=== PATIENT | female | born 1970 | race Caucasian/White ===

== ENCOUNTER 2017-04-26 10:05 | Observation (INO) | payer BC, SELFPAY ==
[2017-04-26] VITALS (23 sets, daily range): BP systolic 127–173; BP diastolic 63–99; PULSE 70–94; RESP 16–24; TEMP 36.6–37.2; O2SAT 91–98; BMI 15.0; BMI 14.8
--- NOTE | 2017-04-26 | IR_ITS ---
PROCEDURE: 1. Catheter placement in the abdominal aorta 2. Abdominal aortography 3. Repositioning of the catheter in the abdominal aorta 4. Left femoral arterial access 5. Left femoral artery retrograde angiogram 6. Angioplasty stent deployment to the left common iliac artery 7. Angioplasty stent deployment to the left external iliac artery 8. Angioplasty stent deployment to the right common iliac artery 9. Reconstruction of the distal abdominal aorta with bilateral stents 10. Catheter placement in the abdominal aorta post stent deployment 11. Bilateral iliofemoral runoff 12. Angiography via the left femoral sheath with unilateral runoff INDICATION: 1. 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 Peripheral artery disease Acutely ischemic left leg with acute limb threatening ischemia Informed consent was obtained prior to the procedure. COMPLICATIONS: None ESTIMATED BLOOD LOSS: Blood loss less than 10 cc. TECHNIQUE:1% lidocaine used to anesthetize the right groin. The right femoral artery was accessed via the Seldinger technique and a 5 Cymro sheath was placed in the right femoral artery. A pigtail catheter was advanced into the abdominal aorta and abdominal aortography was performed. The catheter was then repositioned and bilateral iliofemoral angiography was performed. Following this one percent lidocaine was used to anesthetize the left groin in the left femoral artery was accessed via the Seldinger technique. A 6 Cymro sheath was placed in the left femoral artery and an advantage wire was used to traverse the occlusion in the left external iliac artery and left common iliac artery in a retrograde manner. Following this a 7 mm x 40 mm balloon was used to dilate the common left iliac artery. 5000 units of heparin was administered prior to any balloon manipulation giving an ACT of 247 seconds therefore an additional 2000 units of heparin was administered. 2 9 mm x 60 mm self-expanding stents were deployed in the distal abdominal aorta extending into the bilateral common iliac arteries. Following this an 8 mm x 59 mm Hansen balloon mounted stent was deployed in the left external iliac artery while still overlapping the stent in the left common iliac artery. This was deployed at 14 lacho. Following this a large thrombus was identified in the distal common femoral artery partially obstructing flow to the left SFA and left profunda femoris. The pigtail catheter was placed back in the abdominal aorta and abdominal aortography was performed. Unilateral runoff was then performed on the left side. A 9 mm x 60 mm balloon was placed back into the right common iliac artery and deployed at 10 lacoh in order to post dilate. Excellent angiographic results were obtained with 100% occlusion of the left common and external iliac artery being reduced to less than 10% with 2 bare-metal stents 1 self-expanding one balloon expanding at the end of the procedure the apparatus was removed the groin is reprepped closure changed both she's removed good hemostasis was achieved bilaterally using Perclose devices. ANGIOGRAPHIC RESULTS: Suprarenal and infrarenal abdominal aorta are normal The mesenteric arteries and bilateral renal arteries are normal The right common iliac artery has a mid vessel 50% stenosis while the internal iliac arteries patent and the right external iliac artery and common femoral artery have mild disease. The right profunda femoris is normal while the right superficial femoral artery and right popliteal artery is normal. There is three-vessel runoff below the knee on the right side The left common iliac artery is proximally occluded as is the left external iliac artery. There is reconstitution at the left common femoral artery. The left profunda femoris artery is normal while
--- NOTE | 2017-04-26 10:11 | HMH.EDGENADL ---
ED Disposition Clinical Impression: Ischemic leg, Hyperlipidemia Disposition: Still a Patient Condition on Discharge: Serious Referrals: Amado Pandya MD [Primary Care Provider] - - Critical Care Critical Care Time: Yes Attestation: On , the high probability of a clinically significant, sudden or life threatening deterioration of the following system(s) required my full and direct attention, intervention and personal management. The time I documented below is in addition to time spent performing reported procedures but includes the following listed in this critical care notation. Vital system(s) involved:: Circulatory Failure My critical care processes included: Assessment & monitoring of V/S, Data Review/Interpretation, Coordinating Care, Documentation Medical Decision Making Vital Signs: 04/26/17 10:09 04/26/17 13:26 Temperature 98.2 F 98.2 F Temperature Source Oral Oral Pulse Rate 94 H Pulse Rate [Right Brachial] 94 H Respiratory Rate 18 16 Blood Pressure 162/84 Blood Pressure [Right Arm] 171/97 Blood Pressure Mean [Right Arm] 121 Blood Pressure Source Automatic Cuff Blood Pressure Source [Right Arm] Automatic Cuff Blood Pressure Position Supine Blood Pressure Position [Right Arm] Supine 02 Sat by Pulse Oximetry 98 Oxygen Delivery Method Room Air Room Air - Lab Data Lab Results 04/26/17 10:15: WBC 10.3, RBC 4.87, Hgb 14.1, Hct 45.1, MCV 92.6, MCH 29.0, MCHC 31.4 L, RDW 14.5, Plt Count 633 H, MPV 6.8 L, Neut % (Auto) 80.7 H, Lymph % (Auto) 14.0, [place] % (Auto) 3.0, Eos % (Auto) 1.9, Baso % (Auto) 0.5, Neut # (Auto) 8.3 H, Lymph # (Auto) 1.3, [place] # (Auto) 0.3, Eos # (Auto) 0.2, Baso # (Auto) 0.1 04/26/17 10:15: PT 10.4, INR 0.96, APTT 27.7 04/26/17 10:15: Sodium 139, Potassium 4.3, Chloride 102, Carbon Dioxide 28, Anion Gap 13.3, BUN 8, Creatinine 0.71, Estimated Creat Clear 74, Estimated GFR 88, Est GFR ( Amer) 107, Glucose 103, Calcium 9.0, Total Bilirubin 0.2, AST 18, ALT 35, Alkaline Phosphatase 62, Total Protein 8.6 H, Albumin 3.2 L, Globulin 5.4 H, Albumin/Globulin Ratio 0.6 L, Triglycerides 135, Cholesterol 156, LDL Cholesterol 93, VLDL Cholesterol 27, HDL Cholesterol 36, Cholesterol/HDL Ratio 4.3 H Result diagrams: 04/26/17 10:15 04/26/17 10:15 Orders (Tests/Meds): ED MEDICATIONS Generic Name Dose Route Start Last Admin Trade Name Freq PRN Reason Stop Dose Admin Diphenhydramine HCl 50 mg 04/26/17 13:33 04/26/17 13:36 Benadryl 50mg/1ml Vial IV 04/26/17 13:34 50 mg ONCE ONE Administration Fentanyl Citrate 50 mcg 04/26/17 13:33 Fentanyl 100mcg/2ml Vial IV 04/27/17 13:33 Q3MINP PRN Moderate to Severe Pain Fentanyl Citrate 25 mcg 04/26/17 13:33 Fentanyl 100mcg/2ml Vial IV 04/27/17 13:33 Q3MINP PRN Moderate to Severe Pain Flumazenil 0.2 mg 04/26/17 13:33 Romazicon 0.1mg/Ml 5ml Vial IV 04/26/17 23:00 NEEDED PRN Sedation Heparin Sodium (Porcine) 10,000 unit 04/26/17 13:33 Heparin 1,000 Units/Ml 10ml Vial ([employer]) IV 04/26/17 17:33 NEEDED PRN Emergency Box Rn Care Transition Heparin Sodium/Sodium Chloride 3,000 unit 04/26/17 13:33 04/26/17 13:39 Heparin 1000 Units/500ml Ns ([employer]) IV 04/26/17 13:34 3,000 unit ONCE ONE Administration Sodium Chloride 1,000 mls @ 25 mls/hr 04/26/17 13:45 04/26/17 13:37 Sod Chlor 0.9% 1000ml Bag IV 04/27/17 13:33 25 mls/hr .Q25H JARON Administration Lidocaine HCl 20 ml 04/26/17 13:33 04/26/17 13:36 Lidocaine 1% 20ml Mdv IJ 04/26/17 13:34 20 ml ONCE ONE Administration Midazolam HCl 1 mg 04/26/17 13:33 Midazolam 2mg/2ml Vial IV 04/27/17 13:33 Q3MINP PRN Sedation Midazolam HCl 1 mg 04/26/17 13:33 Midazolam 1mg/Ml 5ml Vial IV 04/27/17 13:33 Q3MINP PRN Sedation Naloxone HCl 0.4 mg 04/26/17 13:33 Narcan 0.4mg/Ml Vial IV 04/27/17 13:33 Q5MINP PRN Decreased respi
--- NOTE | 2017-04-26 10:24 | PC.NURSE ---
PT BROUGHT IN BY FOR EVAL. CAME TO SEE HIM IN OFFICE AND THERE WAS NO PULSE IN HER LEFT FOOT; REPORTS COLD AND BLUE TO TOES.
[2017-04-26 10:44] LABS: Hematocrit 45.1 % (37.0-47.0); Hemoglobin 14.1 g/dL (12.2-16.2); Mean Corpuscular HGB Conc 31.4 g/dL (31.8-35.4); Mean Corpuscular Volume 92.6 fl (81-99); Red Blood Count 4.87 M/mm3 (4.20-5.40); Red Cell Distribution Width 14.5 % (11.5-17.5); White Blood Count 10.3 K/mm3 (4.8-10.8)
[2017-04-26 10:45] LABS: Basophils # 0.1 K/mm3 (0-0.2); Basophils % 0.5 % (0.1-2.0); Eosinophils # 0.2 K/mm3 (0.0-0.4); Eosinophils % 1.9 % (0.1-12.0); Mean Platelet Volume 6.8 fl (7.4-10.4); Monocytes # 0.3 K/mm3 (0.1-1.0); Neutrophils # 8.3 K/mm3 (1.8-7.8); Neutrophils % 80.7 % (37.0-80.0); Platelet Count 633 K/mm3 (142-424)
[2017-04-26 10:47] LABS: Lymphocytes # 1.3 K/mm3 (0.7-4.5)
[2017-04-26 10:51] LABS: Activated Partial Thrombo Time 27.7 seconds (23.6-34.0); INR 0.96 (0.9-1.1); Prothrombin Time 10.4 seconds (9.4-11.8)
[2017-04-26 10:53] LABS: Alanine Aminotransferase 35 U/L (12-78); Albumin Level 3.2 gm/dL (3.4-5.0); Albumin/Globulin Ratio 0.6 (1.1-1.8); Alkaline Phosphatase 62 U/L (46-116); Anion Gap 13.3 mEq/L (5-15); Aspartate Amino Transferase 18 U/L (15-37); Bilirubin,Total 0.2 mg/dL (0.2-1.0); Blood Urea Nitrogen 8 mg/dL (7-18); Carbon Dioxide 28 mmol/L (21.0-32.0); Chloride 102 mmol/L (98-107); Chol/HDL Ratio 4.3 (1-3.5); Cholesterol 156 mg/dL (140-200); Creatinine Clearance Estimated 74 mL/min (0-300); Creatinine,Serum 0.71 mg/dL (0.55-1.02); Estimated Glomerular Filt Rate 88 ml/min (>60); GFR (African American) 107 ML/MIN (>60); Globulin 5.4 gm/dl (1.3-3.2); Glucose 103 mg/dL (74-106); HDL Cholesterol 36 mg/dL (29-89); LDL Cholesterol 93 mg/dL (0-130); Potassium 4.3 mmoL/L (3.5-5.1); Sodium 139 mmol/L (136-145); Total Protein,Serum 8.6 gm/dL (6.4-8.2); Triglycerides 135 mg/dL (30-200); VLDL Cholesterol 27 mg/dL (0-40)
[2017-04-26 17:12] LABS: INR 1.08 (0.9-1.1); Prothrombin Time 11.7 seconds (9.4-11.8)
[2017-04-26 17:30] LABS: Activated Partial Thrombo Time 119.5 seconds (23.6-34.0)
--- NOTE | 2017-04-26 19:39 | PC.NURSE ---
REPORT GIVEN TO VLADIMIR BLUE
[2017-04-27] VITALS (11 sets, daily range): BP systolic 99–138; BP diastolic 58–84; PULSE 70–110; RESP 16–18; TEMP 36.6–37.2; O2SAT 92–98
--- NOTE | 2017-04-27 00:11 | PC.NURSE ---
UPON ASSESSMENT OF PT. SHE WAS NOTED TO HAVE COOL LLE. AREA MARKED @ POINT OF TEMP DIFFERENCE. THIS WAS ALSO REPORTED BY AM NURSE. IT WAS REPORTED TO TURN HEPARIN GTT ON @ 2000 @ 10 ML/HR PER MD. HEPARIN WAS TURNED OFF DUE TO PRIOR PTT. HEPARIN WAS STARTED. MD CALLED @ 1125 FOR STATUS OF PT. MD WAS TOLD THAT LLE CONTINUES TO NOT HAVE PULSE AND IS COOL TO TOUCH. MD ORDERED HEPARIN @ 800 UNITS/HR. HEPARIN WAS INCREASED TO 16 ML/HR. INTEGRILIN ALSO INFUSING @ 2.9 ML/HR. PT PULSE WAS ASSESSED AGAIN WITH DOPPLER. NO PULSE IN LLE @ THIS TIME. PT STATES THAT SHE HAS DISCOMFORT TO HIP AND NEEDLES IN LLE. MD AWARE. V/S ARE STABLE AT THIS TIME. PT IS ON ROOM AIR. WILL CONTINUE TO MONITOR.
[2017-04-27 02:33] LABS: Activated Partial Thrombo Time 31.2 seconds (23.6-34.0)
--- NOTE | 2017-04-27 03:47 | PC.NURSE ---
Addendum entered by mary Frost RN 04/27/17 04:09: INTEGRILIN Original Note: HEPARIN WAS INCREASED THIS AM TO 900 UNITS/HR [facility]. ADDITIONAL PTT SCHEDULED THIS AM @ 0830. INTEGRELIN CONTINUES TO INFUSE @ 2.9 ML/HR. PT STATES THAT SHE CAN FEEL MORE IN LLE THAN BEFORE. LLE IS WARM TO ANKLE THAN BECOMES COOL. THIS IS BETTER THAN EARLY IN SHIFT. PEDAL PULSE IS STILL NOT DETECTED. NOT WITH DOPPLER EITHER. PT IS ON 2L O2 NC WITH SAT OF 94%. LUNGS CONTINUE TO HAVE RHONCHI TO BILATERAL BASES. PT HAS BEEN UP TO BSC THIS SHIFT. URINE OUTPUT 1000 CC. V/S ARE STABLE. PT REMAINS NSR ON TELEMETRY. WILL CONTINUE TO MONITOR.
--- NOTE | 2017-04-27 05:39 | PC.NURSE ---
UPON ASSESSMENT THIS AM OF PT'S LLE. IT WAS NOTED THAT LLE WAS WARM TO TOUCH. PEDAL PULSE WAS ASSESSED, BUT WAS NOT FELT. INFERIOR DORSALIS PEDIS WAS PALPABLE BY TOUCH. DOPPLER WAS USED AGAIN AND PEDAL PULSE WAS HEARD THROUGH DOPPLER . WILL NOTIFY IN AM. HEPARIN GTT CONTINUES TO INFUSE @ 18 ML/HR. INTEGRILIN INFUSING @ 2.9 ML/HR. V/S STABLE. WILL CONTINUE TO MONITOR.
--- NOTE | 2017-04-27 07:41 | PC.NURSE ---
handoff to Amol Lacey
[2017-04-27 09:06] LABS: Activated Partial Thrombo Time 32.3 seconds (23.6-34.0)
--- NOTE | 2017-04-27 10:17 | HMH.HP ---
*Admission Date: 04/26/17 *Chief complaint: leg pain *History of present illness: this wf was seen in pcp office with lt foot pain and noted to have acute art insuff and brought to ed e patient is brought in by Dr. Pandya from his office with symptoms and findings of acute ischemia of her left leg. 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 She has a burning sensation in the front of her lower leg when she touches it. Her left leg feels heavy. When she hangs her left foot down while in a seated position it turns purple, but her right foot does not. Her left toes feel cold. Dr. Pandya found her to have a cold, purple, pulseless left foot and has contacted Dr. Lynn and brings her to the emergency department for treatment of acute arterial ischemia. She not have known peripheral vascular disease. She is a smoker. [facility] History I have reviewed the patient's past medical history: Yes Medical History: Reports:: Chronic Obstructive Pulmonary Disease (COPD), Coronary Artery Disease, Hypertension, Myocardial Infarction Denies:: Cancer, Diabetes Mellitus Type 1, Diabetes Mellitus Type 2, Internal Pacemaker, MRSA Other Medical History: Reports: Anemia Laterality Cases: Bilateral: Tonsillectomy Other Surgeries: Yes: Appendectomy, Dilation and Curettage. No: Pacemaker Amputation: No Fractures: Yes (rt wrist,pelvis) - *Social History Educational Level: Completed High School Smoking Status: Current every day smoker Tobacco Type: cigarettes # Packs/Day (cigarettes): 1 #Yrs smoked (if former smoker): 35 Alcohol Intake: never Alcohol Intake Frequency:: holidays/special occasions only Substance Use Type: denies use Occupational Status: unemployed Housing: apartment Household Members: children - Psychiatric History Expresses thoughts of harming self/others: None Suicide Plan Description: No Plan *Family Hx:: Diabetes, Hypertension, Kidney Disease, Cancer Review of Systems - Review of Systems Review of systems:: pertinent systems reviewed and negative unless documented below - Constitutional Denies fever(s) - Eyes Denies change in vision - ENT Denies tongue swelling - *Cardiovascular Denies chest pain at rest, Denies shortness of breath - *Respiratory Denies chest congestion - *Gastrointestinal Denies abdominal pain - *Musculoskeletal Denies joint pain - Integumentary/Breasts Reports skin pain, Denies rash - *Neurologic Reports numbness, Reports weakness Meds Home Medications Medication Instructions Recorded Confirmed Type Albuterol Sulfate [Albuterol HFA 2 puff INHALATION Q6H 04/26/17 04/26/17 History Inhaler] Amlodipine Besylate [Norvasc 5mg 5 mg PO QDAY 04/26/17 04/26/17 History tablet] Allergies Allergy/AdvReac Type Severity Reaction Status Date / Time codeine [CODEINE] Allergy Unknown Verified 04/26/17 08:37 guaifenesin [GUAIFENESIN] Allergy Unknown Verified 04/26/17 08:37 hydrocodone [HYDROCODONE] Allergy Unknown Verified 04/26/17 08:37 terbutaline [TERBUTALINE] Allergy Unknown Verified 04/26/17 08:37 Exam Vital signs and Labs for Last 24 Hours: Temp Pulse Resp BP Pulse Ox 98.2 F 80 18 123/81 96 04/27/17 08:00 04/27/17 08:13 04/27/17 08:00 04/27/17 08:00 04/27/17 08:00 Laboratory Results - last 24 hr 04/26/17 16:55: PT 11.7, INR 1.08, APTT 119.5 H* D 04/27/17 02:10: APTT 31.2 04/27/17 08:49: APTT 32.3 I & O for Last 24 hours: Intake & Output 04/24/17 04/25/17 04/26/17 04/27/17 11:59 11:59 11:59 11:59 Intake Total 1592 / 1592 Output Total 1000 / 1000 Balance 592 / 592 Weight 105 lb 15.972 oz - Constitutional no acute distress - *Routine HEENT Exam Head: Present: normocephalic Eye: Present: EOMI, PERRL ENT: Absent: mucous membranes dry - *Routine Neck Exam Present: supp
--- NOTE | 2017-04-27 10:35 | PC.NURSE ---
DR CHAUDHARY AT BEDSIDE TO ASSESS PT FOR ROUNDS. SPOKE WITH DR GAMBLE AND INFORMED THIS RN TO DISCONTINUE TO HEPARIN AND INTEGRILIN INFUSIONS R/T IMPROVEMENT OF LLE. ALSO STATS PATIENT CAN COME OUT OF STEP DOWN AND INTO ACUTE STATUS.
--- NOTE | 2017-04-27 11:17 | HMH.PHAHEP ---
[facility] Pharmacy Heparin Dosing - Demographic Data Admission date:: 04/26/17 Date: 04/27/17 Time: 11:17 Allergies/Adverse Reactions: Allergies Allergy/AdvReac Type Severity Reaction Status Date / Time codeine [CODEINE] Allergy Unknown Verified 04/26/17 08:37 guaifenesin [GUAIFENESIN] Allergy Unknown Verified 04/26/17 08:37 hydrocodone [HYDROCODONE] Allergy Unknown Verified 04/26/17 08:37 terbutaline [TERBUTALINE] Allergy Unknown Verified 04/26/17 08:37 Height: 1.8 m Weight: 48 kg - Indication Medication therapy:: Heparin Current Indications:: DVT CVA?: No Bleeding problem?: No Kidney disease?: No [place]?: No Desired PTT range:: 50-70 seconds - Monitoring Dose Monitor 1 Date: 04/26/17 Time: 10:15 (BASELINE PTT) PTT Result:: 27.7 Infusion Rate:: 20 MLS/HR Comment:: PATIENT RECEIVED HEPARIN 3000 UNITS AT 1339 AND HEPARIN 5000 UNITS AT 1430 IN [facility] Dose Monitor 2 Date: 04/26/17 Time: 16:55 PTT Result:: 119.5 Infusion Rate:: STOP INFUSION FOR 2 HOURS AND AND RESTART AT 10 MLS/HR Comment:: [id number], ALSO ON INTEGRILIN DRIP Dose Monitor 3 Date: 04/27/17 Time: 02:10 PTT Result:: 31.2 Infusion Rate:: 18 MLS/HR Dose Monitor 4 Date: 04/27/17 Time: 08:49 PTT Result:: 32.3 Infusion Rate:: 22 MLS/HR - Core Measures Is INR > or = 2 at discharge?: No Most Recent Labs:: Laboratory Results - last 24 hr 04/26/17 16:55: PT 11.7, INR 1.08, APTT 119.5 H* D 04/27/17 02:10: APTT 31.2 04/27/17 08:49: APTT 32.3 If INR was < than 2.0 why was therapy stopped?: CLOT BROKE UP FROM STENTS IN [facility] [employer] [facility] Were Heparin and Warfarin started on the same day?: No If not, why?: HEPARIN STOPPED AFTER CLOT BROKE UP IN [facility] Comments:: DISCHARGED ON ASPIRIN AND BRILINTA
--- NOTE | 2017-04-27 11:20 | P.CONPHA_ITS ---
[facility] Pharmacy Heparin Dosing - Demographic Data Admission date:: 04/26/17 Date: 04/27/17 Time: 11:17 Allergies/Adverse Reactions: Allergies Allergy/AdvReac Type Severity Reaction Status Date / Time codeine [CODEINE] Allergy Unknown Verified 04/26/17 08:37 guaifenesin [GUAIFENESIN] Allergy Unknown Verified 04/26/17 08:37 hydrocodone [HYDROCODONE] Allergy Unknown Verified 04/26/17 08:37 terbutaline [TERBUTALINE] Allergy Unknown Verified 04/26/17 08:37 Height: 1.8 m Weight: 48 kg - Indication Medication therapy:: Heparin Current Indications:: DVT CVA?: No Bleeding problem?: No Kidney disease?: No [place]?: No Desired PTT range:: 50-70 seconds - Monitoring Dose Monitor 1 Date: 04/26/17 Time: 10:15 (BASELINE PTT) PTT Result:: 27.7 Infusion Rate:: 20 MLS/HR Comment:: PATIENT RECEIVED HEPARIN 3000 UNITS AT 1339 AND HEPARIN 5000 UNITS AT 1430 IN DIRECTOR CHANNEL Dose Monitor 2 Date: 04/26/17 Time: 16:55 PTT Result:: 119.5 Infusion Rate:: STOP INFUSION FOR 2 HOURS AND AND RESTART AT 10 MLS/HR Comment:: [id number], ALSO ON INTEGRILIN DRIP Dose Monitor 3 Date: 04/27/17 Time: 02:10 PTT Result:: 31.2 Infusion Rate:: 18 MLS/HR Dose Monitor 4 Date: 04/27/17 Time: 08:49 PTT Result:: 32.3 Infusion Rate:: 22 MLS/HR - Core Measures Is INR > or = 2 at discharge?: No Most Recent Labs:: Laboratory Results - last 24 hr 04/26/17 16:55: PT 11.7, INR 1.08, APTT 119.5 H* D 04/27/17 02:10: APTT 31.2 04/27/17 08:49: APTT 32.3 If INR was < than 2.0 why was therapy stopped?: CLOT BROKE UP FROM STENTS IN [facility] CHANNEL Were Heparin and Warfarin started on the same day?: No If not, why?: HEPARIN STOPPED AFTER CLOT BROKE UP IN [employer] CHANNEL Comments:: DISCHARGED ON ASPIRIN AND BRILINTA
--- NOTE | 2017-04-27 15:24 | HMH.PHAVTE ---
[facility] Pharmacy VTE Monitoring - Patient Demographics Admission date: 04/26/17 Report Date: 04/27/17 Time: 15:24 Allergies/Adverse Reactions: Patient Allergies codeine [CODEINE] Allergy (Unknown, Verified 04/26/17 08:37) guaifenesin [GUAIFENESIN] Allergy (Unknown, Verified 04/26/17 08:37) hydrocodone [HYDROCODONE] Allergy (Unknown, Verified 04/26/17 08:37) terbutaline [TERBUTALINE] Allergy (Unknown, Verified 04/26/17 08:37) Height: 1.8 m Weight: 48.08 kg Patient Problems: Current Active Problems Hyperlipidemia (Acute) Ischemic leg (Acute) Arterial insufficiency of lower extremity (Acute) - VTE Risk Labs: VTE Related Lab Results Hgb 14.1 g/dL (12.2-16.2) 04/26/17 10:15 Hct 45.1 % (37.0-47.0) 04/26/17 10:15 Plt Count 633 K/mm3 (142-424) H 04/26/17 10:15 PT 11.7 seconds (9.4-11.8) 04/26/17 16:55 INR 1.08 (0.9-1.1) 04/26/17 16:55 APTT 32.3 seconds (23.6-34.0) 04/27/17 08:49 BUN 8 mg/dL (7-18) 04/26/17 10:15 Creatinine 0.71 mg/dL (0.55-1.02) 04/26/17 10:15 Estimated Creat Clear 74 mL/min (0-300) 04/26/17 10:15 Was VTE Risk Assessment Performed: Yes VTE Score: 4 VTE Risk Level: Low Risk - Prophylaxis VTE Prophylaxis Ordered?: Yes Types of VTE Prophylaxis: IPCS Knee High Location of Applied Device: Bilateral Lower Extremeties Pharmacologic Type: Heparin (PT WAS ON HEPARIN WHEN ADMITTED. STOPPED AT 1015 THIS MORNING.)
[2017-04-28] VITALS: PULSE 80
[2017-04-28 03:58] VITALS: BP 133/69; PULSE 82; RESP 16; TEMP 36.9; O2SAT 98
[2017-04-28 04:00] VITALS: PULSE 111
--- NOTE | 2017-04-28 04:39 | PC.NURSE ---
PT HAS SLEPT. NO COMPLAINTS. CONTINUES ON 2L PER NC. NONPRODUCTIVE COUGH NOTED. NSR ON TELEMETRY. BILAT GROINS WITH DRSG INTACT. PEDAL PULSE LEFT POSITIVE WITH DOPPLER. RIGHT PEDAL PULSES PALPABLE.
[2017-04-28 07:16] VITALS: BP 108/62; PULSE 89; RESP 20; TEMP 36.7; O2SAT 93
--- NOTE | 2017-04-28 08:37 | HMH.DCSUM ---
General - General Admission date: 04/26/17 Discharge date: 04/28/17 HPI HPI: this wf was seen in pcp office with lt foot pain and noted to have acute art insuff and brought to ed e patient is brought in by Dr. Pandya from his office with symptoms and findings of acute ischemia of her left leg. 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 She has a burning sensation in the front of her lower leg when she touches it. Her left leg feels heavy. When she hangs her left foot down while in a seated position it turns purple, but her right foot does not. Her left toes feel cold. Dr. Pandya found her to have a cold, purple, pulseless left foot and has contacted Dr. Lynn and brings her to the emergency department for treatment of acute arterial ischemia. She not have known peripheral vascular disease. She is a smoker. Objective Vital signs: Temp Pulse Resp BP Pulse Ox 98.0 F 89 20 108/62 93 L 04/28/17 07:16 04/28/17 07:16 04/28/17 07:16 04/28/17 07:16 04/28/17 07:16 no acute distress - *Routine HEENT Exam Head: Present: normocephalic Eye: Present: EOMI, PERRL ENT: Present: mucous membranes moist - *Routine Neck Exam Present: supple - *Routine Respiratory Exam Absent: respiratory distress - *Routine Cardiovascular Exam Present: RRR, murmur - *Routine Abdominal Exam Present: soft - *Routine Extremities Exam Comments: looks good lt lower leg - *Routine Skin Exam Present: intact - *Routine Neurological Exam Present: alert, oriented X3, CN II-XII intact - Routine Psychiatric Exam Present: normal affect Hospital Course Hospital Course: pt was seen by card with urgent stenting and iv heparin ession: Successful stenting of the left common iliac artery and left external iliac artery. Another percent occlusion reduced to 0% with 2 bare-metal stents Successful stenting of the right common iliac artery moderate stenosis reduced to less than 10% with 1 bare-metal stent Successful reconstruction of the aortic bifurcation with 2 bare-metal stents Thrombus in the left proximal superficial femoral artery and left profunda femoris artery as well as distal left popliteal artery. Plan: Heparin and Integrilin digit should be continued overnight Patient needs to be monitored for acute or worsening ischemia the left leg. If this should occur she will be taken back to the [facility] and an antegrade stick will be performed in order to manually re-cannulate the infrageniculate vasculature. Otherwise we will hope Integrilin and heparin will provide clot dissolution overnight Avoidance of tobacco products Brilinta and aspirin High intensity statin therapy with goal LDL less than 55 Cardiac rehabilitation pt with ambulation and no pain today Results Labs on day of discharge: Labs from last 24 hours 04/27/17 08:49 APTT 32.3 DS: Diagnosis - Discharge Diagnosis (1) Arterial insufficiency of lower extremity Status: Resolved Meds Home Medications Medication Instructions Recorded Confirmed Type Albuterol Sulfate [Albuterol HFA 2 puff INHALATION Q6H 04/26/17 04/26/17 History Inhaler] Amlodipine Besylate [Norvasc 5mg 5 mg PO DAILY 04/26/17 04/27/17 History tablet] Gabapentin [Gabapentin 100mg Cap] 100 mg PO DAILY 04/27/17 04/27/17 History Allergies Allergy/AdvReac Type Severity Reaction Status Date / Time codeine [CODEINE] Allergy Unknown Verified 04/26/17 08:37 guaifenesin [GUAIFENESIN] Allergy Unknown Verified 04/26/17 08:37 hydrocodone [HYDROCODONE] Allergy Unknown Verified 04/26/17 08:37 terbutaline [TERBUTALINE] Allergy Unknown Verified 04/26/17 08:37 Discharge Plan - Patient Discharge Instructions ACTIVITY: Continue current activity DIET: continue same diet - Follow up Plan Follow up with:
--- NOTE | 2017-04-28 08:41 | P.DS_ITS ---
General - General Admission date: 04/26/17 Discharge date: 04/28/17 HPI HPI: this wf was seen in pcp office with lt foot pain and noted to have acute art insuff and brought to ed e patient is brought in by Dr. Pandya from his office with symptoms and findings of acute ischemia of her left leg. 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 She has a burning sensation in the front of her lower leg when she touches it. Her left leg feels heavy. When she hangs her left foot down while in a seated position it turns purple, but her right foot does not. Her left toes feel cold. Dr. Pandya found her to have a cold, purple, pulseless left foot and has contacted Dr. Lynn and brings her to the emergency department for treatment of acute arterial ischemia. She not have known peripheral vascular disease. She is a smoker. Objective Vital signs: Temp Pulse Resp BP Pulse Ox 98.0 F 89 20 108/62 93 L 04/28/17 07:16 04/28/17 07:16 04/28/17 07:16 04/28/17 07:16 04/28/17 07:16 no acute distress - *Routine HEENT Exam Head: Present: normocephalic Eye: Present: EOMI, PERRL ENT: Present: mucous membranes moist - *Routine Neck Exam Present: supple - *Routine Respiratory Exam Absent: respiratory distress - *Routine Cardiovascular Exam Present: RRR, murmur - *Routine Abdominal Exam Present: soft - *Routine Extremities Exam Comments: looks good lt lower leg - *Routine Skin Exam Present: intact - *Routine Neurological Exam Present: alert, oriented X3, CN II-XII intact - Routine Psychiatric Exam Present: normal affect Hospital Course Hospital Course: pt was seen by card with urgent stenting and iv heparin ession: Successful stenting of the left common iliac artery and left external iliac artery. Another percent occlusion reduced to 0% with 2 bare-metal stents Successful stenting of the right common iliac artery moderate stenosis reduced to less than 10% with 1 bare-metal stent Successful reconstruction of the aortic bifurcation with 2 bare-metal stents Thrombus in the left proximal superficial femoral artery and left profunda femoris artery as well as distal left popliteal artery. Plan: Heparin and Integrilin digit should be continued overnight Patient needs to be monitored for acute or worsening ischemia the left leg. If this should occur she will be taken back to the [facility] and an antegrade stick will be performed in order to manually re-cannulate the infrageniculate vasculature. Otherwise we will hope Integrilin and heparin will provide clot dissolution overnight Avoidance of tobacco products Brilinta and aspirin High intensity statin therapy with goal LDL less than 55 Cardiac rehabilitation pt with ambulation and no pain today Results Labs on day of discharge: Labs from last 24 hours 04/27/17 08:49 APTT 32.3 DS: Diagnosis - Discharge Diagnosis (1) Arterial insufficiency of lower extremity Status: Resolved Meds Home Medications Medication Instructions Recorded Confirmed Type Albuterol Sulfate [Albuterol HFA 2 puff INHALATION Q6H 04/26/17 04/26/17 History Inhaler] Amlodipine Besylate [Norvasc 5mg 5 mg PO DAILY 04/26/17 04/27/17 History tablet
[2017-05-30 08:19] LABS: CATHL Activated Clotting Time 241 SEC (74-125)
[2017-05-30 08:20] LABS: CATHL Activated Clotting Time 258 SEC (74-125)
== END 2017-04-28 09:45 | disposition home or self-care (01) | DRG 253 ==
LOC: ER 10:41 → ICU 17:03 → 2ND 04-28 08:50 → ICU 05-17 14:07
PROVIDERS: Internal Medicine; Admitting Provider Emergency Medicine; Emergency Provider Emergency Medicine; Family Provider Emergency Medicine; PCP Emergency Medicine; Visit Provider Emergency Medicine
PROC: 04H033Z Insertion of Infusion Device into Abdominal Aorta, Percutaneous Approach (ICD-10-PCS; principal; 2017-04-26 13:30)
DX: I73.9 Peripheral vascular disease, unspecified (principal); I74.3 Embolism and thrombosis of arteries of the lower extremities; I75.022 Atheroembolism of left lower extremity; I10 Essential (primary) hypertension; Z72.0 Tobacco use; J44.9 Chronic obstructive pulmonary disease, unspecified
CPT/HCPCS: 36200; 36246; 36415; 37221; 37223; 37236; 75710; 75716; 80053; 80061; 85025; 85347; 85610; 85730; 93005; 93041; 94760; 94761; 99152; 99153; 99281; C1725; C1760; C1769; C1876; C1894; G0378; J1327; J1644; Q9966

== ENCOUNTER → 2017-05-22 06:53 | Outpatient (CLI) | payer BC, SELFPAY ==
--- NOTE | 2017-05-22 | CA_ITS ---
PROCEDURE: 2-D M-mode and color Doppler study INDICATIONS FOR THE TEST: Chest pain COPD+ Heart Murmur Tobacco Smoking+ Palpitations+ Fatigue Syncope Edema+ Hypertension+Diabetes Mellitus Rheumatic Fever SOB NEW+Obesity Hyperlipidemia Family History HD Additional History PAD, Hx of RI, dizziness, peripheral stents PATIENT INFORMATION HEIGHT: 66 WEIGHT: 110 GENDER: Female B/P: 123/81 2-D/M-MODE INTERPRETATION: 2-D MEASUREMENTS OBSERVED VALUES IN CMS Right Ventricular Dimension (RVDd) 1.8 Interventricular Septum (Thickness)(IVsd) 0.9 Left Ventricular Internal Dimensions(LVIDd) 3.8 Left Ventricular Posterior Wall (Thickness)(LVPWd) 1.0 Aortic Root 2.0 Aortic Cusp Separation 2.0 Left Atrial Dimensions (LAD) 2.1 2D 1. Left atrium is normal size, left ventricle is normal size, there is no concentric left ventricular hypertrophy, visually estimated ejection fraction 55% with no obvious regional wall motion abnormality. 2. The right atrium and right ventricle are normal size and contractility. 3. The aortic valve is minimally thickened and fibrosed. 4. The mitral and tricuspid valve are grossly normal. 5. The pulmonic valve is poorly visualized. 6. No significant pericardial effusion noted. DOPPLER INTERROGATION: Doppler interrogation of the aortic, mitral and tricuspid valvular presence of mild mitral and tricuspid regurgitation. Diastolic parameters are inconclusive. CONCLUSION: 1. Normal left ventricular size, preserved left ventricular systolic function, visually estimated ejection fraction 55% with no obvious regional wall motion abnormality, diastolic parameters are inconclusive. 2. Mild mitral and tricuspid regurgitation 3. No significant pericardial effusion noted.
--- NOTE | 2017-05-22 | CA_ITS ---
CARDIOLITE SPECT MYOCARDIAL PERFUSION SCAN, REST AND STRESS: EXERCISE STRESS [facility] REVIEW QGS EF AND WALL MOTION EVALUATION: QPS - PERFUSION EVALUATION HISTORY: pad, hld, htn, ex smoker, family h/o heart disease DOSE: 10.72 mCi technetium 99m mibi intravenously at rest followed by 32.3 mCi technetium 99m mibi following the intravenous ministration of 0.4 mg of Lexiscan. Resting blood pressure is 155/82. Stress blood pressure 136/78. FINDINGS: Ejection fraction is calculated to be 67. Uniform myocardial activity with both stress and rest gated images calculated ejection fraction of 67% with normal wall motion IMPRESSION: No scintigraphic evidence of Lexiscan-induced myocardial ischemia with normal ejection fraction and normal wall motion
--- NOTE | 2017-05-22 06:57 | NM_ITS ---
CARDIOLITE SPECT MYOCARDIAL PERFUSION SCAN, REST AND STRESS: EXERCISE STRESS [facility] REVIEW QGS EF AND WALL MOTION EVALUATION: QPS - PERFUSION EVALUATION HISTORY: pad, hld, htn, ex smoker, family h/o heart disease DOSE: 10.72 mCi technetium 99m mibi intravenously at rest followed by 32.3 mCi technetium 99m mibi following the intravenous ministration of 0.4 mg of Lexiscan. Resting blood pressure is 155/82. Stress blood pressure 136/78. FINDINGS: Ejection fraction is calculated to be 67. Uniform myocardial activity with both stress and rest gated images calculated ejection fraction of 67% with normal wall motion IMPRESSION: No scintigraphic evidence of Lexiscan-induced myocardial ischemia with normal ejection fraction and normal wall motion
--- NOTE | 2017-05-22 07:51 | HMH.ITSHM ---
ATORVASTATIN VENTOLIN BRILINTA AMLODIPINE ASA
--- NOTE | 2017-05-22 08:40 | CA_ITS ---
CARDIOLITE SPECT MYOCARDIAL PERFUSION SCAN, REST AND STRESS: EXERCISE STRESS [facility] REVIEW QGS EF AND WALL MOTION EVALUATION: QPS - PERFUSION EVALUATION HISTORY: pad, hld, htn, ex smoker, family h/o heart disease DOSE: 10.72 mCi technetium 99m mibi intravenously at rest followed by 32.3 mCi technetium 99m mibi following the intravenous ministration of 0.4 mg of Lexiscan. Resting blood pressure is 155/82. Stress blood pressure 136/78. FINDINGS: Ejection fraction is calculated to be 67. Uniform myocardial activity with both stress and rest gated images calculated ejection fraction of 67% with normal wall motion IMPRESSION: No scintigraphic evidence of Lexiscan-induced myocardial ischemia with normal ejection fraction and normal wall motion
== END ==
PROVIDERS: Family Provider Emergency Medicine; PCP Emergency Medicine; Visit Provider Internal Medicine
DX: R94.31 Abnormal electrocardiogram [ECG] [EKG] (principal)
CPT/HCPCS: 78452; 93005; 93017; 93306; A9502; J2785

== ENCOUNTER → 2017-06-10 07:41 | Outpatient (CLI) | payer BC, SELFPAY ==
--- NOTE | 2017-06-10 07:44 | MR_ITS ---
MR lumbar spine wo con, MR 3-d myelogram/MRCP, the the the HISTORY: PT states low back pain X years. Lt leg pain, numbness and tingling. ORDERING PHYSICIAN: Amado Pandya MD PATIENT AGE: 47 years COMPARISON: MRI 12/03/14 TECHNIQUE: Standard multiplanar multiecho sequences are performed without contrast. 3-D MIP and myelographic images are also rendered and reviewed FINDINGS: There are only 4 lumbar segments as noted on the previous plain films and previous MRI. If any intervention is contemplated then correlation with plain films and labeling system utilized recommended. There is normal alignment. The spinal cord ends at the T12-L1 level. T12-L1, L1-L2, and L2-L3 have an unremarkable appearance. L3-L4: Mild concentric bulging disc with mild disc desiccation and mild facet hypertrophic change with mild bilateral lateral recess narrowing and mild left foraminal narrowing. There is very slightly eccentric toward the left but no neural impingement evident. L4 S1: Minimal bulging disc with mild facet and ligamentum flavum hypertrophy with mild bilateral foraminal narrowing slightly greater on the left. IMPRESSION: 1. 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 2. Mild bulging disc with facet hypertrophic changes at L3-L4 and L4 S1 with mild bilateral lateral recess and foraminal narrowing slightly greater on the left 3. No disc herniation or canal stenosis 4. Overall no significant change compared to the previous exam
== END ==
PROVIDERS: Family Provider Emergency Medicine; PCP Emergency Medicine; Visit Provider Emergency Medicine
DX: M54.9 Dorsalgia, unspecified (principal)
CPT/HCPCS: 72148; 76376

== ENCOUNTER → 2017-10-29 07:42 | Outpatient (CLI) | payer BC, SELFPAY ==
--- NOTE | 2017-10-29 08:30 | MM_ITS ---
MM Dig mamm BI DX w/CAD, US breast RT complete INDICATION: Palpable abnormality right breast ORDERING PHYSICIAN: Amado Pandya MD PATIENT AGE: 47 years COMPARISON: 08/04/2014 and 08/22/2015 TECHNIQUE: Bilateral diagnostic mammogram performed along with right breast ultrasound FINDINGS: There is dense fibroglandular tissue which decreases the sensitivity of mammography. Right breast: Asymmetric increased density is present in the outer aspect of the right breast at 3.5 cm. This represents a large cyst by ultrasound. There is a benign-appearing 4 mm nodule along posterior aspect of the right breast laterally also probably representing a small cyst 7:00. Left breast: Very dense fibroglandular tissue is present on the left with benign-appearing calcifications. Biopsy with clip in the upper outer quadrant. Asymmetric density is present involving the medial aspect of the left breast. This did have a similar appearance on 66 the. Previously noted microcalcifications in the lateral aspect of the left breast are no longer apparent. There are other faint calcifications in the central aspect of the left breast which have a benign appearance. Right breast ultrasound: There is a 3.3 x 2 cm nonappearing cyst in the 9:00 region of the right breast corresponding to palpable abnormality and the asymmetric density noted on the mammogram. IMPRESSION: Very dense fibroglandular tissue decreasing the sensitivity of mammography. Palpable abnormality in the outer aspect of the right breast corresponds to a benign-appearing cyst. No evidence of malignancy. This cyst could be aspirated with sonographic guidance if clinically warranted for patient comfort measures. BI-RADS Category: 2 Benign Finding(s) RECOMMENDED FOLLOW-UP: 1YR - 1 YEAR FOLLOW-UP (A letter has been sent to the patient regarding results of the study.)
== END ==
PROVIDERS: Family Provider Emergency Medicine; PCP Emergency Medicine; Visit Provider Emergency Medicine
DX: Z12.31 Encounter for screening mammogram for malignant neoplasm of breast (principal)
CPT/HCPCS: 76641; 77066

== ENCOUNTER → 2018-01-22 10:23 | Outpatient (CLI) | payer BC, SELFPAY ==
--- NOTE | 2018-01-22 10:26 | XR_ITS ---
EXAM: XR lumbar spine min 4V HISTORY: ITS.REASON: back pain ORDERING PHYSICIAN: Coty Davis PATIENT AGE: 47 years COMPARISON: None FINDINGS: Normal alignment. There are only 4 nonrib bearing lumbar segments. No fracture or dislocation. No lytic or blastic change. No significant degenerative change. The disc spaces are preserved. Bilateral iliac artery stents are present. IMPRESSION: Negative lumbar spine
== END ==
PROVIDERS: PCP Emergency Medicine; Visit Provider Nurse Practitioner Family
DX: M54.5 Low back pain (principal)
CPT/HCPCS: 72110

== ENCOUNTER 2018-01-29 07:28 | Outpatient (RCR) | payer BC, SELFPAY ==
--- NOTE | 2018-01-29 09:18 | HMH.PTOPEV ---
PT Outpatient Evaluation Rehab PT Outpatient Evaluation Start: 01/29/18 07:59 Freq: Status: Active Protocol: Document 01/29/18 08:55 LORRI (Rec: 01/29/18 09:18 LORRI [id number]) Electronically Signed By Mook Oliveros, PT 01/29/18 08:55 Outpatient Therapy Subjective History Subjective History Patient is a 47 year old female presenting to outpatient PT with reports of chronic low back pain with BLE radiculopathy (L>R) starting approximately 37 years ago. 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 She most recently saw her PCP and received oral steroids dose and 2 steriod injections that approx 1 week ago that has provided no relief. No previous PT Rx to report. Pt reports previous Rx with chiropractor that provided no relief. Comorbidites include hx of HI in 2017, 5 LE blood clots with B iliac vein stent placement, COPD. Chief Complaint Pain Spasms Paresthesia Weakness Symptom Type Ache Sharp Tingling Symptoms Relieved By Rest/Positioning Heat Ice OTC Meds Prescription Meds Activity Prior Functional Limitations Reaching Lifting Housework Standing Sitting Squatting Recreation Activity Walking Stairs Bending/Stooping Current Functional Limitations Reaching Lifting Housework Standing Sitting Squatting
== END 2018-01-29 07:30 | disposition home or self-care (01) ==
LOC: PT 07:28
PROVIDERS: Visit Provider Emergency Medicine
DX: M54.42 Lumbago with sciatica, left side (principal)
CPT/HCPCS: 97163

== ENCOUNTER 2018-08-21 12:10 | Emergency (ER) | payer BC, SELFPAY ==
[2018-08-21 12:19] VITALS: BP 143/93; PULSE 114; RESP 20; TEMP 36.8; O2SAT 97; BMI 18.8
[2018-08-21 12:24] VITALS: BP 143/93; PULSE 114; RESP 20; TEMP 36.8; O2SAT 97; BMI 18.8
--- NOTE | 2018-08-21 12:25 | XR_ITS ---
XR coccyx 2V CLINICAL INDICATION: Posttraumatic pain ITS.REASON: FALL ORDERING PHYSICIAN: Anne Saldana APRN PATIENT AGE: 48 years Comparison: None FINDINGS: There is a nondisplaced fracture involving the S5 sacral segment. There is minimal anterior angulation of the distal fracture fragment. IMPRESSION: Nondisplaced fracture involves the S5 sacral segment
--- NOTE | 2018-08-21 13:01 | HMH.EDUTC ---
[facility] [place] Disposition Clinical Impression: Fractured coccyx Qualifiers: Encounter type: initial encounter Fracture type: open Qualified Code(s): S32.2XXB - Fracture of coccyx, initial encounter for open fracture Disposition: Home, Self-Care Condition on Discharge: Good Instructions: Coccyx Fracture, DI for Coccyx Fracture Additional Instructions: Rest the extremity, Ice 15-20 minutes 3-4 times daily, Sitting on pillow may help with pain Soaking in warm water with epson salt may help with pain Return if needed Over the counter Motrin and Tyelnol as directed on package for pain Straight to ER if any life threatening symptoms Follow up with family doctor Referrals: Amado Pandya MD [Primary Care Provider] - As needed Time of Disposition: 13:40 Medical Decision Making - Sarkis Inquiry Pt receiving controlled substance: No Sarkis was queried for this patient: No Vital Signs: 08/21/18 12:19 08/21/18 12:24 Temperature 98.2 F 98.2 F Temperature Source Oral Oral Pulse Rate [Left Radial] 114 H 114 H Respiratory Rate 20 20 Blood Pressure [Right Arm] 143/93 H 143/93 H Blood Pressure Mean [Right Arm] 109 109 Blood Pressure Source [Right Arm] Automatic Cuff Automatic Cuff Blood Pressure Position [Right Arm] Sitting Sitting 02 Sat by Pulse Oximetry 97 97 Oxygen Delivery Method Room Air Room Air Orders (Tests/Meds): ORDERS Category Date Time Status XR coccyx 2V Stat Exams 08/21/18 12:25 Taken - Radiology Data #1 Image(s): Other (coccyx) Image Reviewed: Yes I reviewed the patient's radiology image w/the ED provider Fracture coccyx [facility] [place] HPI - General Stated complaint: Pain in tailbone ao 1100 Time Seen by Provider: 08/21/18 13:01 Mode of Arrival: Family Vehicle Source of Information: Patient Limitations: No Limitations Description of Symptoms (Recalled from Triage Doc. by RN): S/P FALL DOWN STEPS WITH C/O TAILBONE PAIN HEENT Symptoms (Recalled from RN notes): No Resp Symptoms (Recalled from RN notes): No Skin Symptoms (Recalled from RN notes): No MS Symptoms (Recalled from RN notes): Yes Functional Status (Recalled from RN notes): N/A - History of Present Illness Provider Complaint: Patient states that she was walking down the steps this morning at home and she was carrying the baby and she slipped and fell and landed on her butt on the steps and thinks she may have broke her tailbone State that she has been having pain when she sits or stands - Related Data Home Medications Medication Instructions Recorded Confirmed Aspirin [Aspirin 81mg EC Tab] 81 mg PO DAILY 05/28/18 06/13/18 Clopidogrel Bisulfate [Plavix 75mg 75 mg PO DAILY 05/28/18 06/13/18 Tab] Fluticasone Propionate [Flonase 1 spray INTRANASAL QDAY 05/28/18 06/13/18 Allergy Relief NS] albuterol sulfate 2.5 mg/3 mL 2.5 mg CONTINUOUS NEBULIZATION Q6H 06/02/18 06/13/18 (0.083 %) solution for nebulization PRN 30 Days ml buPROPion HCl [Wellbutrin 75mg 75 mg PO DAILY 06/13/18 06/13/18 Tablet] Previous Rx's Medication Instructions Recorded amlodipine 5 mg tablet 5 mg PO DAILY #30 tab 05/27/18 clonazepam 0.5 mg tablet 0.5 mg PO BID PRN #60 tab 06/02/18 albuterol sulfate HFA 90 2 puff INHALATION Q6H #6.7 g 06/25/18 mcg/actuation aerosol inhaler tiotropium bromide 2.5 2 puff INHALATION Q24H #4 g 06/25/18 mcg/actuation mist for inhalation atorvastatin 20 mg tablet 20 mg PO DAILY #30 tab 08/01/18 bupropion HCl XL 150 mg 24 hr 150 mg PO DAILY #30 tab 08/01/18 tablet, extended release loratadine 10 mg tablet See Rx Instructions .ROUTE 08/05/18 .COMPLEX #90 tab Allergies Allergy/AdvReac Type Severity Reaction Status Date / Time codeine [CODEINE] Allergy Unknown Verified 07/29/18 14:03 guaifenesin [GUAIFENESIN] Allergy Unknown Verified 07/29/18 14:03 hydrocodone [HYDROCODONE] Allergy Unknown Verified 07/29/18 14:03 terbutaline [TERBUTALINE] Allergy Unknown Verified 07/29/18 14:03 - Worker's Co
--- NOTE | 2018-08-21 13:06 | ED_ITS ---
[facility] [place] Disposition Clinical Impression: Fractured coccyx Qualifiers: Encounter type: initial encounter Fracture type: open Qualified Code(s): S32.2XXB - Fracture of coccyx, initial encounter for open fracture Disposition: Home, Self-Care Condition on Discharge: Good Instructions: Coccyx Fracture, DI for Coccyx Fracture Additional Instructions: Rest the extremity, Ice 15-20 minutes 3-4 times daily, Sitting on pillow may help with pain Soaking in warm water with epson salt may help with pain Return if needed Over the counter Motrin and Tyelnol as directed on package for pain Straight to ER if any life threatening symptoms Follow up with family doctor Referrals: Amado Pandya MD [Primary Care Provider] - As needed Time of Disposition: 13:40 Medical Decision Making - Sarkis Inquiry Pt receiving controlled substance: No Sarkis was queried for this patient: No Vital Signs: 08/21/18 12:19 08/21/18 12:24 Temperature 98.2 F 98.2 F Temperature Source Oral Oral Pulse Rate [Left Radial] 114 H 114 H Respiratory Rate 20 20 Blood Pressure [Right Arm] 143/93 H 143/93 H Blood Pressure Mean [Right Arm] 109 109 Blood Pressure Source [Right Arm] Automatic Cuff Automatic Cuff Blood Pressure Position [Right Arm] Sitting Sitting 02 Sat by Pulse Oximetry 97 97 Oxygen Delivery Method Room Air Room Air Orders (Tests/Meds): ORDERS Category Date Time Status XR coccyx 2V Stat Exams 08/21/18 12:25 Taken - Radiology Data #1 Image(s): Other (coccyx) Image Reviewed: Yes I reviewed the patient's radiology image w/the ED provider Fracture coccyx [facility] [place] HPI - General Stated complaint: Pain in tailbone ao 1100 Time Seen by Provider: 08/21/18 13:01 Mode of Arrival: Family Vehicle Source of Information: Patient Limitations: No Limitations Description of Symptoms (Recalled from Triage Doc. by RN): S/P FALL DOWN STEPS WITH C/O TAILBONE PAIN HEENT Symptoms (Recalled from RN notes): No Resp Symptoms (Recalled from RN notes): No Skin Symptoms (Recalled from RN notes): No MS Symptoms (Recalled from RN notes): Yes Functional Status (Recalled from RN notes): N/A - History of Present Illness Provider Complaint: Patient states that she was walking down the steps this morning at home and she was carrying the baby and she slipped and fell and landed on her butt on the steps and thinks she may have broke her tailbone State that she has been having pain when she sits or stands - Related Data Home Medications Medication Instructions Recorded Confirmed Aspirin [Aspirin 81mg EC Tab] 81 mg PO DAILY 05/28/18 06/13/18 Clopidogrel Bisulfate [Plavix 75mg 75 mg PO DAILY 05/28/18 06/13/18 Tab] Fluticasone Propionate [Flonase 1 spray INTRANASAL QDAY 05/28/18 06/13/18 Allergy Relief NS] albuterol sulfate 2.5 mg/3 mL 2.5 mg CONTINUOUS NEBULIZATION Q6H 06/02/18 06/13/18 (0.083 %) solution for nebulization PRN 30 Days ml buPROPion HCl [Wellbutrin 75mg 75 mg PO DAILY 06/13/18 06/13/18 Tablet] Previous Rx's Medication Instructions Recorded amlodipine 5 mg tablet 5 mg PO DAILY #30 tab 05/27/18 clonazepam 0.5 mg tablet 0.5 mg PO BID PRN #60 tab 06/02/18 albute
[2018-08-21 13:45] VITALS: BP 143/93; PULSE 114; RESP 20; TEMP 36.8; O2SAT 97
== END 2018-08-21 13:50 | disposition home or self-care (01) ==
LOC: ER 12:18 → UTC 12:21
PROVIDERS: Emergency Provider Nurse Practitioner; PCP Emergency Medicine
DX: S32.2XXA Fracture of coccyx, initial encounter for closed fracture (principal); W10.9XXA Fall (on) (from) unspecified stairs and steps, initial encounter; Y92.019 Unspecified place in single-family (private) house as the place of occurrence of the external cause; I10 Essential (primary) hypertension; J44.9 Chronic obstructive pulmonary disease, unspecified; I25.10 Atherosclerotic heart disease of native coronary artery without angina pectoris; F17.210 Nicotine dependence, cigarettes, uncomplicated; F41.9 Anxiety disorder, unspecified; Z88.5 Allergy status to narcotic agent
CPT/HCPCS: 72220; 99201

== ENCOUNTER → 2018-10-10 14:55 | Outpatient (CLI) | payer BC, SELFPAY ==
--- NOTE | 2018-10-10 15:04 | US_ITS ---
US transvaginal HISTORY: ITS.REASON: US T/V- Heavy Bleeding ORDERING PHYSICIAN: Jose Briggs MD PATIENT AGE: 48 years Comparison: None FINDINGS: The empty uterus measures 6.4 x 3.9 x 5.3 cm. Endometrial thickness is 8.7 mm. Right ovary is 2.6 x 1.6 x 2.1 cm. There is blood flow to the right ovary. There is a hypoechoic nodule in the periphery of the right ovary and this measures 1.4 cm. Left ovary is 2.3 x 1.3 x 1.9 cm and shows normal blood flow. There is a anechoic smoothly marginated lesion in the left ovary measuring 1.3 cm with distal acoustic enhancement. There is no cul-de-sac fluid. Impression: Right ovarian 1.4 cm lesion possible chronic hemorrhagic cyst. Consider follow-up in 6-8 weeks. Left ovarian benign 1.3 cm cyst.
== END ==
PROVIDERS: PCP Emergency Medicine; Visit Provider Nurse Practitioner Obstetrics & Gynecology
DX: N92.0 Excessive and frequent menstruation with regular cycle (principal)
CPT/HCPCS: 76830

== ENCOUNTER → 2018-11-10 09:01 | Outpatient (CLI) | payer BC, SELFPAY ==
--- NOTE | 2018-11-10 09:04 | MM_ITS ---
PROCEDURE: MM DIG SCREENING MAMM BI W/CAD CLINICAL INDICATION: screening Previous surgery for lump removal left breast for benign disease. COMPARISON: DMDBAV DIG MAMM-DX KONRAD W ADD VIEWS from 08/22/2015 DMDXUL DIG MAMM-DX UNI-LT from 09/14/2015 DXBI MM Dig mamm BI DX w/CAD from 10/29/2017 TECHNIQUE: Standard CC and MLO images were obtained. R2 CAD reviewed. FINDINGS: There is a markedly dense and heterogenic parenchymal pattern and the findings of lateral and symmetrical. The dominant density outer quadrant right breast seen on the previous study is less prominent and this was shown to be a benign-appearing cyst on ultrasound. This has either been possibly aspirated or decompressed spontaneously. There is some very minimal post surgical scarring upper outer quadrant left breast. There are few benign-appearing calcifications left breast along with the biopsy clip. There is a stable small round benign-appearing nodular density outer quadrant right breast. There is no suspicious lesion on the no suspicious microcalcifications. IMPRESSION: Diffusely dense parenchymal pattern with no suspicious lesions seen BI-RAD Category: FOLLOW-UP: 1YR 1 Year Follow-up (A letter has been sent to the patient regarding results of the study.) Dictated by: Dr. Benson Jiang MD 11/11/2018 10:55 Signed by: <Electronically signed by Dr. Benson Jiang MD in [place]> 11/11/2018 10:55
== END ==
PROVIDERS: PCP Emergency Medicine; Visit Provider Emergency Medicine
DX: Z12.31 Encounter for screening mammogram for malignant neoplasm of breast (principal)
CPT/HCPCS: 77067

== ENCOUNTER → 2018-11-20 12:47 | Outpatient (CLI) | payer BC, SELFPAY ==
--- NOTE | 2018-11-20 12:48 | US_ITS ---
PROCEDURE: US TRANSVAGINAL CLINICAL INDICATION: US t/v- f/u ovarian cysts COMPARISON: TRANVAG US transvaginal from 10/10/2018 FINDINGS: UTERUS: The uterus measures 6 x 4.3 x 5.5 cm. Combined endometrial thickness is 6 mm. No uterine mass. The uterus is retroverted. RIGHT OVARY: Measures 2 x 1.4 cm. Blood flow is present. LEFT OVARY: Measures 2.9 x 2 cm. Blood flow is noted. Previously noted left ovarian follicle has decreased in size previously measuring 1.5 cm now measuring 0.9 cm and with a somewhat irregular appearance suggesting rupture of the cyst. CUL-DE-SAC FLUID: No cul-de-sac fluid apparent OTHER FINDINGS: No adnexal mass. IMPRESSION: Unremarkable pelvic ultrasound Dictated by: Jose Hassan MD 11/20/2018 15:03 Electronically signed by Jose Hassan MD in [facility] 11/20/2018 15:03
== END ==
PROVIDERS: PCP Emergency Medicine; Visit Provider Nurse Practitioner Obstetrics & Gynecology
DX: N83.202 Unspecified ovarian cyst, left side (principal)
CPT/HCPCS: 76830

== ENCOUNTER 2019-07-25 14:13 | Emergency (ER) | payer BC, SELFPAY ==
[2019-07-25 14:49] VITALS: BP 148/86; PULSE 113; RESP 20; TEMP 37; O2SAT 95; BMI 25.0
--- NOTE | 2019-07-25 14:57 | HMH.EDUTC ---
[facility] [place] Clinical Impression: Superficial laceration, Need for Tdap vaccination Laceration of left leg Qualifiers: Encounter type: initial encounter Qualified Code(s): S81.812A - Laceration without foreign body, left lower leg, initial encounter Disposition: Home, Self-Care Condition on Discharge: Good Instructions: DI for Laceration Repair Steri-Strips, DI for Laceration Repair -- Simple Additional Instructions: If the site starts back oozing blood, please hold pressure on it. If you cannot get it to stop bleeding then return here. Follow up with your regular doctor. GO TO THE ER FOR ANY WORSENING SYMPTOMS OR CONCERNS Referrals: Amado Pandya MD [Primary Care Provider] - Medical Decision Making - Medical Records Medical records reviewed: No: I reviewed the patient's medical records. - Sarkis Inquiry Pt receiving controlled substance: No Vital Signs: 07/25/19 14:49 07/25/19 15:21 Temperature 98.6 F 98.6 F Temperature Source Oral Pulse Rate 113 H Pulse Rate [Right Brachial] 113 H Respiratory Rate 20 20 Blood Pressure 148/86 H Blood Pressure [Right Arm] 148/86 H Blood Pressure Mean [Right Arm] 106 Blood Pressure Source [Right Arm] Automatic Cuff Blood Pressure Position [Right Arm] Sitting 02 Sat by Pulse Oximetry 95 Oxygen Delivery Method Room Air Orders (Tests/Meds): ED MEDICATIONS Discontinued Medications Generic Name Dose Route Start Last Admin Trade Name Freq PRN Reason Stop Dose Admin Tetanus/Reduced Diphtheria/Acell Pertussis 0.5 ml 07/25/19 15:02 07/25/19 15:09 Adacel Tdap 0.5ml Syringe IM 07/25/19 15:03 0.5 ml .ONCE ONE Administration [facility] [place] - General Stated complaint: left leg need stitches Time Seen by Provider: 07/25/19 14:55 Mode of Arrival: Ambulatory Source of Information: Patient Limitations: No Limitations Description of Symptoms (Recalled from Triage Doc. by RN): PATIENT CUT HER LEFT LEG WITH UTILITY KNIFE APPROX 2 HOURS AGO AND IS HAVING DIFFICULTY STOPPING THE BLEEDING; PATIENT IS ON PLAVIS AND ASPIRIN HEENT Symptoms (Recalled from RN notes): No Resp Symptoms (Recalled from RN notes): No Skin Symptoms (Recalled from RN notes): Yes MS Symptoms (Recalled from RN notes): No Functional Status (Recalled from RN notes): WNL - History of Present Illness Provider Complaint: She was cutting something when she slipped and cut her left leg with a utility knife. She states that it is not a bad cut, but she takes aspirin and plavix so she has been unable to get it to stop bleeding. She has held pressure on it for the past 2 hours at home, but it continues to ooze a little blood. Her tetanus immunization is not up to date. - Related Data Home Medications Medication Instructions Recorded Confirmed Fluticasone Propionate [Flonase 1 spray INTRANASAL QDAY 05/28/18 08/25/18 Allergy Relief NS] albuterol sulfate 2.5 mg CONTINUOUS NEBULIZATION Q6H 06/02/18 08/25/18 PRN 30 Days ml buPROPion HCL [Wellbutrin 75mg 75 mg PO DAILY 06/13/18 08/25/18 Tablet] Previous Rx's Medication Instructions Recorded clonazepam 0.5 mg tablet 0.5 mg PO BID PRN #60 tab 06/02/18 bupropion HCl 150 mg 24 hr tablet, 150 mg PO DAILY #30 tab 08/01/18 extended release acetaminophen 650 mg 650 mg PO Q12H PRN #60 tab 08/25/18 tablet,extended release docusate sodium 100 mg capsule 100 mg PO QHS #30 cap 08/25/18 lidocaine 4 % topical patch 1 patch TOPICAL DAILY PRN #6 each 08/25/18 amlodipine 5 mg tablet 5 mg PO DAILY #30 tab 01/02/19 Sodium Chloride [[place] Nasal [place] 1 spray NS TIDP PRN #1 bottle 04/14/19 44mL] predniSONE [Deltasone 10mg tablet] 10 mg PO BID 4 Days #8 tab 04/14/19 aspirin 81 mg tablet,delayed 81 mg PO DAILY #90 tab 06/08/19 release atorvastatin 20 mg tablet 20 mg PO DAILY #90 tab 06/08/19 clopidogrel 75 mg tablet 75 mg PO DAILY #90 tab 06/08/19 Ketorolac Tromethamine [Toradol 10 mg PO Q6H 5 Days #20 tab 06/14/19 10mg t
[2019-07-25 15:21] VITALS: BP 148/86; PULSE 113; RESP 20; TEMP 37; O2SAT 95
== END 2019-07-25 15:22 | disposition home or self-care (01) ==
PROVIDERS: Emergency Provider Nurse Practitioner Family; PCP Emergency Medicine
DX: S81.812A Laceration without foreign body, left lower leg, initial encounter (principal); W26.0XXA Contact with knife, initial encounter; Y92.019 Unspecified place in single-family (private) house as the place of occurrence of the external cause; Z23 Encounter for immunization; I25.10 Atherosclerotic heart disease of native coronary artery without angina pectoris; I10 Essential (primary) hypertension; I25.2 Old myocardial infarction; F17.210 Nicotine dependence, cigarettes, uncomplicated; J44.9 Chronic obstructive pulmonary disease, unspecified; Z88.5 Allergy status to narcotic agent; Z88.8 Allergy status to other drugs, medicaments and biological substances; Z90.09 Acquired absence of other part of head and neck
CPT/HCPCS: 90471; 90715; 99201

== ENCOUNTER → 2019-09-21 12:54 | Outpatient (CLI) | payer BC, SELFPAY ==
--- NOTE | 2019-09-21 12:55 | MM_ITS ---
PROCEDURE: MM DIG MAMM DX UNILAT RT CAD Digital Breast Tomosynthesis Included CLINICAL INDICATION: breast cyst/ breast lump (right Breast) Palpable abnormality of the right breast COMPARISON: DMDXUL DIG MAMM-DX UNI-LT from 09/14/2015 DXBI MM Dig mamm BI DX w/CAD from 10/29/2017 MM DIG SCREENING MAMM BI W/CAD from 11/10/2018 US BREAST RT COMPLETE from 09/21/2019 TECHNIQUE: Standard images with 3D audelia slight compression views and right breast ultrasound FINDINGS: Dense fibroglandular tissue which decreases sensitivity of mammography. There is a new 1.6 x 1.6 cm nodule within the 9 o'clock region of the right breast. This is well-circumscribed on the tomographic images. An additional small well-circumscribed nodules present just medial to this larger nodule measuring 4 mm not significantly changed.. No malignant appearing mass or malignant-appearing microcalcification. Right breast ultrasound: There is a 7 with a small septation within the cyst.. At 9 o'clock there is a 1.7 cm hypoechoic nodule with enhanced through transmission of sound. This nodule is well-circumscribed. There is some internal debris. This is consistent with a complicated cyst.. Recommend 3 month sonographic follow-up to confirm stability. Aspiration could be performed under ultrasound guidance if clinically warranted IMPRESSION: BI-RAD Category: 3 Probably Benign Finding Short Term Follow-up FOLLOW-UP: 3M 3 Month Follow-up (A letter has been sent to the patient regarding results of the study.) Dictated by: Jose Hassan MD 09/28/2019 14:39 Electronically signed by Jose Hassan MD in [place] 09/28/2019 14:39
== END ==
PROVIDERS: PCP Emergency Medicine; Visit Provider Nurse Practitioner Obstetrics & Gynecology
DX: N60.01 Solitary cyst of right breast (principal); N63.10 Unspecified lump in the right breast, unspecified quadrant
CPT/HCPCS: 76641; 77061; 77065; G0279

== ENCOUNTER → 2019-10-22 13:26 | Outpatient (CLI) | payer BC, SELFPAY ==
--- NOTE | 2019-10-22 13:32 | CT_ITS ---
PROCEDURE: CT SOFT TISSUE NECK W CON CLINICAL HISTORY: lymph node Lymph node enlargement Tender area under right ear with pain and swelling COMPARISON: CT CT CHEST W CON from 06/14/2019 TECHNIQUE: Oral Contrast: None IV Contrast: 75 mL Optiray 350 Axial images obtained with sagittal and coronal reformats. All CT scans at the facility use one or more dose reduction, viz: automated exposure control, ma/kV adjustment per patient size (including targeted exams where dose is matched to indication, i.e. head), or iterative reconstruction technique. FINDINGS: A BB is placed on the right aspect of the neck at the area of palpable concern, pain and swelling. The nasopharynx, epiglottis, oropharynx, and hypopharynx have an unremarkable appearance. Unremarkable appearing thyroid gland. Along the inferior aspect of the right parotid gland there is a heterogeneous nodule which measures 2 cm cephalad caudad, 1.3 cm AP, and 1.7 cm transverse. This is along the inferior aspect of the parotid gland along the anterior aspect of the sternocleidomastoid. This shows some heterogeneous contrast enhancement with scattered areas of decreased attenuation. There is a peripheral zone of slight decreased density between the lesion and the parotid gland anteriorly. The nodule lies posterior to the facial vein. There are few scattered small nodes in the neck. There are mild osteoarthritic changes of the right TMJ. There are 2 noncalcified nodules in the right apex at 6 and 7 mm probably not significantly changed from 06/14/[address] IMPRESSION: There is a 2 x 1.3 x 1.7 cm heterogeneous complex nodule along the lower pole of the right submandibular gland with some internal areas of decreased attenuation. The differential diagnosis would include a parotid tumor either benign or malignant versus a complex lymph node. Ultrasound-guided fine needle aspiration may provide further evaluation if clinically desired Dictated b Jose Hassan MD 10/24/2019 11:20 Jose Hassan MD in [place] 10/24/2019 11:20
== END ==
PROVIDERS: PCP Emergency Medicine; Visit Provider Emergency Medicine
DX: R13.10 Dysphagia, unspecified (principal); I89.0 Lymphedema, not elsewhere classified
CPT/HCPCS: 70491; Q9967

== ENCOUNTER → 2019-11-05 12:37 | Outpatient (CLI) | payer BC, SELFPAY ==
--- NOTE | 2019-11-05 12:56 | US_ITS ---
PROCEDURE: US FNA OTHER CLINICAL INDICATION: RT SUBMANDIBULAR MASS COMPARISON: CT CT SOFT TISSUE NECK W CON from 10/22/2019 TECHNIQUE: Following obtaining informed consent, using aseptic technique and local anesthesia with buffered lidocaine, fine-needle aspiration was performed of the nodule of interest using sonographic guidance. Four passes were made into the nodule with a 21-gauge needle. To the specimens was sent in cytology and 2 sent in RPMI solution. Core biopsies were not performed as the patient had not been without Plavix for an adequate period of time FINDINGS: Pre biopsy ultrasound once again confirms the complex hypoechoic nodule inferior to the parotid gland which appears to represent a prominent lymph node. CYTOLOGY: Negative for malignant cells. Please see cytology report IMPRESSION: Uneventful ultrasound-guided FNA of the right submandibular mass which was negative for malignant cells. Please see cytology report. The patient tolerated the procedure well without evidence of immediate complications and left the ultrasound suite in stable condition. Dictated by: Jose Hassan MD 11/16/2019 09:43 Jose Hassan MD in [place] 11/16/2019 09:43
[2019-11-05 14:19] LABS: MANUAL DIFFERENTIAL MANUAL DIFFERENTIAL (MANUAL DIFF)
[2019-11-05 14:39] LABS: Basophils # 0.1 K/mm3 (0-0.2); Basophils % 0.9 % (0.1-2.0); Eosinophils # 0.3 K/mm3 (0.0-0.4); Eosinophils % 3.6 % (0.1-12.0); Hematocrit 36.7 % (37.0-47.0); Lymphocytes # 2.5 K/mm3 (0.7-4.5); Lymphocytes % 27.7 % (10-50); Mean Corpuscular Hemoglobin 21.7 pg (27.0-31.2); Mean Corpuscular Volume 72.3 fl (81-99); Mean Platelet Volume 6.9 fl (7.4-10.4); Monocytes # 0.5 K/mm3 (0.1-1.0); Neutrophils # 5.5 K/mm3 (1.8-7.8); Neutrophils % 61.8 % (37.0-80.0); Platelet Count 456 K/mm3 (142-424); Red Blood Count 5.08 M/mm3 (4.20-5.40); Red Cell Distribution Width 17.5 % (11.5-17.5); White Blood Count 8.8 K/mm3 (4.8-10.8)
[2019-11-05 15:19] LABS: Anisocytosis 2+; Hypochromasia 2+; Lymphocytes % 34 % (10-50); Microcytosis 1+; Neutrophils % 66 % (42-76); Platelet Estimate Slight Increase; Total Cells Counted 100
[2019-11-05 16:25] LABS: Chloride 104 mmol/L (98-107); Potassium 4.1 mmoL/L (3.5-5.1); Sodium 138 mmol/L (136-145)
[2019-11-05 16:28] LABS: Anion Gap 10.1 mEq/L (5-15); Blood Urea Nitrogen 4 mg/dl (7-17); Calcium 9.5 mg/dl (8.4-10.2); Carbon Dioxide 28 mmol/L (22.0-30.0); Estimated Glomerular Filt Rate 106 ml/min (>60); GFR (African American) 129 ML/MIN (>60); Glucose 91 mg/dl (74-100)
== END ==
PROVIDERS: PCP Emergency Medicine; Visit Provider Otolaryngology
DX: K11.8 Other diseases of salivary glands (principal)
CPT/HCPCS: 10005; 36415; 76942; 80048; 85007; 85014; 85018; 85048; 85049

== ENCOUNTER → 2019-11-05 14:16 | Outpatient (CLI) | payer BC, SELFPAY | PROVIDERS: Visit Provider Otolaryngology | DX: Z01.818 Encounter for other preprocedural examination (principal) | CPT/HCPCS: 36415; 80048; 85007; 85014; 85018; 85048; 85049 ==

== ENCOUNTER 2020-02-18 10:55 | Emergency (ER) | payer BC, SELFPAY ==
[2020-02-18 10:56] VITALS: BP 146/95; PULSE 109; RESP 19; O2SAT 97; BMI 19.3
--- NOTE | 2020-02-18 11:05 | XR_ITS ---
PROCEDURE: XR RIBS LT 2V CLINICAL INDICATION: PAIN FROM COUGHING COMPARISON: CR XR RIBS LT 2V from 06/13/[address] CHEST W CON from 06/14/2019 FINDINGS: There is minimal contour deformity involving the left 4th rib posteriorly and to lesser extent the left 3rd rib consistent with nondisplaced fractures. Please correlate as the patient's area of pain tenderness as these could be chronic. There are old fractures of the right 7th rib. Frontal view of the chest shows no evidence of pneumothorax lobar consolidation or collapse with unremarkable cardiovascular structures. IMPRESSION: Nondisplaced left 3rd 4th rib fractures posteriorly age indeterminate with an old right 7th rib fracture. Dictated by: Jose Hassan MD 02/18/2020 11:37 Jose Hassan MD in [place] 02/18/2020 11:37
[2020-02-18 11:08] VITALS: BP 146/90; PULSE 109; RESP 19; TEMP 36.8; O2SAT 97; BMI 19.1
--- NOTE | 2020-02-18 11:30 | HMH.EDUTC ---
[facility] [place] Disposition Clinical Impression: Rib pain on left side Disposition: Home, Self-Care Condition on Discharge: Good Instructions: Rib Fracture Additional Instructions: *Ibuprofen erinn 6 hours with meal as needed for pain/inflammation *Remember you had a Toradol shot in the clinic today, which is similar to Motrin *Not additional anti-inflammatory like motrin, aleve, advil with the above amount of ibuprofen. You can still take Tylenol every 4 hours as needed if you need something else for pain *Ice 20 minutes every 2 hours for the first 48 hours after the initial injury followed by moist heat every 20 minutes 3-4 times a day to affected area Over the counter salon pa patches to area may help with pain and discomfort *Keep this area active, no movement leads to more stiffness, However take it easy and avoid heavy lifting pushing or pulling *Follow up with you family doctor if no improvement for further treatment Referrals: Amado Pandya MD [Primary Care Provider] - As needed Time of Disposition: 11:53 Medical Decision Making - Sarkis Inquiry Pt receiving controlled substance: No Sarksi was queried for this patient: No Vital Signs: 02/18/20 10:56 02/18/20 11:08 Temperature 98.2 F Temperature Source Oral Pulse Rate [Left Radial] 109 H 109 H Respiratory Rate 19 19 Blood Pressure [Right Arm] 146/95 H 146/90 H Blood Pressure Mean [Right Arm] 112 108 Blood Pressure Source [Right Arm] Automatic Cuff Automatic Cuff Blood Pressure Position [Right Arm] Sitting Sitting 02 Sat by Pulse Oximetry 97 97 Oxygen Delivery Method Room Air Room Air - Radiology Data #1 Image(s): Chest (left ribs) IMPRESSION: Nondisplaced left 3rd 4th rib fractures posteriorly age indeterminate with an old right 7th rib fracture. [facility] [place] HPI - General Stated complaint: Left side pain Time Seen by Provider: 02/18/20 11:30 Mode of Arrival: Ambulatory Source of Information: Patient Limitations: No Limitations Description of Symptoms (Recalled from Triage Doc. by RN): pt stated i think i cracked a rib coughing pt complains of left sided rib pain afte having a coughing fit yesterday. HEENT Symptoms (Recalled from RN notes): No Resp Symptoms (Recalled from RN notes): No Skin Symptoms (Recalled from RN notes): No MS Symptoms (Recalled from RN notes): Yes (thinks she may have cracked a rib) Functional Status (Recalled from RN notes): na - History of Present Illness Provider Complaint: Patient state that she was coughing earlier and felt like she broke a rib States that she felt a pop and has been having pain in her left side ever since Denies SOA - Related Data Home Medications Medication Instructions Recorded Confirmed Fluticasone Propionate [Flonase 1 spray INTRANASAL QDAY 05/28/18 11/12/19 Allergy Relief NS] albuterol sulfate 2.5 mg CONTINUOUS NEBULIZATION Q6H 06/02/18 11/12/19 PRN 30 Days ml Previous Rx's Medication Instructions Recorded amlodipine 5 mg tablet 5 mg PO DAILY #30 tab 01/02/19 clopidogrel 75 mg tablet 75 mg PO DAILY #90 tab 06/08/19 budesonide-formoterol HFA 160 2 puff INHALATION Q12H #10.2 g 09/28/19 mcg-4.5 mcg/actuation aerosol inhaler atorvastatin 20 mg tablet 20 mg PO DAILY #30 tab 10/27/19 cephalexin 500 mg capsule 500 mg PO TID 10 Days #30 cap 11/12/19 methylprednisolone 4 mg tablets in 4 mg PO PER PKG DIR 10 Days #10 tab 11/12/19 a dose pack loratadine 10 mg tablet 10 mg PO DAILY #90 tab 11/16/19 aspirin 81 mg tablet,delayed 81 mg PO DAILY #90 tab 12/10/19 release tiotropium bromide 2.5 See Rx Instructions .ROUTE 02/09/20 mcg/actuation mist for inhalation .COMPLEX #4 unspecified Allergies Allergy/AdvReac Type Severity Reaction Status Date / Time codeine [CODEINE] Allergy Unknown Verified 02/18/20 11:10 guaifenesin [GUAIFENESIN] Allergy Unknown Verified 02/18/20 11:10 hydrocodone [HYDROCODONE] Allergy Unknown Verified 02/18/20 11:10 terbutaline [TERBUTALINE] All
[2020-02-18 12:03] VITALS: BP 142/78; PULSE 68; RESP 16; TEMP 36.9; O2SAT 98
== END 2020-02-18 12:03 | disposition home or self-care (01) ==
PROVIDERS: Emergency Provider Emergency Medicine; PCP Emergency Medicine
DX: S22.42XA Multiple fractures of ribs, left side, initial encounter for closed fracture (principal); R05 Cough; J44.9 Chronic obstructive pulmonary disease, unspecified; I25.10 Atherosclerotic heart disease of native coronary artery without angina pectoris; F17.210 Nicotine dependence, cigarettes, uncomplicated; Z79.899 Other long term (current) drug therapy; I10 Essential (primary) hypertension; I25.2 Old myocardial infarction; Z88.5 Allergy status to narcotic agent; Z88.8 Allergy status to other drugs, medicaments and biological substances
CPT/HCPCS: 71100; 99201

== ENCOUNTER 2020-04-25 11:05 | Observation (INO) | payer BC, SELFPAY ==
[2020-04-25] VITALS (19 sets, daily range): BP systolic 124–165; BP diastolic 53–90; PULSE 67–107; RESP 13–24; TEMP 36.5–36.6; O2SAT 91–98; BMI 22.6; BMI 19.9
--- NOTE | 2020-04-25 11:05 | ECG_ITS ---
APPROVED REPORT Exam: Resting ECG HR:88 bpm ECG Measurements Heart Rate 88 AXES MS 158 P 61 QRSd 70 QRS 34 QT 362 T 58 QTc 438 Conclusion Normal sinus rhythm Normal ECG Electronically signed by : Mark Anthony Hollins, 04/26/2020 07:11:05
--- NOTE | 2020-04-25 11:08 | XR_ITS ---
PROCEDURE: XR CHEST PORTABLE CLINICAL HISTORY: chest pain Right-sided chest pain COMPARISON: CR CXR2V XR chest 2V from 07/09/2018 CR XR RIBS LT MIN 3V W CXR1V from 04/14/2019 CR XR CHEST 2V from 06/13/[address] CHEST W CON from 06/14/2019 FINDINGS: The cardiomediastinal silhouette and pulmonary vascularity are within normal limits. The lungs are clear without infiltrates, suspicious nodules, or pleural effusions. There are old bilateral rib fractures. IMPRESSION: No acute findings. Dictated by: Jose Hassan MD 04/25/2020 12:15 Jose Hassan MD in [place] 04/25/2020 12:15
--- NOTE | 2020-04-25 11:08 | HMH.EDGENADL ---
ED Disposition Clinical Impression: Chest pain Qualifiers: Chest pain type: other chest pain Qualified Code(s): R07.89 - Other chest pain Disposition: Admitted as Observation Condition on Discharge: Fair Referrals: Amado Pandya MD [Primary Care Provider] - - Critical Care Critical Care Time: No Attestation: On , the high probability of a clinically significant, sudden or life threatening deterioration of the following system(s) required my full and direct attention, intervention and personal management. The time I documented below is in addition to time spent performing reported procedures but includes the following listed in this critical care notation. Medical Decision Making - Medical Records Medical records reviewed: Yes: I reviewed the patient's medical records. - Sarkis Inquiry Pt receiving controlled substance: No Vital Signs: 04/25/20 11:06 04/25/20 11:36 04/25/20 12:31 Temperature 98 F Temperature Source Oral Pulse Rate [Radial] 84 86 93 H Respiratory Rate 13 17 16 Blood Pressure [Right Arm] 133/78 137/73 140/80 Blood Pressure Mean [Right Arm] 96 94 100 Blood Pressure Source [Right Arm] Automatic Cuff Automatic Cuff Automatic Cuff Blood Pressure Position [Right Arm] Sitting Sitting 02 Sat by Pulse Oximetry 98 97 95 Oxygen Delivery Method Room Air Room Air Room Air - Lab Data Lab Results 04/25/20 11:06: WBC 7.8, RBC 4.95, Hgb 9.3 L, Hct 33.4 L, MCV 67.6 L, MCH 18.8 L, MCHC 27.8 L, RDW 18.5 H, Plt Count 536 H, MPV 7.2 L, Neut % (Auto) 63.6, Lymph % (Auto) 25.6, [place] % (Auto) 7.0, Eos % (Auto) 3.2, Baso % (Auto) 0.6, Neut # (Auto) 5.0, Lymph # (Auto) 2.0, [place] # (Auto) 0.6, Eos # (Auto) 0.3, Baso # (Auto) 0.1 04/25/20 11:06: Sodium 137, Potassium 4.3, Chloride 104, Carbon Dioxide 30, Anion Gap 7.3, BUN 9, Creatinine 0.60, Estimated Creat Clear 112, Estimated GFR 106, Est GFR ( Amer) 128, Glucose 111 H, Calcium 9.7, Total Bilirubin 0.4, AST 29, ALT 20, Alkaline Phosphatase 69, Troponin I < 0.01, Total Protein 8.1, Albumin 4.5, Globulin 3.6 H, Albumin/Globulin Ratio 1.3 04/25/20 14:18: Troponin I < 0.01 Result diagrams: 04/25/20 11:06 04/25/20 11:06 Orders (Tests/Meds): ED MEDICATIONS Discontinued Medications Generic Name Dose Route Start Last Admin Trade Name Colby PRN Reason Stop Dose Admin Aspirin 324 mg 04/25/20 11:15 04/25/20 11:16 Aspirin 81mg Chewable Tablet PO 04/25/20 11:16 324 mg ONCE ONE Administration ORDERS Category Date Time Status Troponin I Q3H Lab 04/25/20 17:15 Ordered Medical Decision Narrative: Patient is a 50-year-old female presenting with chest pain. EKG interpreted immediately upon arrival: EKG demonstrates sinus rhythm at a rate of 88 bpm; no acute ST elevation/depression; [place] normal; no biphasic T waves in the anterior leads EKG nonischemic. Patient mildly hypertensive and tachycardic, otherwise VSS. Patient still given chewable aspirin as ACS is on the differential. No signs of Wellen's syndrome on EKG. Other differential diagnoses do include hypertensive emergency versus diffuse esophageal spasm versus costochondritis versus GI related chest pain versus infectious process. Chest x-ray will be obtained to ensure no acute cardiopulmonary abnormality. Basic lab work will also be obtained to ensure no hematologic or metabolic derangement. Patient will be kept on cardiac monitors and closely monitored throughout emergency department stay. On review of her chart, she does have a stent to her left common iliac artery, left external iliac artery, right common iliac artery. He does have significant peripheral artery disease and continues to smoke 2+ packs per day. Second set of cardiac enzymes still within normal limits. At this time though based on patient's risk factors I did reach out to patient's provider, Dr. Pandya. After careful discussion we agree patient should be admitted for chest pain rule out with possible pr
[2020-04-25 11:16] LABS: Basophils # 0.1 K/mm3 (0-0.2); Basophils % 0.6 % (0.1-2.0); Eosinophils # 0.3 K/mm3 (0.0-0.4); Eosinophils % 3.2 % (0.1-12.0); Hematocrit 33.4 % (37.0-47.0); Hemoglobin 9.3 g/dL (12.2-16.2); Lymphocytes % 25.6 % (10-50); Mean Corpuscular HGB Conc 27.8 g/dL (31.8-35.4); Mean Corpuscular Hemoglobin 18.8 pg (27.0-31.2); Mean Corpuscular Volume 67.6 fl (81-99); Mean Platelet Volume 7.2 fl (7.4-10.4); Monocytes # 0.6 K/mm3 (0.1-1.0); Neutrophils % 63.6 % (37.0-80.0); Platelet Count 536 K/mm3 (142-424); Red Blood Count 4.95 M/mm3 (4.20-5.40); Red Cell Distribution Width 18.5 % (11.5-17.5); White Blood Count 7.8 K/mm3 (4.8-10.8)
[2020-04-25 11:18] LABS: Chloride 104 mmol/L (98-107); Potassium 4.3 mmoL/L (3.5-5.1); Sodium 137 mmol/L (136-145)
[2020-04-25 11:21] LABS: Alanine Aminotransferase 20 U/L (12-78); Albumin Level 4.5 g/dl (3.5-5.0); Albumin/Globulin Ratio 1.3 (1.1-1.8); Alkaline Phosphatase 69 U/L (38-126); Anion Gap 7.3 mEq/L (5-15); Aspartate Amino Transferase 29 U/L (14-36); Bilirubin,Total 0.4 mg/dl (0.2-1.3); Blood Urea Nitrogen 9 mg/dl (7-17); Carbon Dioxide 30 mmol/L (22.0-30.0); Creatinine Clearance Estimated 112 mL/min (50-200); Estimated Glomerular Filt Rate 106 ml/min (>60); GFR (African American) 128 ML/MIN (>60); Globulin 3.6 g/dL (1.3-3.2); Total Protein,Serum 8.1 g/dl (6.3-8.2)
[2020-04-25 11:22] LABS: Calcium 9.7 mg/dl (8.4-10.2); Glucose 111 mg/dl (74-100)
[2020-04-25 11:39] LABS: Troponin I < 0.01 ng/ml (0.00-0.034)
--- NOTE | 2020-04-25 11:49 | PC.NURSE ---
Rad at bedside
--- NOTE | 2020-04-25 14:00 | PC.NURSE ---
PT UPDATED ON PLAN OF CARE
[2020-04-25 14:47] LABS: Troponin I < 0.01 ng/ml (0.00-0.034)
--- NOTE | 2020-04-25 15:00 | PC.NURSE ---
PT UPDATED ON PLAN OF CARE
--- NOTE | 2020-04-25 15:29 | PC.NURSE ---
speaking with Dr. Pandya
--- NOTE | 2020-04-25 16:13 | PC.NURSE ---
Echo at bedside
--- NOTE | 2020-04-25 16:31 | PC.NURSE ---
CALLED FLOOR INFORMED PT IS READY FOR ADMISSION
--- NOTE | 2020-04-25 17:10 | PC.NURSE ---
patient came to floor
--- NOTE | 2020-04-25 17:22 | PC.NURSE ---
REPORT TO BALJEET BLUE
[2020-04-25 18:23] LABS: Troponin I < 0.01 ng/ml (0.00-0.034)
--- NOTE | 2020-04-25 20:23 | PC.NURSE ---
No acute changes since admission to floor. Pt did have some wheezing, and request inhaler, called Dr. Wodoard and requested duonebs, he ordered qid duonebs.
[2020-04-26] VITALS: BP 148/90; PULSE 70; PULSE 91; RESP 17; TEMP 36.6; O2SAT 95
--- NOTE | 2020-04-26 | CA_ITS ---
APPROVED REPORT Exam: Exercise Treadmill Technologist: Anne Duncan Ht: 5 ft 6 in Wt: 123 lbs BSA: 1.63 m2 HR: 84 bpm BP: 108/45 mmHg Indications: Chest pain Medical History Medications: Amlodipine,,,,, Spiriva,,,,, Irbesartan,,,,, Metoprolol,,,,, Asa,,,,, Atorvastatin,,,,, CloPIdogrel,,,,, LoraTADINE,,,,, Ventolin,,,,, NeBULIZER,,,,, Budesonide-Formoterol,,,,, Stress Test Details Test: Karlo HR Resting HR: 100 bpm Max Heart Rate (APMHR): 170 bpm Max HR Achieved: 146 bpm Target HR (85% APMHR): 144 bpm % of APMHR: 85 Recovery HR: 104 bpm BP Resting BP: 108.0/45.0 mmHg Max BP: 192.0/70.0 mmHg Recovery BP: 120.0/74.0 mmHg ECG Resting ECG: Normal sinus rhythm, cannot rule out old septal AR, NS ST abnormalities Clinical Exercise duration: 06:30 min Highest Stage Achieved: Exercise capacity: 4.6 METs Stress ECG Conclusion Patient exercised 6:30 on Stage I of Karlo Protocol. Test stopped due to shortness of air, leg pain. Symptoms: No chest pain. Arrhythmias/Ectopy: None ST-T Changes: Normal ST response to exercise. Conclusion: Normal GXT. Myoview images reported separately.Poor exercise capacity. Test Summary REST . . . . . . . Standing REST 02:42 0.0 0.0 100 . 108/ 45 . . Stage 1 01:00 10.0 1.7 120 . . . . Stage 1 02:00 10.0 1.7 139 . . . . Stage 1 . . . . . . . Stage held Stage 1 03:00 10.0 1.7 140 . 192/ 70 . . Stage 1 04:00 10.0 1.7 140 . 192/ 70 . . Stage 1 05:00 10.0 1.7 144 . 190/ 80 . . Stage 1 . . . . . . . Myoview Injected Stage 1 06:00 10.0 1.7 145 . 190/ 80 . . Stage 1 . . . . . . . Stage resumed Stage 1 06:30 10.0 1.7 145 . 190/ 80 . Stop exercise at 06:30 RECOVERY 01:00 0.0 0.0 135 . . . . RECOVERY 02:00 0.0 0.0 112 . 129/ 71 . . RECOVERY 03:00 0.0 0.0 103 . 124/ 72 . . RECOVERY 04:00 0.0 0.0 91 . 124/ 72 . . RECOVERY 05:00 0.0 0.0 104 . 120/ 74 . . RECOVERY 05:45 0.0 0.0 113 . 120/ 74 . . Electronically signed by : Mynor Dumont, 04/26/2020 21:20:05
[2020-04-26 04:00] VITALS: BP 136/62; PULSE 80; PULSE 84; RESP 17; TEMP 36.8; O2SAT 96
--- NOTE | 2020-04-26 05:01 | PC.NURSE ---
Patient resting in bed denies n/v and pain. HR regular normal sinus rhythm throughout shift. Call light in reach, bed at lowest level for safety.
[2020-04-26 05:22] VITALS: BMI 19.8
[2020-04-26 05:47] VITALS: PULSE 88; PULSE 90
[2020-04-26 05:51] VITALS: O2SAT 91
--- NOTE | 2020-04-26 07:43 | P.CONPHA_ITS ---
[facility] Pharmacy VTE Monitoring - Patient Demographics Admission date: 04/26/20 Report Date: 04/26/20 Time: 07:43 Allergies/Adverse Reactions: Patient Allergies codeine [CODEINE] Allergy (Unknown, Verified 02/18/20 11:10) guaifenesin [GUAIFENESIN] Allergy (Unknown, Verified 02/18/20 11:10) hydrocodone [HYDROCODONE] Allergy (Unknown, Verified 02/18/20 11:10) terbutaline [TERBUTALINE] Allergy (Unknown, Verified 02/18/20 11:10) Height: 1.68 m Weight: 56.019 kg Patient Problems: Current Active Problems Chest pain (Acute) - VTE Risk Labs: VTE Related Lab Results Hgb 9.3 g/dL (12.2-16.2) L 04/25/20 11:06 Hct 33.4 % (37.0-47.0) L 04/25/20 11:06 Plt Count 536 K/mm3 (142-424) H 04/25/20 11:06 BUN 9 mg/dl (7-17) 04/25/20 11:06 Creatinine 0.60 mg/dl (0.52-1.04) 04/25/20 11:06 Estimated Creat Clear 112 mL/min (50-200) 04/25/20 11:06 Clinical Trial Participant: No - Prophylaxis VTE Prophylaxis Ordered?: Yes Types of VTE Prophylaxis: TEDS Knee High
[2020-04-26 08:00] VITALS: BP 142/81; PULSE 90; PULSE 94; RESP 19; TEMP 36.6; O2SAT 94
--- NOTE | 2020-04-26 08:00 | CA_ITS ---
APPROVED REPORT EXAM: Comprehensive 2D, Doppler, and color-flow Echocardiogram Hose Maker: Raegan Morgan RCS, RVS Ht: 5 ft 6 in Wt: 123lbs BSA: 1.63 BP: 140/80 mmHg Indications: CP, COPD, 3pk xday smoker, Hemoglobin 9.3g, PAD-bilat iliac stents Echo Enhancing Agent Comments: Low parasternal windows 2D Dimensions LVOT 1.87 cm (M/F) 1.5-2.5 M-Mode Dimensions RVDd 2.41 cm (0.9-2.6) LA Diam 2.52 cm (1.9-4.0) LVDd 3.78 cm (3.5-5.7) Ao Diam 3.18 cm (2.0-3.7) LVDs 2.53 cm (3.5-5.7) IVSd 0.84 cm (0.6-1.1) PWd 0.94 cm (0.6-1.1) EF (Teich) 67.50% EPSs 0.47 cm FS 37.10% EDV (Teich) 70.80 mL ESV (Teich) 23.00 mL LV Diastology E Decel Time 263.00 (160-240 msec) E/A Ratio 1.12 MED E' 9.10 (< 7 cm/sec) MED A' 12.10 cm/s E'/MED E' Ratio 10.00 (>14) LAT E' 10.80 (<10 cm/sec) LAT A' 12.10 cm/s E/LAT E' Ratio 8.43 (>14) Aortic Valve AO Peak GR. 6.20 mmHg Mitral Valve MV A Velocity 81.00 (40-130 cm/s) E/A Ratio 1.12 MV Decel. Time 263.00 (160-240 ms) Pulmonary Valve PV Peak Velocity 72.00 (50-150 cm/s) Tricuspid Valve TR P. Velocity 165.00 cm/s RAP Estimate 10.00 mmHg RVSP 20.80 mmHg Left Ventricle Left atrium is mildly enlarged, left ventricle is normal size, mild concentric left ventricular hypertrophy, visually estimated ejection fraction 55% with no regional wall motion abnormality, diastolic parameters are inconclusive. Right Ventricle Right atrium and right ventricle are normal size and contractility. Aortic Valve Aortic valve is minimally thickened and fibrosed, there is no aortic stenosis or aortic insufficiency. Mitral Valve Mitral valve is grossly normal, there is mild mitral regurgitation. Tricuspid Valve Tricuspid valve is grossly normal, there is mild tricuspid regurgitation, tricuspid regurgitation jet velocity is inadequate for calculation of the right ventricular systolic pressure. Pulmonic Valve Pulmonic valve is poorly visualized. Great Vessels Aortic root is normal size. Pericardium No significant pericardial effusion noted. Conclusion 1. Mildly enlarged left atrium, normal left ventricular size, mild concentric left ventricular hypertrophy, visually estimated ejection fraction 55% with no regional wall motion abnormality, diastolic parameters are inconclusive. 2. Mild mitral and tricuspid regurgitation. 3. No significant pericardial effusion noted. Electronically signed by : Mynor Dumont, 04/26/2020 20:28:26
--- NOTE | 2020-04-26 08:33 | NM_ITS ---
APPROVED REPORT Exam: Nuclear Stress Test Indication: HTN, TOB USE, FM HX, C.P., SOB, PALPITATIONS, FATIGUE Patient Location: Inpatient Stress Tech: Charity Heller MS Tech:Maira D Seals, ARRT, RT (R)(N) Ht: 5 ft 6 in Wt: 123 lbs Bra Size: B HR: 84 bpm BP: 108/45 mmHg BSA: 1.63 m2 BMI: 19.8 History: HTN, TOB USE, FM HX, C.P., SOB, PALPITATIONS, FATIGUE Procedure: Patient exercised on Karlo protocol 6:30 minutes and sec, resting heart rate 84 bpm, resting blood pressure 108/45 mmHg, with exercise maximum heart rate achived was 146 bpm which is 86 % of the maximum predicted heart rate and blood pressure was 197/70 mmHg. Test was stopped due to SOA & LEG PAIN. Patient denied any complaint of chest pain. Patient has exercise capacity, achieved 4.6 METs of workload on treadmill, the blood pressure response to exercise was . Cardiac Stress and Resting SPECT Images: Cardiac Stress and Resting SPECT images were obtained using technetium 99m Myoview 29.7 mCi stress and 10.14 mCi at rest. EF is normal at 59%. No wall motion abnormalities. No fixed or reversible defects Conclusion: Normal EF No evidence of ischemia or infarction Electronically signed by : Jose Hassan MD 04/26/2020 15:37:10
--- NOTE | 2020-04-26 08:40 | HMH.CNCARD ---
History of Present Illness Consult date: 04/26/20 Requesting physician: Amado Pandya Consult reason: chest pain, shortness of breath Chief complaint: chest pain Additional Medical History:: 1. Atypical chest pain (04/26/20) a. Negative troponins 2. History of HI (2017) 3. Essential hypertension 4. Raynaud's disease 5. Chronic obstructive pulmonary disease 6. Peripheral artery disease a. Stents to right and left common iliac (2019) 7. Hyperlipidemia 8. Anxiety History of present illness: 50-year-old female admitted to [facility] with atypical chest pain. Patient states while at home, she started becoming anxious and started developing right chest wall pain. Patient stated the chest pain radiated up into the right side of the neck. Patient stated once arrival to the ED and was given 4 baby aspirins, chest pain resolved. Patient denies chest pain, pressure or tightness. Patient complains of shortness of breath. Patient stated this is not new. Patient has history of chronic obstructive pulmonary disease. Patient does smoke 2 to 3 packs/day. Patient denies palpitations or dizziness. No lower extremity swelling noted. Patient does have history of Raynaud's disease. Patient denies fever, nausea or vomiting. Patient states she does have chronic back pain. States she smokes cannabis every day. Patient does have history of peripheral artery disease. Patient did undergo stenting to the right common iliac artery and the right common iliac artery and the left external iliac in 2019. Patient denies any claudication signs and symptoms. Patient stated history of HI few years ago. Patient did not undergo left heart catheterization at that time. Initial work-up was performed in the ED. EKG revealed normal sinus rhythm with a heart rate of 88 bpm. Serial cardiac enzymes were negative. Chest x-ray revealed no acute finding. Labs revealed hemoglobin 9.3. Baseline hemoglobin is around 10.5. Discussed plan of care with Dr. Lynn. Obtained echocardiogram to assess LV function and valve status. Stress Myoview ordered by PCP. Will start aspirin 81 mg daily, Irbesartan 75mg daily, Metoprolol tartate 50mg daily and Lipitor 20 mg at night. Patient has not been on any of her medications for a few months. These medications will be appropriate for her diastolic dysfunction and peripheral artery disease. Thank you for letting cardiology participate in the care of this patient. [facility] History I have reviewed the patient's past medical history: Yes Medical History: Reports:: Chronic Obstructive Pulmonary Disease (COPD), Coronary Artery Disease, Hypertension, Myocardial Infarction Denies:: Cancer, Diabetes Mellitus Type 1, Diabetes Mellitus Type 2, Internal Pacemaker, MRSA *Have you ever received a pneumonia vaccine?: No *Have you received a flu vaccine this season?: No Other Medical History: Reports: Anemia Laterality Cases: Bilateral: Tonsillectomy Other Surgeries: Yes: Appendectomy, Dilation and Curettage, Tubal Ligation. No: Pacemaker Amputation: No Fractures: Yes (rt wrist,pelvis, tailbone) - *Social History Smoking Status: Current every day smoker Tobacco Type: cigarettes # Packs/Day (cigarettes): 2 #Yrs smoked (if former smoker): 35 Alcohol Intake: former Alcohol Intake Frequency:: holidays/special occasions only Substance Use Type: marijuana *Occupational Status:: other Housing: apartment Household Members: children *Travel in the last 8 weeks: None Family Hx:: Diabetes, Hypertension, Kidney Disease, Cancer Meds Home Medications Medication Instructions Recorded Confirmed Type albuterol sulfate 2.5 mg IH Q6H PRN 30 Days ml 06/02/18 04/26/20 History amlodipine 5 mg tablet 5 mg PO DAILY #30 tab 01/02/19 04/25/20 Rx Aspirin [Low Dose Aspirin EC] 81 mg PO DAILY 04/25/20 04/25/20 History Budesonide/Formoterol Fumarate 2 puffs IH BID 04/25/20 04/26/20 History [Budesonide-Formoterol 160-4.5] Jesusita
[2020-04-26 13:45] LABS: Iron 15 ug/dL (37-170)
[2020-04-26 13:54] LABS: Total Iron Binding Capacity 388 ug/dL (265-497)
[2020-04-26 14:23] LABS: Ferritin 5.45 ng/ml (6.24-137)
--- NOTE | 2020-04-26 15:55 | HMH.HPDC ---
General - General Admission date:: 04/25/20 Discharge date: 04/26/20 *Admission Date: 04/26/20 *Chief complaint: Chest Pain *History of present illness: 50-year-old female patient presented to the emergency department with complaints of right-sided chest pain. She reports she was sitting at home sewing and she had right-sided chest pain that would radiate up into her neck and through to her right back. She does report sweating and shortness of breath during the episode. Upon arrival in the emergency department she was given 4 baby aspirin and chest pain resolved. She does denies chest pain or shortness of breath at the present. She reports she does have a history of COPD, smokes 2 to 3 packs of cigarettes per day and she does have a history of peripheral artery disease. She has had stenting to her right common iliac artery and left external iliac in 2019. She denies any leg pain at present and she did have an NC in the past with no cardiac catheterization at that time. In the emergency department CBC revealed white blood cell count 7.8, decreased H/H of 9.3/33.4, MCV low at 67.6 and MCH low at 18.8 Chemistries revealed electrolytes within normal, iron at 15, iron saturation at 3.9, ferritin 5.5 Troponins were negative x3 04/25/20 CXR: FINDINGS: The cardiomediastinal silhouette and pulmonary vascularity are within normal limits. The lungs are clear without infiltrates, suspicious nodules, or pleural effusions. There are old bilateral rib fractures. IMPRESSION: No acute findings. Dictated by: JUAN C Hassan History I have reviewed the patient's past medical history: Yes Medical History: Reports:: Chronic Obstructive Pulmonary Disease (COPD), Coronary Artery Disease, Hypertension, Myocardial Infarction Denies:: Cancer, Diabetes Mellitus Type 1, Diabetes Mellitus Type 2, Internal Pacemaker, MRSA *Have you ever received a pneumonia vaccine?: No *Have you received a flu vaccine this season?: No Other Medical History: Reports: Anemia Laterality Cases: Bilateral: Tonsillectomy Other Surgeries: Yes: Appendectomy, Dilation and Curettage, Tubal Ligation. No: Pacemaker Amputation: No Fractures: Yes (rt wrist,pelvis, tailbone) - *Social History Smoking Status: Current every day smoker Tobacco Type: cigarettes # Packs/Day (cigarettes): 2 #Yrs smoked (if former smoker): 35 Alcohol Intake: former Alcohol Intake Frequency:: holidays/special occasions only Substance Use Type: marijuana *Occupational Status:: other Housing: apartment Household Members: children *Travel in the last 8 weeks: None Family Hx:: Diabetes, Hypertension, Kidney Disease, Cancer Review of Systems - Review of Systems Review of systems:: pertinent systems reviewed and negative unless documented below - Constitutional Denies anorexia, Denies chills - Eyes Denies blind spots, Denies change in vision - ENT Denies abnormal hearing, Denies facial pain - *Cardiovascular Reports chest pain, Reports chest pain at rest, Reports shortness of breath - *Respiratory Reports shortness of breath, Denies chest congestion, Denies pain on inspiration - *Gastrointestinal Denies abdominal pain, Denies change in stools - *Musculoskeletal Denies abnormal walking, Denies body aches - Integumentary/Breasts Denies acne, Denies change in hair - *Neurologic Denies abnormal walking, Denies abnormal speech - Psychiatric Denies abnormal sleep pattern, Denies behavioral changes - Endocrine Denies cold intolerance, Denies heat intolerance - Hematologic/Lymphatic Denies easy bleeding, Denies easy bruising - Allergic/Immunologic Denies GI upset with certain foods, Denies tongue swelling Exam Vital signs and Labs for Last 24 Hours: Temp Pulse Resp BP Pulse Ox 97.9 F 94 H 19 142/81 H 94 L 04/26/20 08:00 04/26/20 08:00 04/26/20 08:00 04/26/20 08:00 04/26/20 08:00 Laboratory Results - last 24 hr 04/25/20 11:06: Iron 15 L,
[2020-04-26 16:00] VITALS: BP 139/80; PULSE 80; PULSE 93; RESP 18; TEMP 36.9; O2SAT 98
--- NOTE | 2020-04-26 20:04 | PC.NURSE ---
THIS RN PROVIDED D/C INSTRUCTIONS, PATIENT VERBALIZED AN UNDERSTANDING. NO CONCERNS AT D/C
== END 2020-04-26 17:05 | disposition home or self-care (01) ==
LOC: ER 15:40 → 2ND 16:04
PROVIDERS: Nurse Practitioner Family; Admitting Provider Emergency Medicine; Emergency Provider Emergency Medicine; PCP Emergency Medicine; Visit Provider Emergency Medicine
DX: R07.89 Other chest pain (principal); I25.2 Old myocardial infarction; I25.10 Atherosclerotic heart disease of native coronary artery without angina pectoris; I10 Essential (primary) hypertension; J44.9 Chronic obstructive pulmonary disease, unspecified; Z95.820 Peripheral vascular angioplasty status with implants and grafts; I70.209 Unspecified atherosclerosis of native arteries of extremities, unspecified extremity; D50.9 Iron deficiency anemia, unspecified; Z72.0 Tobacco use; Z79.899 Other long term (current) drug therapy; Z79.02 Long term (current) use of antithrombotics/antiplatelets
CPT/HCPCS: 71045; 78452; 80053; 82728; 83540; 83550; 84484; 85025; 93005; 93017; 93306; 94640; 99284; A9502; G0378; U0003

== ENCOUNTER → 2021-09-21 13:13 | Outpatient (CLI) | payer BC, SELFPAY ==
--- NOTE | 2021-09-21 13:14 | CA_ITS ---
FINAL REPORT CLINICAL HISTORY: pain/bruising, Pad WITH LEG STENTS, SMOKER FINDINGS: Color Doppler, duplex Doppler and compression sonography of the bilateral lower extremities was performed. There is no evidence of deep venous thrombosis from the level of the groin to the calf. The deep veins are patent and compressible. IMPRESSION: No evidence of deep venous thrombosis bilateral lower extremities. Reviewed, Interpreted and Dictated by Surendra Tate III, MD Transcribed by Per Benson Authenticated and [facility]
[2021-09-21 14:32] LABS: INR 0.96 (0.9-1.1); Prothrombin Time 10.9 seconds (10.1-12.5)
[2021-09-23 08:30] LABS: Homocyst(e)ine 12.5 umol/L (0.0-14.5)
[2021-09-26 14:15] LABS: Anti-Thrombin III Antigen 103 % (72-124); Antithrombin Activity 103 % (75-135); Factor VIII Activity 130 % (56-140); Protein C Functional 89 % (73-180); Protein S, Free 76 % (61-136); Protein S, Total 73 % (60-150); Protein S-Functional 61 % (63-140)
[2021-09-27 02:17] LABS: Protein C Antigen 84 % (60-150)
== END ==
PROVIDERS: PCP Emergency Medicine; Visit Provider Emergency Medicine
DX: M79.605 Pain in left leg (principal); M79.604 Pain in right leg; T14.8XXA Other injury of unspecified body region, initial encounter; D68.9 Coagulation defect, unspecified
CPT/HCPCS: 36415; 81241; 83090; 85240; 85300; 85301; 85302; 85305; 85306; 85610; 86148; 93970

== ENCOUNTER → 2022-01-22 13:57 | Outpatient (CLI) | payer BC, SELFPAY ==
--- NOTE | 2022-01-22 13:59 | XR_ITS ---
FINAL REPORT CLINICAL HISTORY: cough, dyspnea, hx copd COMPARISON: 04/25/2020 FINDINGS: 2 views of the chest were obtained . The heart is normal in size. The mediastinum is within normal limits. The lungs are clear. There is no pneumothorax. Osseous structures are unremarkable. IMPRESSION: No acute cardiopulmonary process. Reviewed, Interpreted and Dictated by Choco Echols MD Transcribed by Jovita Munson Authenticated and [facility]
--- NOTE | 2022-01-22 13:59 | XR_ITS ---
FINAL REPORT CLINICAL HISTORY: anterior rib pain under right breast FINDINGS: RIGHT RIB SERIES Three views of the right ribs were obtained. There is no acute rib fracture or dislocation. There is no pneumothorax. No acute bony abnormality is identified. Soft tissues are unremarkable. IMPRESSION: No acute bony abnormality. Reviewed, Interpreted and Dictated by Choco Echols MD Transcribed by Jovita Munson Authenticated and [facility]
== END ==
PROVIDERS: PCP Emergency Medicine; Visit Provider Student in an Organized Health Care Education/Training Program
DX: R06.00 Dyspnea, unspecified (principal); R07.81 Pleurodynia; J44.9 Chronic obstructive pulmonary disease, unspecified
CPT/HCPCS: 71046; 71100

== ENCOUNTER → 2022-02-14 14:52 | Outpatient (CLI) | payer BC, SELFPAY ==
--- NOTE | 2022-02-14 14:52 | MM_ITS ---
PROCEDURE INFORMATION: Exam: MG Bilateral Screening 3D Mammography Exam date and time: 02/14/2022 3:04 PM Age: 51 years old Clinical indication: Screening. No family history of breast cancer. History of benign left biopsy. TECHNIQUE: Imaging protocol: Bilateral Screening tomosynthesis and 2D mammography including computer-aided detection (CAD) when performed. COMPARISON: 1. MG MM DIG MAMM DX UNILAT RT CAD 09/21/2019 1:13 PM 2. MG MM DIG SCREENING MAMM BI W/CAD 11/10/2018 9:15 AM 3. MG DXBI MM Dig mamm BI DX w/CAD 10/29/2017 8:46 AM 4. MG DMDXUL DIG MAMM-DX UNI-LT 09/14/2015 3:28 PM FINDINGS: MAMMOGRAPHY: Breast composition: The breasts are heterogeneously dense, which may obscure small masses. Mass: No suspicious mass. Architectural distortion: None. Calcifications: No suspicious calcifications. Asymmetric density: None. Skin thickening: None. Axillary adenopathy: None. Other: Left biopsy clip. IMPRESSION: No mammographic evidence of malignancy. Annual screening is recommended unless otherwise clinically indicated. ASSESSMENT: BI-RADS Category 2: Benign
== END ==
PROVIDERS: PCP Emergency Medicine; Visit Provider Student in an Organized Health Care Education/Training Program
DX: Z12.31 Encounter for screening mammogram for malignant neoplasm of breast (principal)
CPT/HCPCS: 77063; 77067

== ENCOUNTER → 2022-03-06 11:14 | Outpatient (CLI) | payer BC, SELFPAY ==
[2022-03-06 11:42] LABS: Basophils # 0.1 K/mm3 (0-0.2); Basophils % 1.3 % (0.1-2.0); Eosinophils # 0.3 K/mm3 (0.0-0.4); Eosinophils % 2.9 % (0.1-12.0); Hematocrit 44.2 % (37.0-47.0); Hemoglobin 14.8 g/dL (12.2-16.2); Lymphocytes # 2.3 K/mm3 (0.7-4.5); Lymphocytes % 22.9 % (10-50); Mean Corpuscular HGB Conc 33.4 g/dL (31.8-35.4); Mean Corpuscular Hemoglobin 31.3 pg (27.0-31.2); Mean Corpuscular Volume 93.7 fl (81-99); Mean Platelet Volume 7.9 fl (7.4-10.4); Monocytes # 0.5 K/mm3 (0.1-1.0); Neutrophils # 6.9 K/mm3 (1.8-7.8); Neutrophils % 67.9 % (37.0-80.0); Platelet Count 408 K/mm3 (142-424); Red Blood Count 4.72 M/mm3 (4.20-5.40); Red Cell Distribution Width 13.3 % (11.5-17.5); White Blood Count 10.1 K/mm3 (4.8-10.8)
[2022-03-06 12:21] LABS: Alanine Aminotransferase 12 U/L (12-78); Albumin Level 4.3 g/dl (3.5-5.0); Alkaline Phosphatase 58 U/L (38-126); Anion Gap 10.2 mEq/L (5-15); Aspartate Amino Transferase 19 U/L (14-36); Bilirubin,Direct 0.1 mg/dl (0.0-0.4); Bilirubin,Indirect 0.3 mg/dL (0.0-0.9); Bilirubin,Total 0.4 mg/dl (0.2-1.3); Bilirubin,Unconjugated 0.3 mg/dL (0.0-1.1); Blood Urea Nitrogen 6 mg/dl (7-17); Carbon Dioxide 26 mmol/L (22.0-30.0); Chloride 101 mmol/L (98-107); Chol/HDL Ratio 3.1 (1-3.5); Cholesterol 116 mg/dl (140-200); Estimated Glomerular Filt Rate 88 ml/min (>60); GFR (African American) 107 ML/MIN (>60); Glucose 92 mg/dl (74-100); HDL Cholesterol 37 mg/dl (40-60); Magnesium 1.8 mg/dl (1.6-2.3); Potassium 4.2 mmoL/L (3.5-5.1); Sodium 133 mmol/L (136-145); Triglycerides 119 mg/dl (30-150); VLDL Cholesterol 24 mg/dL (0-40)
[2022-03-06 12:36] LABS: Free T4 (Free Thyroxine) 1.04 ng/dl (0.78-2.19)
[2022-03-06 12:37] LABS: Direct LDL Cholesterol 57.39 mg/dL (100-129)
[2022-03-06 12:51] LABS: Thyroid Stimulating Hormone 3.16 uIU/mL (0.465-4.68)
== END ==
PROVIDERS: PCP Emergency Medicine; Visit Provider Nurse Practitioner
DX: R06.00 Dyspnea, unspecified (principal); R06.09 Other forms of dyspnea; R07.89 Other chest pain; I25.10 Atherosclerotic heart disease of native coronary artery without angina pectoris; I10 Essential (primary) hypertension; I73.9 Peripheral vascular disease, unspecified; E78.2 Mixed hyperlipidemia; Z72.0 Tobacco use
CPT/HCPCS: 36415; 80048; 80061; 80076; 83735; 84439; 84443; 85025

== ENCOUNTER → 2022-03-20 11:25 | Outpatient (CLI) | payer BC, SELFPAY ==
--- NOTE | 2022-03-20 | CA_ITS ---
APPROVED REPORT Exam: Pharmacologic Technologist: Hannah Lima, Ht: 5 ft 6 in Wt: 121 lbs BSA: 1.62 m2 HR: 62 bpm BP: 134/54 mmHg Rhythm: NSR, PAC, cannot R/O old anteroseptal FL, NS ST abns Indications: CP, Claudication Medical History Medical History: HTN, Hyperlipidemia Medications: Irbesartan,,,,, Aspirin,,,,, Metoprolol,,,,, Atorvastatin,,,,, SyMBICORT,,,,, CloPIdogrel,,,,, ProAir,,,,, BenaDRYL,,,,, DuonebS,,,,, ONdansetron,,,,, Hydrocortisone,,,,, Cardiac Risk Factors: HTN, Hyperlipidemia, Smoking Stress Test Details Test: LEXISCAN HR Resting HR: 69 bpm Max Heart Rate (APMHR): 169 bpm Max HR Achieved: 114 bpm Target HR (85% APMHR): 144 bpm % of APMHR: 67 Recovery HR: 90 bpm BP Resting BP: 134/54 mmHg Max BP: 155/86 mmHg Recovery BP: 138.0/74.0 mmHg ECG Resting ECG: NSR, PAC, cannot R/O old anteroseptal FL, NS ST abns Clinical Exercise duration: 04:01 min Highest Stage Achieved: Exercise capacity: 1.0 METs Stress ECG Conclusion During lexiscan pt experinced mild chest discomfort. SOA and nausea. Moderately frequent PACs. Exaggeration of baseline ST abns. Non diagnostic lexiscan stress. Myoview images reported separately. Test Summary REST . . . . . . . Sitting REST 11:24 . . 69 . 134/ 54 . . Stage 1 01:00 . . 108 . . . . Stage 2 01:00 . . 103 . 155/ 86 . . Stage 3 01:00 . . 102 . 136/ 75 . . Stage 4 01:00 . . 88 . . . . Stage 4 01:01 . . 91 . . . Stop exercise at 04:01 RECOVERY 01:00 . . 96 . 145/ 75 . . RECOVERY 02:00 . . 85 . 145/ 75 . . RECOVERY 03:00 . . 86 . 138/ 74 . . RECOVERY 04:00 . . 80 . 138/ 74 . . RECOVERY 05:00 . . 75 . 127/ 68 . . RECOVERY 06:00 . . 0 . 127/ 68 . . RECOVERY 06:06 . . 0 . 127/ 68 . . Electronically signed by : Mynor Dumont MD 03/20/2022 20:38:14
--- NOTE | 2022-03-20 11:25 | NM_ITS ---
APPROVED REPORT Exam: Nuclear Stress Test Indication: Chest pain, SOB, Palpitations, Syncope, HTN, High cholesterol, Tobacco use, Family history Patient Location: Outpatient Stress Tech: Hannah Lima NM Tech:Maria D Seals, ARRT, RT (R)(N) Ht: 5 ft 6 in Wt: 117 lbs Bra Size: B HR: 69 bpm BP: 134/54 mmHg BSA: 1.59 m2 TID: 1.02 BMI: 18.8 History: Chest pain, SOB, Palpitations, Syncope, HTN, High cholesterol, Tobacco use, Family history Procedure: Patient received a 0.4 mg of intravenous Lexiscan, resting heart rate 69 bpm, resting blood pressure 134/54 mmHg, with Lexiscan maximum heart rate achived was 114 bpm which is Less than 85 % of the maximum predicted heart rate and blood pressure was 155/86 mmHg. With Lexiscan, patient denied any complaint of chest pain. Electrocardiogram Resting electrocardiogram shows sinus rhythm, with Lexiscan there is less than 1.[address] segment depression noted from the baseline EKG. The EKG portion of the Lexiscan is nondiagnostic. Cardiac Stress and Resting SPECT Images: Cardiac Stress and Resting SPECT images were obtained using technetium 99m Myoview 32.9 mCi stress and 10.27 mCi at rest. Gated SPECT for analysis of segmental wall motion and calculation of the ejection fraction also done. Prone images were also obtained. Cardiac stress and muscle SPECT images show reversible ischemia involving the apex and anteroseptal wall, computer derived ejection fraction is 63% with no regional wall motion abnormality, right ventricle is normal size and contractility. Conclusion: 1. The EKG portion of the Lexiscan is nondiagnostic. 2. Scintigraphic evidence of reversible ischemia involving the apex and anteroseptal wall, computer derived ejection fraction 63% with no regional wall motion abnormality, right ventricle is normal size and contractility. 3. Abnormal Lexiscan Myoview study. Electronically signed by : Mynor Dumont MD 03/20/2022 20:43:57
--- NOTE | 2022-03-20 12:44 | US_ITS ---
FINAL REPORT CLINICAL HISTORY: Persistent smoker ,Pad with persistent claudication and Left foot pain at rest. Hx of bilateral LE arterial stents FINDINGS: LOWER EXTREMITY SEGMENTAL PRESSURE MEASUREMENTS FINDINGS: Pressure indices are as follows: RIGHT LOWER EXTREMITY: Lower thigh: 0.89 Calf: 0.86 Ankle, posterior tibial artery: 0.93 Ankle, dorsalis pedis: 0.81 Toe: 0.63 LEFT LOWER EXTREMITY: Lower thigh: 0.81 Calf: 0.86 Ankle, posterior tibial artery: 0.85 Ankle, dorsalis pedis: 0.77 Toe: 0.39 IMPRESSION: Mild bilateral peripheral vascular disease, likely related to inflow disease of the aortoiliac distribution or common femoral arteries. Reviewed, Interpreted and Dictated by Power Cerna MD Transcribed by Asuncion Quevedo Authenticated and [facility]
--- NOTE | 2022-03-20 13:11 | HMH.ITSHM ---
Current Home Medications as stated by this patient Peri Castellanos or sales representative consultant. []VORTIOXETINE ONDANSETRON METOPROLOL IRBESARTAN DIPHENHYDRAMINE CLOPIDOGREL BUDESONIDE ATORVASTATIN ASA ALBUTEROL
== END ==
PROVIDERS: PCP Emergency Medicine; Visit Provider Nurse Practitioner
DX: R06.09 Other forms of dyspnea (principal); R07.89 Other chest pain; I25.10 Atherosclerotic heart disease of native coronary artery without angina pectoris; I10 Essential (primary) hypertension; E78.2 Mixed hyperlipidemia; I73.9 Peripheral vascular disease, unspecified; Z72.0 Tobacco use
CPT/HCPCS: 78452; 93017; 93923; A9502; J2785

== ENCOUNTER 2022-03-28 08:21 | Day surgery (SDC) | payer BC, SELFPAY ==
[2022-03-28] VITALS (16 sets, daily range): BP systolic 102–147; BP diastolic 60–90; PULSE 64–82; RESP 14–20; O2SAT 90–98; BMI 19.3
[2022-03-28 08:46] LABS: Basophils # 0.1 K/mm3 (0-0.2); Eosinophils # 0.4 K/mm3 (0.0-0.4); Eosinophils % 3.7 % (0.1-12.0); Hemoglobin 14.8 g/dL (12.2-16.2); Lymphocytes # 2.2 K/mm3 (0.7-4.5); Lymphocytes % 19.6 % (10-50); Mean Corpuscular HGB Conc 31.4 g/dL (31.8-35.4); Mean Corpuscular Volume 98.5 fl (81-99); Mean Platelet Volume 7.7 fl (7.4-10.4); Monocytes # 0.5 K/mm3 (0.1-1.0); Monocytes % 4.6 % (1.7-9.3); Neutrophils # 8.1 K/mm3 (1.8-7.8); Neutrophils % 71.1 % (37.0-80.0); Platelet Count 397 K/mm3 (142-424); Red Blood Count 4.77 M/mm3 (4.20-5.40); Red Cell Distribution Width 13.3 % (11.5-17.5); White Blood Count 11.4 K/mm3 (4.8-10.8)
[2022-03-28 09:01] LABS: Anion Gap 8.4 mEq/L (5-15); Blood Urea Nitrogen 8 mg/dl (7-17); Calcium 9.2 mg/dl (8.4-10.2); Carbon Dioxide 30 mmol/L (22.0-30.0); Chloride 105 mmol/L (98-107); Creatinine Clearance Estimated 82 mL/min (50-200); Estimated Glomerular Filt Rate 88 ml/min (>60); GFR (African American) 107 ML/MIN (>60); Glucose 102 mg/dl (74-100); Potassium 4.4 mmoL/L (3.5-5.1); Sodium 139 mmol/L (136-145)
--- NOTE | 2022-03-28 10:08 | IR_ITS ---
APPROVED REPORT Patient Location: Outpatient Communications Officer: FELICITY Benitez RT (R) PROCEDURES Left heart catheterization Left ventriculogram Selective coronary angiogram Drug-eluting stent deployment to the proximal severe proximal and mid LAD disease as described above with successful stenting reducing the severe stenosis to 0% with 2 contiguous stents LAD Catheter placement in the right common iliac artery Right common iliac artery antegrade angiogram with unilateral runoff to the right foot Catheter placement in the left common iliac artery Left common iliac artery antegrade angiogram with unilateral runoff to the left foot Catheter placed in the distal abdominal aorta Distal abdominal aortography INDICATION Angina pectoris class III-IV, Coronary artery disease, High risk abnormal Myoview anteroapical ischemia, Known peripheral artery disease with bilateral iliac artery reconstruction, Abnormal OLENA, Marjan claudication class III Informed consent was obtained prior to the procedure. COMPLICATIONS None Estimated Blood Loss: Less than 10 mls TECHNIQUE One percent lidocaine used to anesthetize the right anterior aspect of the wrist. The right radial artery was accessed via the Seldinger technique. A 6 Honduran sheath was placed in the right radial artery. 2.5 mg of verapamil, 800 mcg of nitroglycerin, 1mg Lidocaine and 5000 U Heparin were given through the arterial sheath. The papa catheter was also used to perform left heart catheterization, left ventriculogram and selective coronary angiogram. At the end the diagnostic angiogram therapeutic heparin was administered giving a therapeutic ACT and the guide catheter was placed in the left main artery followed by a Choice PT extra-support wire being placed down the LAD. A 3.5 x 15 mm resolute Valdez stent was deployed at 16 lacho in the mid LAD reducing the stenosis to 0%. There is an additional 50% stenosis proximal to the stent therefore an additional 3.5 x 15 mm resolute Valdez stent was then deployed proximal to the for stent yet still overlapping it at 18 lacho reducing the stenosis to 0%. CINDY-3 flow was present before and after the procedure. Following this a RAMOS catheter was used to traverse the wire along the transverse aorta and then distally into the distal abdominal aorta. A PV multi curve was placed in the right common iliac artery where right common iliac artery antegrade angiography was performed with unilateral runoff to the right foot. This procedure was repeated into the left common iliac artery. Following this the catheter was pulled back into the distal abdominal aorta were distal abdominal aortography was performed. At the end the procedure the apparatus was removed the sheath was removed and hemostasis was achieved using TR banding patient was transferred to the postop putting in stable condition ANGIOGRAPHIC RESULTS The left main artery Normal The left anterior descending artery Has proximal 50% stenoses with an additional mid vessel 70% stenosis. The distal LAD has mild diffuse 10% luminal regularities. The LAD is large and wraps the apex The circumflex artery Gives rise to a large ramus intermedius which is widely patent with mid vessel 10 to 20% stenoses. The circumflex artery itself is small nondominant with diffuse 20% stenoses The right coronary artery Is dominant and has an anterior takeoff. Proximal segment has 10% stenosis with a mid segment has 20% with distal 20% stenosis The BARRIENTOS ventriculogram reveals Normal 65% The left ventricular end-diastolic pressure 10 mmHg Distal abdominal aorta is mildly atheromatous with stents in the distal abdominal aorta which extend into the bilateral common iliac arteries. Both l
[2022-03-28 11:55] LABS: CATHL Activated Clotting Time > 400 SEC (74-125)
--- NOTE | 2022-03-28 14:43 | HMH.PHACL ---
PHA Histotechnologist Discharge Med Jewelry Facer: Peri Castellanos has received discharge medication counseling on the following medications: ASPIRIN 81 MG DAILY ATORVASTATIN 20 MG HS CLOPIDOGREL 75 MG DAILY IRBESARTAN 75 MG DAILY METOPROLOL TARTRATE 50 MG BID
== END 2022-03-28 15:33 | disposition home or self-care (01) ==
PROVIDERS: PCP Internal Medicine; Visit Provider Internal Medicine
DX: I70.213 Atherosclerosis of native arteries of extremities with intermittent claudication, bilateral legs (principal); F17.210 Nicotine dependence, cigarettes, uncomplicated; I25.110 Atherosclerotic heart disease of native coronary artery with unstable angina pectoris; Z79.01 Long term (current) use of anticoagulants; Z79.899 Other long term (current) drug therapy
CPT/HCPCS: 80048; 85025; 85347; 92928; 93458; 99152; 99153; C1725; C1769; C1874; C9600; G0278; J1644; Q9966; Q9967

== ENCOUNTER → 2022-04-02 13:04 | Outpatient (CLI) | payer BC, SELFPAY ==
--- NOTE | 2022-04-02 13:07 | CA_ITS ---
FINAL REPORT TECHNIQUE: Limited imaging of the right radial artery was obtained. CLINICAL HISTORY: Z98.890 - Other specified postprocedural states, Smoler, S/P heart cath 4-5 days ago, persistant rt wrist pain. FINDINGS: Limited evaluation of the right radial artery demonstrates partial thrombosis. Some residual flow seen on spectral imaging. IMPRESSION: Partial thrombosis of the visualized right radial artery with some residual flow seen. Reviewed, Interpreted and Dictated by Carole Salazar MD Transcribed by Jovita Munson Authenticated and [facility]
== END ==
PROVIDERS: PCP Emergency Medicine; Visit Provider Internal Medicine
DX: I77.0 Arteriovenous fistula, acquired (principal); Z98.890 Other specified postprocedural states
CPT/HCPCS: 93931

== ENCOUNTER 2022-04-24 09:10 | Outpatient (RCR) | payer BC, SELFPAY | END 2022-06-05 11:00 | disposition home or self-care (01) | LOC: PT 09:10 | PROVIDERS: Visit Provider Internal Medicine | DX: I25.10 Atherosclerotic heart disease of native coronary artery without angina pectoris (principal); Z95.5 Presence of coronary angioplasty implant and graft | CPT/HCPCS: 93798 ==

== ENCOUNTER → 2022-05-03 10:01 | Outpatient (CLI) | payer BC, SELFPAY ==
--- NOTE | 2022-05-03 10:04 | CA_ITS ---
FINAL REPORT CLINICAL HISTORY: F/U RT RADIAL ARTERY THROMBUS,PT ON XARELTO ,PT HAD CATH ON 03/28/22 COMPARISON: 04/02/2022 FINDINGS: Spectral and Doppler waveform evaluations of the right wrist was performed. Spectral analysis was performed. There is a small amount of residual thrombus within the right radial artery but improved since prior. IMPRESSION: Small amount of residual thrombus in the right radial artery but improved since prior. Reviewed, Interpreted and Dictated by Carole Salazar MD Transcribed by Asuncion Quevedo Authenticated and [facility]
== END ==
PROVIDERS: PCP Emergency Medicine; Visit Provider Physician Assistant
DX: M25.531 Pain in right wrist (principal); G89.18 Other acute postprocedural pain; I74.2 Embolism and thrombosis of arteries of the upper extremities
CPT/HCPCS: 93931

== ENCOUNTER → 2022-05-09 12:31 | Outpatient (CLI) | payer BC, SELFPAY ==
[2022-05-09 13:30] VITALS: PULSE 89; PULSE 94
--- NOTE | 2022-05-09 14:06 | CT_ITS ---
FINAL REPORT TECHNIQUE: Axial images were obtained from the lung apex to the mid abdomen by computed tomography. This study was performed with techniques to keep radiation doses as low as reasonably achievable (ALARA). Individualized dose reduction techniques using automated exposure control or adjustment of mA and/or kV according to the patient's size were employed. CLINICAL HISTORY: C/o cough, hx COPD, smoker x 37 yrs, 1-2 ppd. COMPARISON: 06/14/2019 FINDINGS: CHEST CT LOW DOSE CTDI vol (mGy): 2.90 DLP (mGy-cm): 103.68 There is no axillary adenopathy. There is no hilar or mediastinal adenopathy. The heart is normal in size. There is no pericardial or pleural effusion. Lung window images demonstrate no suspicious infiltrate or nodule. There is mild scarring. There are several calcified granulomas. Limited images of the upper abdomen are unremarkable. IMPRESSION: Lung RADS category 1. Recommend 12 month follow-up low-dose chest CT. Reviewed, Interpreted and Dictated by Surendra Tate III, MD Transcribed by Asuncion Quevedo Authenticated and . [facility]
== END ==
PROVIDERS: PCP Emergency Medicine; Visit Provider Internal Medicine Pulmonary Disease
DX: Z87.891 Personal history of nicotine dependence (principal); Z12.2 Encounter for screening for malignant neoplasm of respiratory organs; R06.02 Shortness of breath
CPT/HCPCS: 71271; 94060; 94618; 94640; 94727; 94729

== ENCOUNTER → 2022-05-31 12:35 | Outpatient (CLI) | payer BC, SELFPAY ==
--- NOTE | 2022-05-31 12:45 | CA_ITS ---
FINAL REPORT CLINICAL HISTORY: right radial thrombus. patient had a heart cath 03/28/22 with right radial access. 04/02/22 patient had an ultrasound with a right radial thrombus seen. Recheck today. Patient is currently taking ASA, Xarelto, and Plavix daily. COMPARISON: 05/03/2022 FINDINGS: Spectral and Doppler waveform evaluations of the right wrist was performed. Spectral analysis was performed. No flow identified within the right radial artery. This appears worse since the prior. IMPRESSION: Worsening thrombus right radial artery. Reviewed, Interpreted and Dictated by Surendra Tate III, MD Transcribed by Katelin William Authenticated and . [facility]
[2022-05-31 12:55] LABS: Basophils # 0.1 K/mm3 (0-0.2); Basophils % 0.9 % (0.1-2.0); Eosinophils # 0.4 K/mm3 (0.0-0.4); Eosinophils % 4.1 % (0.1-12.0); Hematocrit 26.9 % (37.0-47.0); Hemoglobin 7.6 g/dL (12.2-16.2); Lymphocytes # 2.1 K/mm3 (0.7-4.5); Lymphocytes % 23.1 % (10-50); Mean Corpuscular HGB Conc 28.3 g/dL (31.8-35.4); Mean Corpuscular Hemoglobin 23.5 pg (27.0-31.2); Mean Platelet Volume 8.7 fl (7.4-10.4); Monocytes # 0.5 K/mm3 (0.1-1.0); Monocytes % 5.6 % (1.7-9.3); Neutrophils # 5.9 K/mm3 (1.8-7.8); Neutrophils % 66.2 % (37.0-80.0); Platelet Count 501 K/mm3 (142-424); Red Blood Count 3.24 M/mm3 (4.20-5.40); Red Cell Distribution Width 20.3 % (11.5-17.5); White Blood Count 8.9 K/mm3 (4.8-10.8)
[2022-06-05 13:09] LABS: D001-IgE D pteronyssinus <0.10 kU/L (Class 0); D002-IgE D farinae <0.10 kU/L (Class 0); E001-IgE Cat Dander <0.10 kU/L (Class 0); E005-IgE Dog Dander <0.10 kU/L (Class 0); E072-IgE Mouse Urine <0.10 kU/L (Class 0); G002-IgE Bermuda Grass <0.10 kU/L (Class 0); G006-IgE Timothy Grass <0.10 kU/L (Class 0); I006-IgE Cockroach, German <0.10 kU/L (Class 0); Immunoglobulin E, Total 39 IU/mL (6-495); M001-IgE Penicillium chrysogen <0.10 kU/L (Class 0); M002-IgE Cladosporium herbarum <0.10 kU/L (Class 0); M003-IgE Aspergillus fumigatus <0.10 kU/L (Class 0); M006-IgE Alternaria alternata <0.10 kU/L (Class 0); T001-IgE Maple/Box Elder <0.10 kU/L (Class 0); T003-IgE Common Silver Birch <0.10 kU/L (Class 0); T006-IgE Cedar, Mountain <0.10 kU/L (Class 0); T007-IgE Oak, White <0.10 kU/L (Class 0); T008-IgE Elm, American <0.10 kU/L (Class 0); T010-IgE Walnut <0.10 kU/L (Class 0); T011-IgE Maple Leaf Sycamore <0.10 kU/L (Class 0); T014-IgE Cottonwood <0.10 kU/L (Class 0); T015-IgE Ash, White <0.10 kU/L (Class 0); T022-IgE Pecan, Hickory <0.10 kU/L (Class 0); T070-IgE White Mulberry <0.10 kU/L (Class 0); W001-IgE Ragweed, Short <0.10 kU/L (Class 0); W011-IgE Thistle, Russian <0.10 kU/L (Class 0); W014-IgE Pigweed, Common <0.10 kU/L (Class 0); W018-IgE Sheep Sorrel <0.10 kU/L (Class 0)
== END ==
PROVIDERS: Internal Medicine Pulmonary Disease; PCP Emergency Medicine; Visit Provider Physician Assistant
DX: M79.601 Pain in right arm (principal); I74.2 Embolism and thrombosis of arteries of the upper extremities; J45.909 Unspecified asthma, uncomplicated
CPT/HCPCS: 36415; 82785; 85025; 86003; 93931

== ENCOUNTER → 2022-06-08 10:12 | Outpatient (CLI) | payer BC, SELFPAY ==
--- NOTE | 2022-06-08 10:18 | XR_ITS ---
FINAL REPORT CLINICAL HISTORY: hip pain FINDINGS: LEFT HIP 2 views of the left hip an AP view of the pelvis was obtained. There is no acute fracture or dislocation. Visualized joint spaces are normally aligned. Bilateral iliac stents are seen. There is no acute soft tissue abnormality. IMPRESSION: No acute bony abnormality. Reviewed, Interpreted and Dictated by Choco Echols MD Transcribed by Jovita Munson Authenticated and [facility]
== END ==
PROVIDERS: PCP Emergency Medicine; Visit Provider Orthopaedic Surgery
DX: M25.552 Pain in left hip (principal)
CPT/HCPCS: 73502

== ENCOUNTER 2022-06-21 16:30 | Outpatient (RCR) | payer BC, SELFPAY ==
--- NOTE | 2022-06-14 10:50 | HMH.PTOPEV ---
PT Outpatient Evaluation Rehab PT Outpatient Evaluation Start: 06/14/22 10:23 Freq: Status: Active Protocol: Document 06/14/22 10:24 GARYMARIALUISA (Rec: 06/14/22 10:50 LORRI [id number]) E-signed By Mook Oliveros, PT Outpatient Therapy Subjective History Subjective History Patient is a 52 year old female presenting to outpatient PT with reports of chronic L hip pain starting at the age of 2 that has progessively gotten worse over the past 2 years. She was previously seen by a chiropractor diagnosing her with a LLD corrected with a heel lift, which has since been lost. Specialt tests indicate LLD L longer than right approx 1 inch. She has prevously complained of LBP. Most recent LS CT indicates mult-level bulging discs. No relief with lumbar extension. Comorbidities include hx of cardiac stent x 1 and leg stent placement x 2, COPD, HTN and HL. Chief Complaint Pain,Spasms,Stiff,Clicks Symptom Type Sharp,Burning Symptoms Relieved By Nothing Symptoms Aggravated By Standing,Physical Activity, Walking Prior Functional Limitations None Current Functional Limitations Lifting,Housework,Sleeping, Standing,Squatting,Walking, Stairs Symptom Description Constant but Variable Level of pain today (0-10) 6 Pain scale - at its best (0-10) 2 Pain scale - at its worst (0-10) 9 Hip/Knee Eval Gait Observation General Gait Pattern Observation Antalgic Gait,Decrease Weight Bear (L) Assistive Device Assistive Devices None / NA Palpation Tenderness left Knee Palpation Finding Tenderness Knee Palpation Overall Comment L TLF 2/4 MMT Hip Strength Reason Not Measured WFL Knee Strength Reason Not Measured WFL ROM Hip ROM Reason Not Measured Within Functional Limits Knee ROM Reason Not Measured Within Functional Limits Special Tests Hip Faisal Test Positive Left Hip Piriformis Test Positive Left Peña Test Positive Outpatient Therapy Assessment Impairments Problems/Impairmments Palpation Tenderness,Impaire
== END 2022-06-21 16:35 | disposition home or self-care (01) ==
LOC: PT 16:30
PROVIDERS: PCP Emergency Medicine; Visit Provider Orthopaedic Surgery
DX: M25.552 Pain in left hip (principal)
CPT/HCPCS: 97010; 97014; 97110; 97163; G0283

== ENCOUNTER → 2022-08-02 09:26 | Outpatient (CLI) | payer BC, SELFPAY ==
[2022-08-02 10:35] LABS: Basophils # 0.1 K/mm3 (0-0.2); Basophils % 0.7 % (0.1-2.0); Eosinophils # 0.4 K/mm3 (0.0-0.4); Eosinophils % 4.5 % (0.1-12.0); Hematocrit 30.8 % (37.0-47.0); Hemoglobin 9.1 g/dL (12.2-16.2); Lymphocytes # 1.8 K/mm3 (0.7-4.5); Lymphocytes % 21.1 % (10-50); Mean Corpuscular HGB Conc 29.7 g/dL (31.8-35.4); Mean Corpuscular Hemoglobin 19.9 pg (27.0-31.2); Mean Corpuscular Volume 67.2 fl (81-99); Mean Platelet Volume 7.5 fl (7.4-10.4); Monocytes # 0.5 K/mm3 (0.1-1.0); Monocytes % 5.7 % (1.7-9.3); Neutrophils # 5.7 K/mm3 (1.8-7.8); Platelet Count 563 K/mm3 (142-424); Red Blood Count 4.58 M/mm3 (4.20-5.40); Red Cell Distribution Width 21.3 % (11.5-17.5); White Blood Count 8.4 K/mm3 (4.8-10.8)
[2022-08-02 11:19] LABS: Alanine Aminotransferase 18 U/L (12-78); Alkaline Phosphatase 51 U/L (38-126); Anion Gap 15.7 mEq/L (5-15); Aspartate Amino Transferase 26 U/L (14-36); Bilirubin,Indirect 0.2 mg/dL (0.0-0.9); Bilirubin,Total 0.2 mg/dl (0.2-1.3); Bilirubin,Unconjugated 0.2 mg/dL (0.0-1.1); Blood Urea Nitrogen 7 mg/dl (7-17); Calcium 9.1 mg/dl (8.4-10.2); Carbon Dioxide 27 mmol/L (22.0-30.0); Chloride 99 mmol/L (98-107); Cholesterol 112 mg/dl (140-200); Estimated Glomerular Filt Rate 105 ml/min (>60); GFR (African American) 127 ML/MIN (>60); Glucose 88 mg/dl (74-100); HDL Cholesterol 56 mg/dl (40-60); Magnesium 1.9 mg/dl (1.6-2.3); Potassium 4.7 mmoL/L (3.5-5.1); Sodium 137 mmol/L (136-145); Total Protein,Serum 6.8 g/dl (6.3-8.2); Triglycerides 86 mg/dl (30-150); VLDL Cholesterol 17 mg/dL (0-40)
[2022-08-02 11:30] LABS: Direct LDL Cholesterol 52.64 mg/dL (100-129)
[2022-08-02 11:35] LABS: Free T4 (Free Thyroxine) 0.85 ng/dl (0.78-2.19)
[2022-08-02 11:43] LABS: Iron 18 ug/dL (37-170)
[2022-08-02 11:50] LABS: Thyroid Stimulating Hormone 2.81 uIU/mL (0.465-4.68)
[2022-08-02 12:50] LABS: Total Iron Binding Capacity 422 ug/dL (265-497)
[2022-08-02 14:02] LABS: Ferritin 5.35 ng/ml (11.1-264)
== END ==
PROVIDERS: PCP Emergency Medicine; Visit Provider Physician Assistant
DX: R42 Dizziness and giddiness (principal); R06.00 Dyspnea, unspecified; I25.10 Atherosclerotic heart disease of native coronary artery without angina pectoris; I11.9 Hypertensive heart disease without heart failure; E78.5 Hyperlipidemia, unspecified; I74.2 Embolism and thrombosis of arteries of the upper extremities; J44.9 Chronic obstructive pulmonary disease, unspecified; D64.9 Anemia, unspecified; I63.9 Cerebral infarction, unspecified; E11.9 Type 2 diabetes mellitus without complications; Z72.0 Tobacco use
CPT/HCPCS: 36415; 80048; 80061; 80076; 82728; 83540; 83550; 83735; 84439; 84443; 85025; 93225

== ENCOUNTER → 2023-02-25 15:50 | Outpatient (CLI) | payer BC, SELFPAY ==
--- NOTE | 2023-02-25 16:21 | MM_ITS ---
PROCEDURE INFORMATION: Exam: MG Bilateral Screening 3D Mammography Exam date and time: 02/25/2023 4:08 PM Age: 52 years old Clinical indication: Screening examination TECHNIQUE: Imaging protocol: Bilateral Screening tomosynthesis and 2D mammography including computer-aided detection (CAD) when performed. COMPARISON: 1. MG MM DIG SCREENING MAMM BI W/CAD 02/14/2022 3:04 PM 2. MG MM DIG MAMM DX UNILAT RT CAD 09/21/2019 1:13 PM FINDINGS: MAMMOGRAPHY: Breast composition: The breasts are extremely dense, which lowers the sensitivity of mammography. Mass: None. Architectural distortion: None. Calcifications: No suspicious calcifications. Asymmetric density: None. Skin thickening: None. Axillary adenopathy: None. IMPRESSION: No mammographic evidence of malignancy. Annual screening is recommended unless otherwise clinically indicated. ASSESSMENT: BI-RADS Category 1: Negative
== END ==
PROVIDERS: PCP Emergency Medicine; Visit Provider Emergency Medicine
DX: Z12.31 Encounter for screening mammogram for malignant neoplasm of breast (principal)
CPT/HCPCS: 77063; 77067

== ENCOUNTER 2023-05-01 11:41 | Outpatient (CLI) | payer BC, MEDICAID, SELFPAY ==
[2023-05-01 12:02] LABS: Basophils % 0.2 % (0.1-2.0); Eosinophils # 0.3 K/mm3 (0.0-0.4); Eosinophils % 2.6 % (0.1-12.0); Hemoglobin 15.2 g/dL (12.2-16.2); Lymphocytes # 1.9 K/mm3 (0.7-4.5); Lymphocytes % 17.5 % (10-50); Mean Corpuscular HGB Conc 33.1 g/dL (31.8-35.4); Mean Corpuscular Hemoglobin 32.3 pg (27.0-31.2); Mean Corpuscular Volume 97.7 fl (81-99); Mean Platelet Volume 7.7 fl (7.4-10.4); Monocytes # 0.6 K/mm3 (0.1-1.0); Monocytes % 5.5 % (1.7-9.3); Neutrophils # 8.1 K/mm3 (1.8-7.8); Neutrophils % 74.2 % (37.0-80.0); Platelet Count 383 K/mm3 (142-424); Red Blood Count 4.71 M/mm3 (4.20-5.40); Red Cell Distribution Width 13.1 % (11.5-17.5); White Blood Count 10.9 K/mm3 (4.8-10.8)
[2023-05-01 12:25] LABS: Iron 80 ug/dL (37-170)
[2023-05-01 12:34] LABS: Total Iron Binding Capacity 329 ug/dL (265-497)
[2023-05-01 13:00] LABS: Ferritin 18.1 ng/ml (11.1-264)
== END 2023-05-01 23:59 ==
LOC: LAB.DROPOF 11:42
PROVIDERS: PCP Family Medicine; Visit Provider Family Medicine
DX: D64.9 Anemia, unspecified (principal)
CPT/HCPCS: 82728; 83540; 83550; 85025

== ENCOUNTER 2023-05-02 09:52 | Emergency (ER) | payer BC, SELFPAY ==
[2023-05-02 10:03] VITALS: BP 164/83; PULSE 60; RESP 18; TEMP 36.5; O2SAT 99; BMI 19.1
--- NOTE | 2023-05-02 10:26 | CT_ITS ---
FINAL REPORT CLINICAL HISTORY: lower abd pain, hematochezia, rectal pressure COMPARISON: 06/14/2019 FINDINGS: CT OF THE ABDOMEN AND PELVIS WITH CONTRAST Axial CT images of the abdomen and pelvis were obtained after the administration of IV contrast. Coronal reformatted images were also obtained and reviewed.This study was performed with techniques to keep radiation doses as low as reasonably achievable (ALARA). Individualized dose reduction techniques using automated exposure control or adjustment of mA and/or kV according to the patient''s size were employed. Abdomen: The lung bases are clear. The heart is normal in size. The liver has an unremarkable appearance, without evidence of mass or biliary ductal dilatation. The spleen is unremarkable. No adrenal mass is present. The pancreas has an unremarkable appearance. The kidneys are normal, without evidence of mass or hydronephrosis. The aorta is normal in caliber. Bilateral iliac stents are present. There is no free fluid or adenopathy. No mass or abnormal fluid collection is seen. Pelvis: The appendix is not visualized. There is a moderate to large stool burden. There is mild nonspecific bladder wall thickening. The uterus is lobular in contour which may represent uterine fibroids. There is no evidence of bowel obstruction. IMPRESSION: Moderate to large stool burden. Probable uterine fibroids. Reviewed, Interpreted and Dictated by Surendra Tate III, MD Transcribed by Katelin William Authenticated and [facility]
[2023-05-02 10:30] VITALS: BP 140/65; PULSE 55; O2SAT 97
--- NOTE | 2023-05-02 10:33 | ED_ITS ---
Discharge Plan Disposition Patient Disposition: Home, Self-Care Prescriptions Prescriptions: No Action clopidogrel 75 mg tablet 75 mg PO DAILY fluticasone propionate [Flonase Allergy Relief] 50 mcg/actuation spray,suspension 2 spray intranasal DAILY 90 Days Qty: 16 3RF Rx Instructions: administer into each nostril ipratropium-albuterol 0.5 mg-3 mg(2.5 mg base)/3 mL solution for nebulization 3 ml inhalation QID PRN (Reason: shortness of breath or wheezing) 90 Days Qty: 270 3RF montelukast 10 mg tablet 10 mg PO DAILY 90 Days Qty: 90 3RF atorvastatin 20 mg tablet See Rx Instructions .ROUTE .COMPLEX Qty: 90 3RF Rx Instructions: TAKE 1 TABLET BY MOUTH ONCE DAILY aspirin 81 mg tablet,delayed release (DR/EC) See Rx Instructions .ROUTE .COMPLEX Qty: 90 3RF Rx Instructions: TAKE ONE TABLET BY MOUTH EVERY DAY FOR HEART DISEASE patient needs to make an appt before anymore refills metoprolol tartrate 50 mg tablet 50 mg PO BID Qty: 180 1RF spironolactone 100 mg tablet See Rx Instructions .ROUTE .COMPLEX Qty: 30 3RF Dose Instruction: TAKE 1 TABLET BY MOUTH ONCE DAILY Rx Instructions: TAKE 1 TABLET BY MOUTH ONCE DAILY budesonide-formoterol [Symbicort] 160-4.5 mcg/actuation HFA aerosol inhaler See Rx Instructions .ROUTE .COMPLEX Qty: 10.2 2RF Dose Instruction: INHALE 2 PUFFS BY MOUTH TWICE A DAY (RINSE MOUTH AFTER USE) Rx Instructions: INHALE 2 PUFFS BY MOUTH TWICE A DAY (RINSE MOUTH AFTER USE) azelastine 137 mcg (0.1 %) aerosol,spray See Rx Instructions .ROUTE .COMPLEX Qty: 30 2RF Dose Instruction: USE 2 SPRAYS IN EACH NOSTRIL AT BEDTIME NIGHTLY Rx Instructions: USE 2 SPRAYS IN EACH NOSTRIL AT BEDTIME NIGHTLY albuterol sulfate [Ventolin HFA] 90 mcg/actuation HFA aerosol inhaler See Rx Instructions .ROUTE .COMPLEX Qty: 18 1RF Dose Instruction: INHALE 2 PUFFS BY MOUTH FOUR TIMES A DAY NEEDED FOR SHORTNESS OF BREATH OR WHEEZING Rx Instructions: INHALE 2 PUFFS BY MOUTH FOUR TIMES A DAY NEEDED FOR SHORTNESS OF BREATH OR WHEEZING Referrals Follow up/Referrals: Peppin,Daniel F, DO [Primary Care Provider] - See instructions Activity Restrictions/Add. Instructions Additional Instructions/Restrictions: Please follow back up with Dr. Madrigal to discuss the findings of your mass which are most likely a uterine fibroid. You may keep your follow-up appoint with Dr. Chris for outpatient colonoscopy. Clinical Impressions Clinical Impression: Hematochezia, Rectal pressure, Lower abdominal pain, Fibroid, uterine Instructions Patient Instructions: DI for Urinary Tract Infection (UTI), DI for Urinary Tract Infection in Children Discharge ED Provider: Luís Jacob General Adult HPI General Chief complaint: Urogenital-Female Stated complaint: ABD and Rectum pain, mass in rectum Time Seen by Provider: 05/02/23 10:19 Mode of Arrival: Ambulatory Source of Information: Patient Limitations: No Limitations Description of Symptoms (Recalled from ER Triage Doc. by RN): Patient was sent over from Dr. Leigh's office. Patient has been having rectal pain, pressure in her vagina and trouble peeing for about [address] Leigh did a pelvic exam and was concerned about a possibe mass. History of Present Illness HPI narrative: Is a 53-year-old female sent from Dr. Madrigal's office for concern for rectal mass. Patient states over the last several weeks she has been having severe pre ssure in her rectum which has been unrelenting. Preceding that she had some hematochezia which she attributed to a hemorrhoid. At time she has had significant constipation and has been on iron supplementation but has had normal bowel movements in the last several days she states. Went to Dr. Madrigal today and had a vaginal exam which Dr. Madrigal felt a mass in concerning for rectal malignancy. Patient also complains of some lower abdominal discomfort. Denies any urinary symptoms aside from some urinary retention. Has a history of COPD peripheral arterial disease lung nodules with no definitive primary malignancy in the past. Related Data Home Medications Medication Instructions Recorded Confirmed clopidogrel 75 mg tablet 75 mg PO DAILY DAPT 12/05/22 05/02/23 Previous Rx's Medication Instructions Recorded fluticasone propionate 50 2 spray intranasal DAILY 90 days 05/15/22 mcg/actuation nasal #16 grams spray,suspension (Flonase Allergy Relief) ipratropium 0.5 mg-albuterol 3 mg 3 ml inhalation QID PRN shortness 05/15/22 (2.5 mg base)/3 mL nebulization of breath or wheezing 90 days #270 soln mL montelukast 10 mg tablet 10 mg PO DAILY 90 days #90 tabs 05/15/22 aspirin 81 mg tablet,delayed See Rx Instructions .Route 10/15/22 release .COMPLEX DAPT #90 tabs atorvastatin 20 mg tablet See Rx Instructions .Route 10/15/22 .COMPLEX Cholesterol #90 tabs metoprolol tartrate 50 mg tablet 50 mg PO BID heart . #180 tabs 12/14/22 spironolactone 100 mg tablet See Rx Instructions .Route 03/17/23 .COMPLEX #30 tabs azelastine 137 mcg (0.1 %) nasal See Rx Instructions .Route 04/15/23 spray aerosol .COMPLEX #30 mL budesonide-formoterol HFA 160 See Rx Instructions .Route 04/15/23 mcg-4.5 mcg/actuation aerosol .COMPLEX #10.2 grams inhaler (Symbicort) albuterol sulfate 90 mcg/actuation See Rx Instructions .Route 04/17/23 aerosol inhaler (Ventolin HFA) .COMPLEX #18 grams Allergies Allergy/AdvReac Type Severity Reaction Status Date / Time codeine [CODEINE] Allergy Unknown Unknown Verified 05/02/23 10:31 allergy reaction guaifenesin [GUAIFENESIN] Allergy Unknown Unknown Verified 05/02/23 10:31 allergy reaction hydrocodone [HYDROCODONE] Allergy Unknown Unknown Verified 05/02/23 10:31 allergy reaction terbutaline [TERBUTALINE] Allergy Unknown Unknown Verified 05/02/23 10:31 allergy reaction PFSH PFS Disclaimer: The information contained in this section may have been updated after the patient was seen, as this information can be updated by other users. Medical History (Updated 05/02/23 @ 14:07 by Luís Jacob MD) Abnormal ankle brachial index (OLENA) Abnormal result of cardiovascular function study Allergic rhinitis Asthma Asthma-chronic obstructive pulmonary disease overlap syndrome Claudication COPD (chronic obstructive pulmonary disease) Daytime somnolence Dizziness Dyspnea Dyspnea on exertion Family history of asthma Hilar lymphadenopathy History of asthma Mass of colon Nodule of left lung PAC (premature atrial contraction) Post-op pain Pulmonary emphysema Radial artery thrombosis Restless sleeper Smoking greater than 30 pack years Solitary pulmonary nodule Tobacco abuse Tobacco abuse counseling Typical angina Wrist pain, right Surgical History History of appendectomy History of heart artery stent History of tubal ligation Family History Other COPD (chronic obstructive pulmonary disease) Lung cancer Lung disease PAD (peripheral artery disease) Social History Smoking Status: Current every day smoker tobacco type: cigarettes packs per day: 2 second hand exposure: No alcohol intake: former substance use type: marijuana current occupational status: other Travel in the last 8 weeks: None household members: children housing: apartment number of children: 3 caffeine: Yes ROS Obtained: Yes All systems reviewed & no additional complaints except as documented Physical Exam General General appearance: alert Respiratory Respiratory exam: Present normal lung sounds bilaterally Cardiovascular Cardiovascular exam: Present regular rate Abdominal Exam Abdominal exam: Present soft and tenderness (Lower abdominal tenderness no rebound or guarding or masses felt) Neurological Exam Neurological exam: Present alert Medical Decision Making Sarkis Inquiry Pt receiving controlled substance: No Vital Signs: 05/02/23 10:03 05/02/23 10:30 05/02/23 11:00 Temperature 97.7 F Temperature Source Oral Pulse Rate 55 L 63 Pulse Rate [Right Brachial] 60 Respiratory Rate 18 Blood Pressure 140/65 163/90 H Blood Pressure [Right Arm] 164/83 H Blood Pressure Mean 94 100 Blood Pressure Mean [Right Arm] 110 Blood Pressure Source [Right Arm] Automatic Cuff Blood Pressure Position [Right Arm] Sitting 02 Sat by Pulse Oximetry 99 97 98 Oxygen Delivery Method Room Air 05/02/23 11:31 05/02/23 12:30 Temperature Temperature Source Pulse Rate 55 L 65 Pulse Rate [Right Brachial] Respiratory Rate 20 Blood Pressure 127/66 91/64 L Blood Pressure [Right Arm] Blood Pressure Mean 90 Blood Pressure Mean [Right Arm] Blood Pressure Source [Right Arm] Blood Pressure Position [Right Arm] 02 Sat by Pulse Oximetry 96 98 Oxygen Delivery Method Room Air Lab Data Lab results reviewed: Yes I reviewed the patient's lab results. Lab Results 05/02/23 11:11: WBC 10.0, RBC 4.70, Hgb 15.2, Hct 44.8, MCV 95.3, MCH 32.3 H, MCHC 33.9, RDW 13.1, Plt Count 333, MPV 7.5, Neut % (Auto) 76.3, Lymph % (Auto) 15.3, [place] % (Auto) 5.0, Eos % (Auto) 3.2, Baso % (Auto) 0.2, Neut # (Auto) 7.6, Lymph # (Auto) 1.5, [place] # (Auto) 0.5, Eos # (Auto) 0.3, Baso # (Auto) 0.0, Sodium 132 L, Potassium 4.5, Chloride 101, Carbon Dioxide 26, Anion Gap 9.5, BUN 5 L, Creatinine 0.60, Estimated Creat Clear 89, Estimated GFR 105, Est GFR (Af ricmac Amer) 127, Glucose 90, Calcium 9.1, Total Bilirubin 0.8, AST 34, ALT 15, Alkaline Phosphatase 43, Total Protein 7.2, Albumin 4.2, Globulin 3.0, Albumin/Globulin Ratio 1.4 05/02/23 11:11 05/02/23 11:11 Orders (Tests/Meds): ED MEDICATIONS Discontinued Medications Generic Name Dose Route Start Last Admin Trade Name Freq PRN Reason Stop Dose Admin Lactated Ringer's 1,000 mls @ 999 mls/hr 05/02/23 10:30 05/02/23 11:14 Lactated Ringer's 1000 Ml Bag IV 05/02/23 11:30 999 mls/hr .Q1H1M JARON Administration Iopamidol 75 ml 05/02/23 12:07 05/02/23 12:08 Iopamidol-370 (76%);100ml Bottle IV 05/02/23 12:08 75 ml ONCE ONE Administration Sodium Chloride 10 ml 05/02/23 12:07 05/02/23 12:08 Sodium Chloride 0.9% 10ml Syr (Rad Only) IV 05/02/23 12:08 10 ml ONCE ONE Administration ORDERS Category Date Time Status CT abdomen pelvis w con Stat Cat Scan 05/02/23 10:26 Completed CBC w/Auto Diff [Complete Blood Count Auto Diff] Stat Lab 05/02/23 11:11 Completed CMP [Comprehensive Metabolic Panel] Stat Lab 05/02/23 11:11 Completed Medical Decision Narrative: Patient is a 53-year-old sent by [employer] doctor's office for concern for a mass in the pelvis. Differential includes constipation and stool impaction, malignancy which could be GI or related such as ovarian malignancy or colon cancer. Patient will get a CT scan with IV contrast of her abdomen pelvis and will reassess. Reassessment 2:[address] scan performed I personally interpreted which shows no acute abdominal pelvic emergency. There is what appears to be uterine fibroid but no other evidence of colon malignancy or other malignancy. She has been reassured about this we will follow back up with [employer] [facility] doctor to discuss further management of this. Lastly from a colon standpoint she will follow-up with Dr. Chris for an outpatient colonoscopy which was previously scheduled. Critical Care Critical Care Time Critical Care Time: No
[2023-05-02 11:00] VITALS: BP 163/90; PULSE 63; O2SAT 98
[2023-05-02] MEDS: LACTATED RINGERS 1000ML 1,000 ML 999 ML IV (11:14)
[2023-05-02 11:23] LABS: Basophils % 0.2 % (0.1-2.0); Eosinophils # 0.3 K/mm3 (0.0-0.4); Eosinophils % 3.2 % (0.1-12.0); Hematocrit 44.8 % (37.0-47.0); Hemoglobin 15.2 g/dL (12.2-16.2); Lymphocytes # 1.5 K/mm3 (0.7-4.5); Lymphocytes % 15.3 % (10-50); Mean Corpuscular HGB Conc 33.9 g/dL (31.8-35.4); Mean Corpuscular Hemoglobin 32.3 pg (27.0-31.2); Mean Corpuscular Volume 95.3 fl (81-99); Mean Platelet Volume 7.5 fl (7.4-10.4); Monocytes # 0.5 K/mm3 (0.1-1.0); Neutrophils # 7.6 K/mm3 (1.8-7.8); Neutrophils % 76.3 % (37.0-80.0); Platelet Count 333 K/mm3 (142-424); Red Cell Distribution Width 13.1 % (11.5-17.5)
[2023-05-02 11:31] VITALS: BP 127/66; PULSE 55; RESP 20; O2SAT 96
--- NOTE | 2023-05-02 11:41 | PC.NURSE ---
Rounded on pt. No needs voiced. Visitor at BS and call light within reach.
[2023-05-02 11:46] LABS: Alanine Aminotransferase 15 U/L (12-78); Albumin Level 4.2 g/dl (3.5-5.0); Albumin/Globulin Ratio 1.4 (1.1-1.8); Alkaline Phosphatase 43 U/L (38-126); Anion Gap 9.5 mEq/L (5-15); Aspartate Amino Transferase 34 U/L (14-36); Bilirubin,Total 0.8 mg/dl (0.2-1.3); Blood Urea Nitrogen 5 mg/dl (7-17); Calcium 9.1 mg/dl (8.4-10.2); Carbon Dioxide 26 mmol/L (22.0-30.0); Chloride 101 mmol/L (98-107); Creatinine Clearance Estimated 89 mL/min (50-200); Estimated Glomerular Filt Rate 105 ml/min (>60); GFR (African American) 127 ML/MIN (>60); Glucose 90 mg/dl (74-100); Potassium 4.5 mmoL/L (3.5-5.1); Sodium 132 mmol/L (136-145); Total Protein,Serum 7.2 g/dl (6.3-8.2)
[2023-05-02] MEDS: SODIUM CHLORIDE 0.9% 10ML SYR (RAD ONLY) 10 ML IV (12:08)
[2023-05-02] MEDS: IOPAMIDOL-370 (76%);100ML BOTTLE 75 ML IV (12:08)
[2023-05-02 12:30] VITALS: BP 91/64; PULSE 65; O2SAT 98
--- NOTE | 2023-05-02 13:36 | PC.NURSE ---
Pt asked for IV to be removed. Removed IV w/o complications
[2023-05-02 14:21] VITALS: BP 137/82; PULSE 64; RESP 18; TEMP 36.5; O2SAT 94
== END 2023-05-02 14:22 | disposition home or self-care (01) ==
PROVIDERS: Emergency Provider Student in an Organized Health Care Education/Training Program; PCP Internal Medicine
DX: R10.30 Lower abdominal pain, unspecified (principal); K92.1 Melena; E87.1 Hypo-osmolality and hyponatremia; R19.8 Other specified symptoms and signs involving the digestive system and abdomen; D25.9 Leiomyoma of uterus, unspecified; F17.210 Nicotine dependence, cigarettes, uncomplicated; J44.9 Chronic obstructive pulmonary disease, unspecified; I73.9 Peripheral vascular disease, unspecified
CPT/HCPCS: 74177; 80053; 85025; 96360; 99284; Q9967

== ENCOUNTER 2023-05-09 12:05 | Outpatient (CLI) | payer BC, SELFPAY ==
[2023-05-09 12:29] LABS: Hematocrit 42.7 % (37.0-47.0)
== END 2023-05-09 23:59 ==
LOC: LAB 12:06
PROVIDERS: PCP Internal Medicine; Visit Provider Surgery
DX: D64.9 Anemia, unspecified (principal)
CPT/HCPCS: 36415; 85014; 85018

== ENCOUNTER 2023-05-22 07:06 | Outpatient (CLI) | payer BC, SELFPAY ==
--- NOTE | 2023-05-22 07:07 | CT_ITS ---
FINAL REPORT TECHNIQUE: Axial CT images of the chest were obtained without contrast. Low-dose protocol was utilized. This study was performed with techniques to keep radiation doses as low as reasonably achievable (ALARA). Individualized dose reduction techniques using automated exposure control or adjustment of mA and/or kV according to the patient's size were employed. CLINICAL HISTORY: lung cancer screening CURRENT SMOKER 1.5PPD X43 YEARS COMPARISON: 05/09/2022 FINDINGS: CT CHEST WITHOUT, LOW DOSE SCREENING CT Di Vol: 2.90 mGy DLP: 101.60 mGy*cm There is no axillary, mediastinal, or hilar adenopathy. The heart size is normal. There is no pleural or pericardial effusion. The lung windows show mild emphysema and mild scarring. There is a 5 mm nodule in the right lung apex seen on image 9 and stable. There is a calcified granuloma in the left lower lobe. Limited images of the upper abdomen demonstrate no acute findings.. IMPRESSION: LR Category 2: 12 month follow-up low-dose chest CT is recommended. Reviewed, Interpreted and Dictated by Surendra Tate III, MD Transcribed by Katelin William Authenticated and [facility]
== END 2023-05-22 23:59 ==
LOC: RAD 07:07
PROVIDERS: PCP Internal Medicine; Visit Provider Internal Medicine Pulmonary Disease
DX: F17.210 Nicotine dependence, cigarettes, uncomplicated (principal)
CPT/HCPCS: 71271

== ENCOUNTER 2023-05-28 12:31 | Day surgery (SDC) | payer BC, SELFPAY ==
[2023-05-24 12:49] VITALS: BMI 18.3
[2023-05-28 12:53] VITALS: BP 163/64; PULSE 78; RESP 20; TEMP 36.6; O2SAT 97
--- NOTE | 2023-05-28 12:54 | EXP.ANES.CKL ---
[facility] Disclaimer: The information contained in this section may have been updated after the patient was seen, as this information can be updated by other users. Medical History Mass of colon Asthma-chronic obstructive pulmonary disease overlap syndrome Solitary pulmonary nodule PAC (premature atrial contraction) Dizziness Allergic rhinitis Asthma Wrist pain, right Radial artery thrombosis Post-op pain Typical angina Claudication Abnormal ankle brachial index (OLENA) Abnormal result of cardiovascular function study Hilar lymphadenopathy Tobacco abuse counseling Tobacco abuse Dyspnea on exertion Nodule of left lung History of asthma Family history of asthma Pulmonary emphysema Smoking greater than 30 pack years Restless sleeper Daytime somnolence Dyspnea COPD (chronic obstructive pulmonary disease) Surgical History History of heart artery stent History of tubal ligation History of appendectomy Family History Other COPD (chronic obstructive pulmonary disease) Lung cancer Lung disease PAD (peripheral artery disease) Social History Smoking Status: Current every day smoker tobacco type: cigarettes packs per day: 2 second hand exposure: No alcohol intake: former substance use type: marijuana current occupational status: other Travel in the last 8 weeks: None household members: children housing: apartment number of children: 3 caffeine: Yes [facility] Anesthesia Checklist Patient Identification Patient Identification: Arm Band and Verbal (Name & ) Structural Data Admitted From: Home Planned Operative Procedure/s: EGD/Colonoscopy Consent for Planned Operative Procedure(s) Verified: Yes NPO Status Verified Time NPO: 00:00 Additional verifications Anesthesia Reactions: No Airway Assessment Mallampati Score:: Class I C-Spine Mobility Assessed: Yes TMJ Mobility Assessed: Yes Dentition: Edentulous Neurological Assessment Level of Consciousness: Awake Hx Seizures: No Numbness or tingling in extremities: No Anesthesia Plan Anesthesia Risk discussed: Yes Anesthesia Plan: Verified ASA Class: III Anesthesia Type: MAC
[2023-05-28] MEDS: LACTATED RINGERS 1000ML 1,000 ML 25 ML IV (12:59)
--- NOTE | 2023-05-28 13:04 | HMH.SCOPE ---
Procedure: Date: 05/28/23 Patient Date of :: 1970 Procedure Performed:: Esophagogastroduodenoscopy with biopsy Colonoscopy with polypectomy and biopsy Indications:: Rectal pressure (concern regarding possible rectal mass although not appreciable per CT scan) Melena Weight loss Performing Provider:: John Jimenez MD Referring Provider:: . Sedation:: Monitored anesthesia care Procedure:: After informed consent was obtained the patient was taken to the endoscopy suite. Sedation ensued after the patient was transferred to the left lateral decubitus position. Pulse, blood pressure, and oxygen saturation were monitored throughout the procedure. The endoscope was advanced beyond the duodenal bulb. Retroflexion within the gastric lumen was accomplished. The gastroscope was carefully removed. Digital rectal exam revealed no significant abnormality. The colonoscope was placed in position. The entire colon was evaluated. The colonoscope was carefully removed and the patient was transferred to recovery in stable condition. Please see findings and specimens below for detail. Findings:: Gastroesophageal junction at 40 cm Mild patchy gastritis Fungating anal canal mass Bowel preparation moderate to poor Profound tortuosity Adjacent polyps at 10 cm Specimens:: Antral biopsy Adjacent sessile rectal polyps at 10 cm Multiple biopsies of anal canal mass Recommendations:: Oncologic evaluation pending pathology results Fairly short-term repeat colonoscopy once treatment completed Complications:: No immediate Estimated blood obtained (mL): 1 Colonoscopy Component Colonoscopy Component Was a colonoscopy performed during today's procedure?: Yes Recommended follow up colonoscopy of at least 10 years?: No If no, follow up colonoscopy recommended in ___ years?: (See above) Reason for not recommending >/= 10 yr follow-up interval?: (See above)
[2023-05-28 13:16] LABS: HCG Qualitative, Serum Negative (Negative)
[2023-05-28 13:21] VITALS: O2SAT 97
[2023-05-28 14:24] VITALS: BP 110/63; PULSE 71; RESP 14; TEMP 36.3; O2SAT 98
[2023-05-28 14:34] VITALS: BP 145/62; PULSE 78; RESP 16; O2SAT 97
[2023-05-28 14:47] VITALS: BP 131/71; PULSE 59; RESP 17; O2SAT 98
== END 2023-05-28 14:51 | disposition home or self-care (01) ==
PROVIDERS: PCP Internal Medicine; Visit Provider Surgery
PROC: 0DJ08ZZ Inspection of Upper Intestinal Tract, Via Natural or Artificial Opening Endoscopic (ICD-10-PCS; CPT 43235; principal; 2023-05-28 13:30)
DX: K92.1 Melena (principal); R19.8 Other specified symptoms and signs involving the digestive system and abdomen; R63.4 Abnormal weight loss; K29.50 Unspecified chronic gastritis without bleeding; K56.2 Volvulus; D12.8 Benign neoplasm of rectum; C21.1 Malignant neoplasm of anal canal
CPT/HCPCS: 43239; 45385; 84703; J2704

== ENCOUNTER 2023-06-05 11:42 | Outpatient (CLI) | payer BC, SELFPAY ==
[2023-06-05 12:08] LABS: Basophils # 0.1 K/mm3 (0-0.2); Basophils % 1.2 % (0.1-2.0); Eosinophils # 0.3 K/mm3 (0.0-0.4); Eosinophils % 3.6 % (0.1-12.0); Hematocrit 50.1 % (37.0-47.0); Hemoglobin 15.9 g/dL (12.2-16.2); Lymphocytes % 21.2 % (10-50); Mean Corpuscular HGB Conc 31.7 g/dL (31.8-35.4); Mean Corpuscular Hemoglobin 32.4 pg (27.0-31.2); Mean Corpuscular Volume 102.1 fl (81-99); Mean Platelet Volume 7.6 fl (7.4-10.4); Monocytes # 0.5 K/mm3 (0.1-1.0); Monocytes % 5.8 % (1.7-9.3); Neutrophils # 6.4 K/mm3 (1.8-7.8); Neutrophils % 68.2 % (37.0-80.0); Platelet Count 378 K/mm3 (142-424); Red Blood Count 4.91 M/mm3 (4.20-5.40); Red Cell Distribution Width 13.4 % (11.5-17.5); White Blood Count 9.4 K/mm3 (4.8-10.8)
[2023-06-05 12:46] LABS: Chloride 100 mmol/L (98-107); Potassium 4.6 mmoL/L (3.5-5.1); Sodium 135 mmol/L (136-145)
[2023-06-05 12:48] LABS: Alanine Aminotransferase 15 U/L (12-78); Aspartate Amino Transferase 24 U/L (14-36); Blood Urea Nitrogen 7 mg/dl (7-17); Estimated Glomerular Filt Rate 88 ml/min (>60); GFR (African American) 106 ML/MIN (>60)
[2023-06-05 12:49] LABS: Albumin Level 4.6 g/dl (3.5-5.0); Albumin/Globulin Ratio 1.8 (1.1-1.8); Alkaline Phosphatase 53 U/L (38-126); Anion Gap 8.6 mEq/L (5-15); Bilirubin,Total 0.4 mg/dl (0.2-1.3); Calcium 10.1 mg/dl (8.4-10.2); Carbon Dioxide 31 mmol/L (22.0-30.0); Globulin 2.5 g/dL (1.3-3.2); Glucose 96 mg/dl (74-100); Total Protein,Serum 7.1 g/dl (6.3-8.2)
[2023-06-06 07:33] LABS: HIV Screen 4th Generation wRfx Non Reactive (Non Reactive)
== END 2023-06-05 23:59 ==
LOC: LAB 11:42
PROVIDERS: PCP Internal Medicine; Visit Provider Internal Medicine Medical Oncology
DX: C18.9 Malignant neoplasm of colon, unspecified (principal); C21.0 Malignant neoplasm of anus, unspecified; R63.4 Abnormal weight loss; Z68.1 Body mass index [BMI] 19.9 or less, adult; Z11.4 Encounter for screening for human immunodeficiency virus [HIV]
CPT/HCPCS: 36415; 80053; 85025; 86703; G0432

== ENCOUNTER 2023-07-01 13:17 | Observation (INO) | payer BC, SELFPAY ==
[2023-07-01] VITALS (16 sets, daily range): BP systolic 102–168; BP diastolic 38–115; PULSE 47–84; RESP 16–96; TEMP 36.5–36.7; O2SAT 91–100; BMI 17.1; BMI 17.0
[2023-07-01 14:01] LABS: Alanine Aminotransferase 18 U/L (12-78); Albumin Level 4.4 g/dl (3.5-5.0); Albumin/Globulin Ratio 1.4 (1.1-1.8); Alkaline Phosphatase 55 U/L (38-126); Anion Gap 10.8 mEq/L (5-15); Aspartate Amino Transferase 28 U/L (14-36); Bilirubin,Total 0.3 mg/dl (0.2-1.3); Blood Urea Nitrogen 9 mg/dl (7-17); Calcium 9.8 mg/dl (8.4-10.2); Carbon Dioxide 31 mmol/L (22.0-30.0); Chloride 98 mmol/L (98-107); Creatinine Clearance Estimated 53 mL/min (50-200); Estimated Glomerular Filt Rate 65 ml/min (>60); GFR (African American) 79 ML/MIN (>60); Globulin 3.1 g/dL (1.3-3.2); Glucose 105 mg/dl (74-100); Potassium 4.8 mmoL/L (3.5-5.1); Sodium 135 mmol/L (136-145); Total Protein,Serum 7.5 g/dl (6.3-8.2)
[2023-07-01 14:02] LABS: Basophils # 0.1 K/mm3 (0-0.2); Eosinophils # 0.4 K/mm3 (0.0-0.4); Eosinophils % 3.6 % (0.1-12.0); Hematocrit 49.3 % (37.0-47.0); Hemoglobin 15.6 g/dL (12.2-16.2); Lymphocytes # 2.8 K/mm3 (0.7-4.5); Lymphocytes % 26.3 % (10-50); Mean Corpuscular HGB Conc 31.7 g/dL (31.8-35.4); Mean Corpuscular Hemoglobin 31.7 pg (27.0-31.2); Mean Corpuscular Volume 100.2 fl (81-99); Mean Platelet Volume 7.8 fl (7.4-10.4); Monocytes # 0.6 K/mm3 (0.1-1.0); Neutrophils # 6.6 K/mm3 (1.8-7.8); Neutrophils % 63.2 % (37.0-80.0); Platelet Count 338 K/mm3 (142-424); Red Blood Count 4.92 M/mm3 (4.20-5.40); White Blood Count 10.5 K/mm3 (4.8-10.8)
--- NOTE | 2023-07-01 14:05 | ED_ITS ---
Discharge Plan Disposition Patient Disposition: Xfer Other Condition: Serious Prescriptions Prescriptions: No Action clopidogrel 75 mg tablet 75 mg PO DAILY tramadol 50 mg tablet 50 mg PO TID PRN (Reason: pain) Qty: 90 0RF ipratropium-albuterol 0.5 mg-3 mg(2.5 mg base)/3 mL solution for nebulization 3 ml inhalation QID PRN (Reason: shortness of breath or wheezing) 90 Days Qty: 270 3RF atorvastatin 20 mg tablet See Rx Instructions .ROUTE .COMPLEX Qty: 90 3RF Rx Instructions: TAKE 1 TABLET BY MOUTH ONCE DAILY aspirin 81 mg tablet,delayed release (DR/EC) See Rx Instructions .ROUTE .COMPLEX Qty: 90 3RF Rx Instructions: TAKE ONE TABLET BY MOUTH EVERY DAY FOR HEART DISEASE patient needs to make an appt before anymore refills spironolactone 100 mg tablet See Rx Instructions .ROUTE .COMPLEX Qty: 30 3RF Dose Instruction: TAKE 1 TABLET BY MOUTH ONCE DAILY Rx Instructions: TAKE 1 TABLET BY MOUTH ONCE DAILY budesonide-formoterol [Symbicort] 160-4.5 mcg/actuation HFA aerosol inhaler See Rx Instructions .ROUTE .COMPLEX Qty: 10.2 2RF Dose Instruction: INHALE 2 PUFFS BY MOUTH TWICE A DAY (RINSE MOUTH AFTER USE) Rx Instructions: INHALE 2 PUFFS BY MOUTH TWICE A DAY (RINSE MOUTH AFTER USE) azelastine 137 mcg (0.1 %) aerosol,spray See Rx Instructions .ROUTE .COMPLEX Qty: 30 2RF Dose Instruction: USE 2 SPRAYS IN EACH NOSTRIL AT BEDTIME NIGHTLY Rx Instructions: USE 2 SPRAYS IN EACH NOSTRIL AT BEDTIME NIGHTLY fluticasone propionate 50 mcg/actuation spray,suspension See Rx Instructions .ROUTE .COMPLEX Qty: 16 2RF Dose Instruction: USE 2 SPRAYS IN EACH NOSTRIL DAILY Rx Instructions: USE 2 SPRAYS IN EACH NOSTRIL DAILY montelukast 10 mg tablet See Rx Instructions .ROUTE .COMPLEX Qty: 90 2RF Dose Instruction: TAKE 1 TABLET BY MOUTH ONCE DAILY Rx Instructions: TAKE 1 TABLET BY MOUTH ONCE DAILY metoprolol tartrate 50 mg tablet 50 mg PO BID Qty: 180 1RF albuterol sulfate [Ventolin HFA] 90 mcg/actuation HFA aerosol inhaler See Rx Instructions .ROUTE .COMPLEX Qty: 18 1RF Dose Instruction: INHALE 2 PUFFS BY MOUTH FOUR TIMES A DAY NEEDED FOR SHORTNESS OF BREATH OR WHEEZING Rx Instructions: INHALE 2 PUFFS BY MOUTH FOUR TIMES A DAY NEEDED FOR SHORTNESS OF BREATH OR WHEEZING Referrals Follow up/Referrals: Daniel Corona DO [Primary Care Provider] - See instructions Clinical Impressions Clinical Impression: Acute GI bleeding, Squamous cell carcinoma of rectum Stand Alone Forms Stand Alone Forms: Transfer Record - ED Instructions Patient Instructions: DI for Gastrointestinal Bleeding Discharge ED Provider: Greg Espinoza General Adult HPI <MELONIE Shell - Last Filed: 07/01/23 15:40> General Chief complaint: GI Bleed Stated complaint: rectal bleeding Time Seen by Provider: 07/01/23 14:05 Mode of Arrival: Ambulatory Source of Information: Patient Limitations: No Limitations Description of Symptoms (Recalled from ER Triage Doc. by RN): pt is here today for rectal bleeding that is bright red in nature, pt is currently being seen by dr pemberton for cancer of GI tract and had a recent EGD/Colonoscopy last month with .pt has no complaints other than bleeding and rectal pain History of Present Illness HPI narrative: Patient presents for bright red blood per rectum. Patient has a several month history of GI bleeding weight loss and recently underwent a bidirectional scope by Dr. Chris which diagnosed a fungating anal canal mass that is stage T3 squamous cell carcinoma. Patient has been evaluated by Dr. Pemberton and also referred to radiation oncology at [facility] as well as [facility] in [place]. I believe the plan is for chemoradiation prior to surgery. Patient reports with significant increase in bright red blood per rectum and reports that she has had more than 5 episodes of just clotted red blood today. Patient reports significant amount of rectal pain as well as abdominal bloating. She denies chest pain shortness of breath fever chills hemoptysis hematemesis. Related Data Home Medications Medication Instructions Recorded Confirmed clopidogrel 75 mg tablet 75 mg PO DAILY DAPT 12/05/22 06/13/23 Previous Rx's Medication Instructions Recorded ipratropium 0.5 mg-albuterol 3 mg 3 ml inhalation QID PRN shortness 05/15/22 (2.5 mg base)/3 mL nebulization of breath or wheezing 90 days #270 soln mL aspirin 81 mg tablet,delayed See Rx Instructions .Route 10/15/22 release .COMPLEX DAPT #90 tabs atorvastatin 20 mg tablet See Rx Instructions .Route 10/15/22 .COMPLEX Cholesterol #90 tabs spironolactone 100 mg tablet See Rx Instructions .Route 03/17/23 .COMPLEX #30 tabs azelastine 137 mcg (0.1 %) nasal See Rx Instructions .Route 04/15/23 spray aerosol .COMPLEX #30 mL budesonide-formoterol HFA 160 See Rx Instructions .Route 04/15/23 mcg-4.5 mcg/actuation aerosol .COMPLEX #10.2 grams inhaler (Symbicort) fluticasone propionate 50 See Rx Instructions .Route 05/14/23 mcg/actuation nasal .COMPLEX #16 grams spray,suspension montelukast 10 mg tablet See Rx Instructions .Route 05/14/23 .COMPLEX #90 tabs tramadol 50 mg tablet 50 mg PO TID PRN pain #90 tabs 06/05/23 albuterol sulfate 90 mcg/actuation See Rx Instructions .Route 06/14/23 aerosol inhaler (Ventolin HFA) .COMPLEX #18 grams metoprolol tartrate 50 mg tablet 50 mg PO BID heart . #180 tabs 06/14/23 Allergies Allergy/AdvReac Type Severity Reaction Status Date / Time codeine [CODEINE] Allergy Unknown Unknown Verified 06/13/23 13:03 allergy reaction guaifenesin [GUAIFENESIN] Allergy Unknown Unknown Verified 06/13/23 13:03 allergy reaction hydrocodone [HYDROCODONE] Allergy Unknown Unknown Verified 06/13/23 13:03 allergy reaction terbutaline [TERBUTALINE] Allergy Unknown Unknown Verified 06/13/23 13:03 allergy reaction [facility] <MLEONIE Shell - Last Filed: 07/01/23 15:40> [facility] Disclaimer: The information contained in this section may have been updated after the patient was seen, as this information can be updated by other users. Medical History Asthma-chronic obstructive pulmonary disease overlap syndrome Solitary pulmonary nodule PAC (premature atrial contraction) Dizziness Allergic rhinitis Asthma Wrist pain, right Radial artery thrombosis Post-op pain Typical angina Claudication Abnormal ankle brachial index (OLENA) Abnormal result of cardiovascular function study Hilar lymphadenopathy Tobacco abuse counseling Tobacco abuse Dyspnea on exertion Nodule of left lung History of asthma Family history of asthma Pulmonary emphysema Smoking greater than 30 pack years Restless sleeper Daytime somnolence Dyspnea COPD (chronic obstructive pulmonary disease) Surgical History History of colonoscopy History of heart artery stent History of tubal ligation History of appendectomy Family History Other COPD (chronic obstructive pulmonary disease) Lung cancer Lung disease PAD (peripheral artery disease) Social History Smoking Status: Current every day smoker tobacco type: cigarettes packs per day: 2 second hand exposure: No alcohol intake: former substance use type: marijuana current occupational status: other Travel in the last 8 weeks: None household members: children housing: apartment number of children: 3 caffeine: Yes <MELONIE Shell - Last Filed: 07/01/23 15:40> ROS Obtained: Yes Systems reviewed as appropriate & no additional complaints except as documented Physical Exam <MELONIE Shell - Last Filed: 07/01/23 15:40> General General appearance: alert and in no apparent distress Respiratory Respiratory exam: Present normal lung sounds bilaterally; Absent respiratory distress Cardiovascular Cardiovascular exam: Present regular rate, normal rhythm, normal heart sounds, +S1 and +S2 Abdominal Exam Abdominal exam: Present soft, tenderness (Patient is mildly diffusely tender to palpation) and normal bowel sounds; Absent guarding or rebound Rectal Exam Rectal exam: Present normal rectal tone, heme (+) stool (There appears to be fresh minimal amount of blood in the rectal vault), hemorrhoids (1 medium sized nonthrombosed external hemorrhoid.), mass (A irregular shaped mass felt approximately 2 cm anteriorly from the anal opening.) and tenderness (Patient is exquisitely tender when attempting to do a digital rectal exam) Neurological Exam Neurological exam: Present alert and oriented X3 Psychiatric Psychiatric exam: Present normal affect and normal mood Skin Skin exam: Present warm, dry and normal color Lymphatic Lymphatic Findings: no adenopathy Medical Decision Making <MELONIE Shell - Last Filed: 07/01/23 15:40> Medical Records Medical records reviewed: Yes I reviewed the patient's medical records. Sarkis Inquiry Pt receiving controlled substance: No Vital Signs: 07/01/23 13:17 07/01/23 13:31 07/01/23 14:00 Temperature 97.9 F Temperature Source Oral Pulse Rate 84 62 Pulse Rate [Right Radial] 80 Respiratory Rate 20 Blood Pressure 168/115 H 130/87 Blood Pressure [Right Arm] 147/105 H Blood Pressure Mean 132 101 Blood Pressure Mean [Right Arm] 119 02 Sat by Pulse Oximetry 98 98 97 Oxygen Delivery Method Room Air 07/01/23 15:01 07/01/23 15:31 Temperature Temperature Source Pulse Rate 58 L 64 Pulse Rate [Right Radial] Respiratory Rate Blood Pressure 159/56 H 130/38 L Blood Pressure [Right Arm] Blood Pressure Mean 84 Blood Pressure Mean [Right Arm] 02 Sat by Pulse Oximetry 98 100 Oxygen Delivery Method Room Air Lab Data Lab results reviewed: Yes I reviewed the patient's lab results. Lab Results 07/01/23 13:35: WBC 10.5, RBC 4.92, Hgb 15.6, Hct 49.3 H, MCV 100.2 H, MCH 31.7 H, MCHC 31.7 L, RDW 13.0, Plt Count 338, MPV 7.8, Neut % (Auto) 63.2, Lymph % (Auto) 26.3, Calloway % (Auto) 6.0, Eos % (Auto) 3.6, Baso % (Auto) 1.0, Neut # (Auto) 6.6, Lymph # (Auto) 2.8, Calloway # (Auto) 0.6, Eos # (Auto) 0.4, Baso # (Auto) 0.1, PT 10.6, INR 0.98, Sodium 135 L, Potassium 4.8, Chloride 98, Carbon Dioxide 31 H, Anion Gap 10.8, BUN 9, Creatinine 0.90, Estimated Creat Clear 53, Estimated GFR 65, Est GFR ( Amer) 79, Glucose 105 H, Calcium 9.8, Magnesium 1.6, Total Bilirubin 0.3, AST 28, ALT 18, Alkaline Phosphatase 55, Total Protein 7.5, Albumin 4.4, Globulin 3.1, Albumin/Globulin Ratio 1.4 07/01/23 14:05: Urine Color Yellow, Urine Appearance Clear, Urine pH 6.0, Ur Specific [place] 1.015, Urine Protein Negative, Urine Glucose (UA) Negative, Urine Ketones Trace, Urine Blood 1+, Urine Nitrate Negative, Urine Bilirubin Negative, Urine Urobilinogen 1.0, Ur Leukocyte Esterase Negative, Urine RBC None, Urine WBC Occasional, Ur Squamous Epith Cells 3-5, Urine Bacteria None 07/01/23 14:30: Stool Occult Blood Positive A 07/01/23 14:35: Blood Type A Positive, Antibody Screen Negative 07/01/23 13:35 07/01/23 13:35 Orders (Tests/Meds): ED MEDICATIONS Generic Name Dose Route Start Last Admin Trade Name Freq PRN Reason Stop Dose Admin Sodium Chloride 10 ml 07/01/23 13:46 Sodium Chloride 0.9% 10ml Flush Syringe IV 07/31/23 13:45 NEEDED PRN Maintain IV Site Discontinued Medications Generic Name Dose Route Start Last Admin Trade Name Freq PRN Reason Stop Dose Admin Acetaminophen 1,000 mg 07/01/23 14:45 07/01/23 14:53 Acetaminophen 1,000mg/100ml Vial IV 07/01/23 14:46 1,000 mg ONCE ONE Administration Lactated Ringer's 1,000 mls @ 999 mls/hr 07/01/23 14:25 07/01/23 14:44 Lactated Ringer's 1000 Ml Bag IV 07/01/23 15:25 999 mls/hr .Q1H1M ONE Administration Iopamidol 100 ml 07/01/23 15:27 07/01/23 15:29 Iopamidol-370 (76%);100ml Bottle IV 07/01/23 15:28 100 ml ONCE ONE Administration Ketorolac Tromethamine 15 mg 07/01/23 14:45 07/01/23 14:53 Ketorolac 30mg/Ml Vial IV 07/01/23 14:46 15 mg ONCE ONE Administration Sodium Chloride 10 ml 07/01/23 15:27 07/01/23 15:29 Sodium Chloride 0.9% 10ml Syr (Rad Only) IV 07/01/23 15:28 10 ml ONCE ONE Administration Sodium Chloride 50 ml 07/01/23 15:27 07/01/23 15:28 0.9 % Sodium Chloride 50 Ml Vial IV 07/01/23 15:28 50 ml ONCE ONE Administration ORDERS Category Date Time Status Type and Screen Stat BBK 07/01/23 14:[address] angio abdomen pelvis Stat Cat Scan 07/01/23 14:39 Taken CMP [Comprehensive Metabolic Panel] Stat Lab 07/01/23 13:35 Completed Complete Blood Count Auto Diff Stat Lab 07/01/23 13:35 Completed INR [Prothrombin Time INR] Stat Lab 07/01/23 13:35 Completed Lactic Acid Stat Lab 07/01/23 15:50 Received Magnesium Stat Lab 07/01/23 13:35 Completed Occult Blood,Stool Stat Lab 07/01/23 14:30 Completed UA [Urinalysis and Microscopic] Stat Lab 07/01/23 14:05 Completed Medical Decision Narrative: In summary patient is a 83-year-old female who presents to the emergency department for evaluation of GI bleeding. Patient patient recently diagnosed with squamous cell carcinoma of the rectum and is followed by Dr. Pemberton and has been referred to [facility] in [place] as well as [facility] for radiation oncology. Patient is hemodynamically stable upon arrival, afebrile. Physical exam is remarkable for a very painful rectum upon digital examination with a anterior rectal mass felt on digital exam. There is fresh blood in the rectal vault but only a trace amount currently.. Differential diagnosis includes bleeding mass versus other GI bleed. Initial workup will be conducted with hematologic labs CT scan of the abdomen pelvis. Initial interventions include crystalloid bolus Toradol and Tylenol as patient has multiple allergies/intolerances to opiates. Initial workup reviewed by me shows a stable H&H and remainder of her laboratory investigations are nonactionable.. Given her significant comorbidities including being on Plavix along with known rectal mass that is received no treatment I went ahead and discussed patient management with the transfer center at [facility]. has accepted the patient in transfer pending bed assignment at 1538. <Greg Espinoza, DO - Last Filed: 07/01/23 16:10> Vital Signs: 07/01/23 13:17 07/01/23 13:31 07/01/23 14:00 Temperature 97.9 F Temperature Source Oral Pulse Rate 84 62 Pulse Rate [Right Radial] 80 Respiratory Rate 20 Blood Pressure 168/115 H 130/87 Blood Pressure [Right Arm] 147/105 H Blood Pressure Mean 132 101 Blood Pressure Mean [Right Arm] 119 02 Sat by Pulse Oximetry 98 98 97 Oxygen Delivery Method Room Air 07/01/23 15:01 07/01/23 15:31 Temperature Temperature Source Pulse Rate 58 L 64 Pulse Rate [Right Radial] Respiratory Rate Blood Pressure 159/56 H 130/38 L Blood Pressure [Right Arm] Blood Pressure Mean 84 Blood Pressure Mean [Right Arm] 02 Sat by Pulse Oximetry 98 100 Oxygen Delivery Method Room Air Lab Data Lab Results 07/01/23 13:35: WBC 10.5, RBC 4.92, Hgb 15.6, Hct 49.3 H, MCV 100.2 H, MCH 31.7 H, MCHC 31.7 L, RDW 13.0, Plt Count 338, MPV 7.8, Neut % (Auto) 63.2, Lymph % (Auto) 26.3, Calloway % (Auto) 6.0, Eos % (Auto) 3.6, Baso % (Auto) 1.0, Neut # (Auto) 6.6, Lymph # (Auto) 2.8, Calloway # (Auto) 0.6, Eos # (Auto) 0.4, Baso # (Auto) 0.1, PT 10.6, INR 0.98, Sodium 135 L, Potassium 4.8, Chloride 98, Carbon Dioxide 31 H, Anion Gap 10.8, BUN 9, Creatinine 0.90, Estimated Creat Clear 53, Estimated GFR 65, Est GFR ( Amer) 79, Glucose 105 H, Calcium 9.8, Magnesium 1.6, Total Bilirubin 0.3, AST 28, ALT 18, Alkaline Phosphatase 55, Total Protein 7.5, Albumin 4.4, Globulin 3.1, Albumin/Globulin Ratio 1.4 07/01/23 14:05: Urine Color Yellow, Urine Appearance Clear, Urine pH 6.0, Ur Specific [place] 1.015, Urine Protein Negative, Urine Glucose (UA) Negative, Urine Ketones Trace, Urine Blood 1+, Urine Nitrate Negative, Urine Bilirubin Negative, Urine Urobilinogen 1.0, Ur Leukocyte Esterase Negative, Urine RBC None, Urine WBC Occasional, Ur Squamous Epith Cells 3-5, Urine Bacteria None 07/01/23 14:30: Stool Occult Blood Positive A 07/01/23 14:35: Blood Type A Positive, Antibody Screen Negative Orders (Tests/Meds): ED MEDICATIONS Generic Name Dose Route Start Last Admin Trade Name Freq PRN Reason Stop Dose Admin Sodium Chloride 10 ml 07/01/23 13:46 Sodium Chloride 0.9% 10ml Flush Syringe IV 07/31/23 13:45 NEEDED PRN Maintain IV Site Discontinued Medications Generic Name Dose Route Start Last Admin Trade Name Freq PRN Reason Stop Dose Admin Acetaminophen 1,000 mg 07/01/23 14:45 07/01/23 14:53 Acetaminophen 1,000mg/100ml Vial IV 07/01/23 14:46 1,000 mg ONCE ONE Administration Lactated Ringer's 1,000 mls @ 999 mls/hr 07/01/23 14:25 07/01/23 14:44 Lactated Ringer's 1000 Ml Bag IV 07/01/23 15:25 999 mls/hr .Q1H1M ONE Administration Iopamidol 100 ml 07/01/23 15:27 07/01/23 15:29 Iopamidol-370 (76%);100ml Bottle IV 07/01/23 15:28 100 ml ONCE ONE Administration Ketorolac Tromethamine 15 mg 07/01/23 14:45 07/01/23 14:53 Ketorolac 30mg/Ml Vial IV 07/01/23 14:46 15 mg ONCE ONE Administration Sodium Chloride 10 ml 07/01/23 15:27 07/01/23 15:29 Sodium Chloride 0.9% 10ml Syr (Rad Only) IV 07/01/23 15:28 10 ml ONCE ONE Administration Sodium Chloride 50 ml 07/01/23 15:27 07/01/23 15:28 0.9 % Sodium Chloride 50 Ml Vial IV 07/01/23 15:28 50 ml ONCE ONE Administration ORDERS Category Date Time Status Type and Screen Stat BBK 07/01/23 14:[address] angio abdomen pelvis Stat Cat Scan 07/01/23 14:39 Taken CMP [Comprehensive Metabolic Panel] Stat Lab 07/01/23 13:35 Completed Complete Blood Count Auto Diff Stat Lab 07/01/23 13:35 Completed INR [Prothrombin Time INR] Stat Lab 07/01/23 13:35 Completed Lactic Acid Stat Lab 07/01/23 15:50 Received Magnesium Stat Lab 07/01/23 13:35 Completed Occult Blood,Stool Stat Lab 07/01/23 14:30 Completed UA [Urinalysis and Microscopic] Stat Lab 07/01/23 14:05 Completed Medical Decision Narrative: In summary patient is a 83-year-old female who presents to the emergency department for evaluation of GI bleeding. Patient patient recently diagnosed with squamous cell carcinoma of the rectum and is followed by Dr. Pemberton and has been referred to [facility] in [place] as well as [facility] for radiation oncology. Patient is hemodynamically stable upon arrival, afebrile. Physical exam is remarkable for a very painful rectum upon digital examination with a anterior rectal mass felt on digital exam. There is fresh blood in the rectal vault but only a trace amount currently.. Differential diagnosis includes bleeding mass versus other GI bleed. Initial workup will be conducted with hematologic labs CT scan of the abdomen pelvis. Initial interventions include crystalloid bolus Toradol and Tylenol as patient has multiple allergies/intolerances to opiates. Initial workup reviewed by me shows a stable H&H and remainder of her laboratory investigations are nonactionable.. Given her significant comorbidities including being on Plavix along with known rectal mass that is received no treatment I went ahead and discussed patient management with the transfer center at [facility]. has accepted the patient in transfer pending bed assignment at 1538. I was consulted by the SANTIAGO, and we discussed the complexity of the problems being addressed. I approved the treatment and management plan for this patient's care in the Emergency Department, thus performing a substantive portion of the medical decision making. Greg Espinoza, DO Critical Care <MELONIE Shell - Last Filed: 07/01/23 15:40> Critical Care Time Critical Care Time: No
--- NOTE | 2023-07-01 14:12 | PC.NURSE ---
Attila WILHELM is with pt
[2023-07-01 14:14] LABS: Microscopic, Urine URINE MICROSCOPIC (MICROSCOPIC)
[2023-07-01 14:18] LABS: Appearance,Urine CLEAR (Clear); Bilirubin,Urine Negative (Negative); Blood, Urine 1+ (Negative); Color,Urine YELLOW (Yellow); Glucose,Urine (UA) Negative (Negative); Ketones,Urine TRACE (Negative); Leukocyte Esterase,Urine Negative (Negative); Nitrate,Urine Negative (Negative); Protein,Urine Negative (Negative); Specific Gravity, Urine 1.015 (1.005-1.030)
--- NOTE | 2023-07-01 14:39 | CT_ITS ---
FINAL REPORT TECHNIQUE: Pre-and postcontrast images of the abdomen were performed by computed tomography. Extensive 3-D reconstruction images were performed. A CTA was performed. This study was performed with techniques to keep radiation doses as low as reasonably achievable (ALARA). Individualized dose reduction techniques using automated exposure control or adjustment of mA and/or kV according to the patient's size were employed. CLINICAL HISTORY: GI bleed, known colon cancer COMPARISON: None FINDINGS: CTA ABDOMEN AND PELVIS: CT of the abdomen and pelvis reveals mild diffuse calcified plaques present in the abdominal aorta and iliac arteries. There is mild scarring present in the lung bases. The gallbladder is present. The liver, spleen, kidneys, pancreas, and adrenal glands appear unremarkable. There is a large amount of stool present in the colon. The uterus is retroverted. No mass or free fluid is identified. CTA of the abdomen and pelvis reveals that the celiac and superior mesenteric arteries are patent without significant stenosis. The ELENA is patent as well. There is a single right renal artery and dual left renal arteries without significant stenosis. Bilateral iliac artery stents are present, and the segments that are stented appear patent. The common and internal iliac arteries are patent bilaterally. No source for a GI bleed is seen on this examination. IMPRESSION: A large amount of stool is present in the colon. Bilateral iliac arterial stents are present, and the segments that are stented appear patent. No major vessel narrowing or occlusion is present in the abdomen or pelvis. No site for a gastrointestinal bleed is noted on this exam. Reviewed, Interpreted and Dictated by Power Cerna MD Transcribed by Richelle Cabral Authenticated and [facility]
[2023-07-01 14:40] LABS: INR 0.98 (0.9-1.1); Prothrombin Time 10.6 seconds (10.1-12.5)
[2023-07-01 14:44] LABS: Occult Blood,Stool Positive (Negative)
[2023-07-01 14:44] LABS: Magnesium 1.6 mg/dl (1.6-2.3)
[2023-07-01] MEDS: LACTATED RINGERS 1000ML 1,000 ML 999 ML IV (14:44)
[2023-07-01] MEDS: ACETAMINOPHEN 1,000MG/100ML VIAL 1000 MG IV (14:53)
[2023-07-01] MEDS: KETOROLAC 30MG/ML VIAL 15 MG IV (14:53)
--- NOTE | 2023-07-01 15:05 | PC.NURSE ---
called [facility] about transferring this pt. [facility] advised they would call us back to speak with the doctor
--- NOTE | 2023-07-01 15:11 | PC.NURSE ---
Pt provided with warm blanket. Call light within reach.
[2023-07-01 15:13] LABS: WBC,Urine Occasional #/hpf (0-3)
--- NOTE | 2023-07-01 15:18 | PC.NURSE ---
Radiology taking pt to CT scan
[2023-07-01] MEDS: 0.9 % SODIUM CHLORIDE 50 ML VIAL IV (15:28)
[2023-07-01] MEDS: SODIUM CHLORIDE 0.9% 10ML SYR (RAD ONLY) 10 ML IV (15:29)
[2023-07-01] MEDS: IOPAMIDOL-370 (76%);100ML BOTTLE 100 ML IV (15:29)
--- NOTE | 2023-07-01 15:30 | PC.NURSE ---
Pt returned to room from RAD
--- NOTE | 2023-07-01 15:34 | PC.NURSE ---
Attila IBANEZ speaking with [facility] about possible transfer
--- NOTE | 2023-07-01 15:38 | PC.NURSE ---
[facility] called back and advised that the pt would be accepted with a bed pending. Dr Carmen was the accepting
[2023-07-01 16:09] LABS: Lactic Acid 1.1 mmol/L (0.7-2.1)
--- NOTE | 2023-07-01 17:02 | PC.NURSE ---
Rounded on pt to see if they had any needs. pt had no needs at this time
--- NOTE | 2023-07-01 17:31 | PC.WOUNDNOTE ---
Called [facility] back to check on the bed for this pt and they advised that they had several pending discharges and would call us as soon as they got situated for our pt to be transferred to them
--- NOTE | 2023-07-01 19:15 | PC.NURSE ---
pt is resting with her eyes closed. call okeefe in reach.
--- NOTE | 2023-07-01 19:45 | PC.NURSE ---
contacted [facility], still waiting on bed assignment
--- NOTE | 2023-07-01 20:10 | PC.NURSE ---
Veronica WILHELM is on the phone with the hospitalist for possible admission while waiting for her bed at [facility]
--- NOTE | 2023-07-01 20:14 | PC.NURSE ---
[facility] notified that the pt has been accepted by the hospitalist and that we need a bed for admission.
--- NOTE | 2023-07-01 20:17 | EXP.HPDC ---
General Admission date:: 07/01/23 Discharge date: 07/02/23 *Admission Date: 07/01/23 *Chief complaint: Gi bleed *History of present illness: Patient has a several month history of GI bleeding weight loss and recently underwent a bidirectional scope by Dr. Chris which diagnosed a fungating anal canal mass that is stage T3 squamous cell carcinoma. Patient has been evaluated by Dr. Pemberton and also referred to radiation oncology at [facility] as well as [facility] in [place]. I believe the plan is for chemoradiation prior to surgery. Patient reports with significant increase in bright red blood per rectum and reports that she has had more than 5 episodes of just clotted red blood today. Patient reports significant amount of rectal pain as well as abdominal bloating. She denies chest pain shortness of breath fever chills hemoptysis hematemesis. [facility] Disclaimer: The information contained in this section may have been updated after the patient was seen, as this information can be updated by other users. Medical History Asthma-chronic obstructive pulmonary disease overlap syndrome Solitary pulmonary nodule PAC (premature atrial contraction) Dizziness Allergic rhinitis Asthma Wrist pain, right Radial artery thrombosis Post-op pain Typical angina Claudication Abnormal ankle brachial index (OLENA) Abnormal result of cardiovascular function study Hilar lymphadenopathy Tobacco abuse counseling Tobacco abuse Dyspnea on exertion Nodule of left lung History of asthma Family history of asthma Pulmonary emphysema Smoking greater than 30 pack years Restless sleeper Daytime somnolence Dyspnea COPD (chronic obstructive pulmonary disease) Surgical History History of colonoscopy History of heart artery stent History of tubal ligation History of appendectomy Family History Other COPD (chronic obstructive pulmonary disease) Lung cancer Lung disease PAD (peripheral artery disease) Social History (Updated 07/01/23 @ 21:29 by Dori Cisneros RN) Smoking Status: Current every day smoker tobacco type: cigarettes packs per day: 2 second hand exposure: No alcohol intake: former substance use type: marijuana current occupational status: unemployed and other Travel in the last 8 weeks: None household members: children housing: apartment number of children: 3 caffeine: Yes Review of Systems Review of Systems Review of systems:: pertinent systems reviewed and negative unless documented below Exam Data for Last 24 hours Vital signs and Labs for Last 24 Hours: Temp Pulse Resp BP Pulse Ox O2 Del Method 97.9 F 53 L 20 145/69 H 97 Room Air 07/01/23 13:17 07/01/23 19:00 07/01/23 13:17 07/01/23 19:00 07/01/23 19:00 07/01/23 18:00 Laboratory Results - last 24 hr 07/01/23 13:35: WBC 10.5, RBC 4.92, Hgb 15.6, Hct 49.3 H, MCV 100.2 H, MCH 31.7 H, MCHC 31.7 L, RDW 13.0, Plt Count 338, MPV 7.8, Neut % (Auto) 63.2, Lymph % (Auto) 26.3, [place] % (Auto) 6.0, Eos % (Auto) 3.6, Baso % (Auto) 1.0, Neut # (Auto) 6.6, Lymph # (Auto) 2.8, [place] # (Auto) 0.6, Eos # (Auto) 0.4, Baso # (Auto) 0.1, PT 10.6, INR 0.98, Sodium 135 L, Potassium 4.8, Chloride 98, Carbon Dioxide 31 H, Anion Gap 10.8, BUN 9, Creatinine 0.90, Estimated Creat Clear 53, Estimated GFR 65, Est GFR ( Amer) 79, Glucose 105 H, Calcium 9.8, Magnesium 1.6, Total Bilirubin 0.3, AST 28, ALT 18, Alkaline Phosphatase 55, Total Protein 7.5, Albumin 4.4, Globulin 3.1, Albumin/Globulin Ratio 1.4 07/01/23 14:05: Urine Color Yellow, Urine Appearance Clear, Urine pH 6.0, Ur Specific [place] 1.015, Urine Protein Negative, Urine Glucose (UA) Negative, Urine Ketones Trace, Urine Blood 1+, Urine Nitrate Negative, Urine Bilirubin Negative, Urine Urobilinogen 1.0, Ur Leukocyte Esterase Negative, Urine RBC None, Urine WBC Occasional, Ur Squamous Epith Cells 3-5, Urine Bacteria None 07/01/23 14:30: Stool Occult Blood Positive A 07/01/23 14:35: Blood Type A Positive, Antibody Screen Negative 07/01/23 15:50: Lactate 1.1 I & O for Last 24 hours: Intake & Output 06/28/23 06/29/23 06/30/23 07/01/23 23:59 23:59 23:59 23:59 Weight 46.72 kg Constitutional Constitutional: no acute distress *Routine HEENT Exam Head: Present normocephalic Eye: Present EOMI and PERRL ENT: Present mucous membranes moist *Routine Neck Exam Neck: Present supple; Absent lymphadenopathy *Routine Respiratory Exam Respiratory: Present CTA bilaterally *Routine Cardiovascular Exam Cardiovascular: Present RRR *Routine Abdominal Exam Abdominal: Present soft and normoactive bowel sounds; Absent tenderness *Routine Rectal Exam Rectal:: deferred *Routine Genitalia Exam Genitalia:: deferred *Routine Extremities Exam Extremities: Absent cyanosis, clubbing or edema *Routine Skin Exam Skin: Present warm; Absent rash *Routine Neurological Exam Neurological: Present alert and oriented X3 Meds Home Medications and Allergies Home Medications Medication Instructions Recorded Confirmed Type ipratropium 0.5 mg-albuterol 3 mg 3 ml inhalation QID PRN shortness 05/15/22 07/01/23 Rx (2.5 mg base)/3 mL nebulization of breath or wheezing 90 days #270 soln mL aspirin 81 mg tablet,delayed See Rx Instructions .Route 10/15/22 07/01/23 Rx release .COMPLEX DAPT #90 tabs atorvastatin 20 mg tablet See Rx Instructions .Route 10/15/22 07/01/23 Rx .COMPLEX Cholesterol #90 tabs clopidogrel 75 mg tablet 75 mg PO DAILY DAPT 12/05/22 07/01/23 History azelastine 137 mcg (0.1 %) nasal See Rx Instructions .Route 04/15/23 07/01/23 Rx spray aerosol .COMPLEX #30 mL budesonide-formoterol HFA 160 See Rx Instructions .Route 04/15/23 07/01/23 Rx mcg-4.5 mcg/actuation aerosol .COMPLEX #10.2 grams inhaler (Symbicort) fluticasone propionate 50 See Rx Instructions .Route 05/14/23 07/01/23 Rx mcg/actuation nasal .COMPLEX #16 grams spray,suspension montelukast 10 mg tablet See Rx Instructions .Route 05/14/23 07/01/23 Rx .COMPLEX #90 tabs tramadol 50 mg tablet 50 mg PO TID PRN pain #90 tabs 06/05/23 07/01/23 Rx albuterol sulfate 90 mcg/actuation See Rx Instructions .Route 06/14/23 07/01/23 Rx aerosol inhaler (Ventolin HFA) .COMPLEX #18 grams metoprolol tartrate 50 mg tablet 50 mg PO BID heart . #180 tabs 06/14/23 07/01/23 Rx esomeprazole magnesium 20 mg 20 mg PO DAILY 07/01/23 07/01/23 History capsule,delayed release (Nexium 24HR) ferrous sulfate 325 mg (65 mg 325 mg PO BID 07/01/23 07/01/23 History iron) tablet (FeroSul) spironolactone 100 mg tablet 100 mg PO QID 07/01/23 07/01/23 History New Prescriptions to Start Prescriptions: Allergies Allergy/AdvReac Type Severity Reaction Status Date / Time codeine [CODEINE] Allergy Unknown Unknown Verified 06/13/23 13:03 allergy reaction guaifenesin [GUAIFENESIN] Allergy Unknown Unknown Verified 06/13/23 13:03 allergy reaction hydrocodone [HYDROCODONE] Allergy Unknown Unknown Verified 06/13/23 13:03 allergy reaction terbutaline [TERBUTALINE] Allergy Unknown Unknown Verified 06/13/23 13:03 allergy reaction Hospital Course Hospital Course Hospital Course: renetta has a several month history of GI bleeding weight loss and recently underwent a bidirectional scope by Dr. Chris which diagnosed a fungating anal canal mass that is stage T3 squamous cell carcinoma. Patient has been evaluated by Dr. Pemberton and also referred to radiation oncology at [facility] as well as [facility] in [place]. I believe the plan is for chemoradiation prior to surgery. Patient reports with significant increase in bright red blood per rectum and reports that she has had more than 5 episodes of just clotted red blood today. Patient reports significant amount of rectal pain as well as abdominal bloating. She denies chest pain shortness of breath fever chills hemoptysis hematemesis. 53-year-old female who presents to the emergency department for evaluation of GI bleeding. Patient patient recently diagnosed with squamous cell carcinoma of the rectum and is followed by Dr. Pemberton and has been referred to [facility] in [place] as well as [facility] for radiation oncology. Patient is hemodynamically stable upon arrival, afebrile. Physical exam is remarkable for a very painful rectum upon digital examination with a anterior rectal mass felt on digital exam. There is fresh blood in the rectal vault but only a trace amount currently.. Differential diagnosis includes bleeding mass versus other GI bleed. Initial workup will be conducted with hematologic labs CT scan of the abdomen pelvis. Initial interventions include crystalloid bolus Toradol and Tylenol as patient has multiple allergies/intolerances to opiates. Initial workup reviewed by me shows a stable H&H and remainder of her laboratory investigations are nonactionable.. Given her significant comorbidities including being on Plavix along with known rectal mass that is received no treatment I went ahead and discussed patient management with the transfer center at [facility]. has accepted the patient in transfer pending bed assignment at 1538. Results Data Completed and Pending Labs on day of discharge: Labs from last 24 hours 07/01/23 07/01/23 07/01/23 15:50 14:35 14:30 WBC RBC Hgb Hct MCV MCH MCHC RDW Plt Count MPV Neut % (Auto) Lymph % (Auto) [place] % (Auto) Eos % (Auto) Baso % (Auto) Neut # (Auto) Lymph # (Auto) [place] # (Auto) Eos # (Auto) Baso # (Auto) PT INR Sodium Potassium Chloride Carbon Dioxide Anion Gap BUN Creatinine Estimated Creat Clear Estimated GFR Est GFR ( Amer) Glucose Lactate 1.1 Calcium Magnesium Total Bilirubin AST ALT Alkaline Phosphatase Total Protein Albumin Globulin Albumin/Globulin Ratio Urine Color Urine Appearance Urine pH Ur Specific [place] Urine Protein Urine Glucose (UA) Urine Ketones Urine Blood Urine Nitrate Urine Bilirubin Urine Urobilinogen Ur Leukocyte Esterase Urine RBC Urine WBC Ur Squamous Epith Cells Urine Bacteria Stool Occult Blood Positive A Blood Type A Positive Antibody Screen Negative 07/01/23 07/01/23 14:05 13:35 WBC 10.5 RBC 4.92 Hgb 15.6 Hct 49.3 H MCV 100.2 H MCH 31.7 H MCHC 31.7 L RDW 13.0 Plt Count 338 MPV 7.8 Neut % (Auto) 63.2 Lymph % (Auto) 26.3 [place] % (Auto) 6.0 Eos % (Auto) 3.6 Baso % (Auto) 1.0 Neut # (Auto) 6.6 Lymph # (Auto) 2.8 [place] # (Auto) 0.6 Eos # (Auto) 0.4 Baso # (Auto) 0.1 PT 10.6 INR 0.98 Sodium 135 L Potassium 4.8 Chloride 98 Carbon Dioxide 31 H Anion Gap 10.8 BUN 9 Creatinine 0.90 Estimated Creat Clear 53 Estimated GFR 65 Est GFR ( Amer) 79 Glucose 105 H Lactate Calcium 9.8 Magnesium 1.6 Total Bilirubin 0.3 AST 28 ALT 18 Alkaline Phosphatase 55 Total Protein 7.5 Albumin 4.4 Globulin 3.1 Albumin/Globulin Ratio 1.4 Urine Color Yellow Urine Appearance Clear Urine pH 6.0 Ur Specific [place] 1.015 Urine Protein Negative Urine Glucose (UA) Negative Urine Ketones Trace Urine Blood 1+ Urine Nitrate Negative Urine Bilirubin Negative Urine Urobilinogen 1.0 Ur Leukocyte Esterase Negative Urine RBC None Urine WBC Occasional Ur Squamous Epith Cells 3-5 Urine Bacteria None Stool Occult Blood Blood Type Antibody Screen Imaging and Cardiology CT scan - abdomen: Status: image reviewed by me, Preliminary report and final report Additional comments: IMPRESSION: A large amount of stool is present in the colon. Bilateral iliac arterial stents are present, and the segments that are stented appear patent. No major vessel narrowing or occlusion is present in the abdomen or pelvis. No site for a gastrointestinal bleed is noted on this exam. DS: Diagnosis Discharge Diagnosis (1) Squamous cell carcinoma of rectum: Status: Acute Code(s): C20 - Malignant neoplasm of rectum (2) Acute GI bleeding: Status: Acute Code(s): K92.2 - Gastrointestinal hemorrhage, unspecified (3) Serrated adenoma of colon: Status: Acute Code(s): D12.6 - Benign neoplasm of colon, unspecified (4) Anal squamous cell carcinoma: Status: Acute Code(s): C21.0 - Malignant neoplasm of anus, unspecified Discharge Plan Disposition Patient Disposition: Xfer Short-Term Hosp Condition: Serious Discharge Order Discharge Orders: Discharge Order (Routine); Ordered 07/01/23 Ordered By: Laurent Larry Follow up Plan Prescriptions/Medication Reconciliation: Continued tramadol 50 mg tablet 50 mg PO TID PRN (Reason: pain) Qty: 90 0RF ipratropium-albuterol 0.5 mg-3 mg(2.5 mg base)/3 mL solution for nebulization 3 ml inhalation QID PRN (Reason: shortness of breath or wheezing) 90 Days Qty: 270 3RF atorvastatin 20 mg tablet See Rx Instructions .ROUTE .COMPLEX Qty: 90 3RF Rx Instructions: TAKE 1 TABLET BY MOUTH ONCE DAILY budesonide-formoterol [Symbicort] 160-4.5 mcg/actuation HFA aerosol inhaler See Rx Instructions .ROUTE .COMPLEX Qty: 10.2 2RF Dose Instruction: INHALE 2 PUFFS BY MOUTH TWICE A DAY (RINSE MOUTH AFTER USE) Rx Instructions: INHALE 2 PUFFS BY MOUTH TWICE A DAY (RINSE MOUTH AFTER USE) azelastine 137 mcg (0.1 %) aerosol,spray See Rx Instructions .ROUTE .COMPLEX Qty: 30 2RF Dose Instruction: USE 2 SPRAYS IN EACH NOSTRIL AT BEDTIME NIGHTLY Rx Instructions: USE 2 SPRAYS IN EACH NOSTRIL AT BEDTIME NIGHTLY fluticasone propionate 50 mcg/actuation spray,suspension See Rx Instructions .ROUTE .COMPLEX Qty: 16 2RF Dose Instruction: USE 2 SPRAYS IN EACH NOSTRIL DAILY Rx Instructions: USE 2 SPRAYS IN EACH NOSTRIL DAILY montelukast 10 mg tablet See Rx Instructions .ROUTE .COMPLEX Qty: 90 2RF Dose Instruction: TAKE 1 TABLET BY MOUTH ONCE DAILY Rx Instructions: TAKE 1 TABLET BY MOUTH ONCE DAILY metoprolol tartrate 50 mg tablet 50 mg PO BID Qty: 180 1RF albuterol sulfate [Ventolin HFA] 90 mcg/actuation HFA aerosol inhaler See Rx Instructions .ROUTE .COMPLEX Qty: 18 1RF Dose Instruction: INHALE 2 PUFFS BY MOUTH FOUR TIMES A DAY NEEDED FOR SHORTNESS OF BREATH OR WHEEZING Rx Instructions: INHALE 2 PUFFS BY MOUTH FOUR TIMES A DAY NEEDED FOR SHORTNESS OF BREATH OR WHEEZING ferrous sulfate [FeroSul] 325 mg (65 mg iron) Tablet 325 mg PO BID Rx Instructions: saturday, Saturday, Saturday. BID esomeprazole magnesium [Nexium 24HR] 20 mg Capsule,Delayed Release(Dr/Ec) 20 mg PO DAILY spironolactone 100 mg tablet 100 mg PO QID Held clopidogrel 75 mg tablet 75 mg PO DAILY Hold Instructions: Resume on 07/09/23. Rx Instructions: HS aspirin 81 mg tablet,delayed release (DR/EC) See Rx Instructions .ROUTE .COMPLEX Qty: 90 3RF Hold Instructions: Resume on 07/09/23. Rx Instructions: TAKE ONE TABLET BY MOUTH EVERY DAY FOR HEART DISEASE patient needs to make an appt before anymore refills Problem Reconciliation Problems Reviewed?: Yes Patient Discharge Instructions ACTIVITY: Ambulate as tolerated DIET: continue same diet Patient Instructions: Gastrointestinal Bleeding Providers Primary Care Provider: Daniel Corona Admit Provider: Osei Dobbs Attending Provider: Osei Dobbs
--- NOTE | 2023-07-01 20:34 | PC.NURSE ---
called report to calvin holliday on 2nd floor and answered all questions
--- NOTE | 2023-07-01 20:51 | PC.NURSE ---
Patient arrived to floor via wheelchair from ED at 20:50.
[2023-07-01 21:12] LABS: Hematocrit 46.7 % (37.0-47.0); Hemoglobin 14.6 g/dL (12.2-16.2)
[2023-07-01] MEDS: 0.9 % SODIUM CHLORIDE 1000ML 1,000 ML 100 ML IV (21:36)
[2023-07-01] MEDS: PANTOPRAZOLE 40MG VIAL 40 MG IV (21:36)
[2023-07-01] MEDS: METOPROLOL TARTRATE 50MG TABLET 50 MG PO (22:55)
[2023-07-01 22:58] LABS: Hemoglobin 13.8 g/dL (12.2-16.2)
[2023-07-02] VITALS: BP 129/67; PULSE 60; RESP 16; TEMP 36.4; O2SAT 97
--- NOTE | 2023-07-02 03:12 | PC.NURSE ---
called report to MIRZA Killian at [address] [place] [address] at this time
--- NOTE | 2023-07-02 03:56 | PC.NURSE ---
Pt is alert and oriented x4, and currently on RA. Pt has c/o mild to moderate pain in rectum, and denies other needs. pt has been informed about transfer and is ready.
[2023-07-02] MEDS: TRAMADOL 50MG TABLET 50 MG PO (04:06)
--- NOTE | 2023-07-02 04:09 | PC.NURSE ---
Patient left floor with EMS at 4:09.
--- NOTE | 2023-07-02 04:10 | PC.NURSE ---
Pt leaving unit via stretcher accompanied by EMS x2 at this time.
== END 2023-07-02 04:13 | disposition short-term general hospital (02) ==
LOC: ER 15:46 → 2ND 20:39
PROVIDERS: Nurse Practitioner Family; Physician Assistant; Admitting Provider Internal Medicine Adolescent Medicine; Emergency Provider Emergency Medicine; PCP Internal Medicine; Visit Provider Internal Medicine Adolescent Medicine
DX: C20 Malignant neoplasm of rectum (principal); K92.2 Gastrointestinal hemorrhage, unspecified; Z79.899 Other long term (current) drug therapy; J44.9 Chronic obstructive pulmonary disease, unspecified; F17.210 Nicotine dependence, cigarettes, uncomplicated
CPT/HCPCS: 36415; 74174; 80053; 81001; 82272; 83605; 83735; 85014; 85018; 85025; 85610; 86850; 99285; G0328; G0378; J0131; Q9967

== ENCOUNTER 2023-07-23 12:16 | Outpatient (CLI) | payer BC, SELFPAY ==
[2023-07-23 12:27] VITALS: BMI 17.8
[2023-07-23 12:43] LABS: Basophils # 0.2 K/mm3 (0-0.2); Eosinophils # 0.3 K/mm3 (0.0-0.4); Eosinophils % 3.9 % (0.1-12.0); Hematocrit 44.2 % (37.0-47.0); Hemoglobin 13.8 g/dL (12.2-16.2); Lymphocytes # 1.8 K/mm3 (0.7-4.5); Mean Corpuscular HGB Conc 31.2 g/dL (31.8-35.4); Mean Corpuscular Hemoglobin 31.6 pg (27.0-31.2); Mean Corpuscular Volume 101.3 fl (81-99); Mean Platelet Volume 7.6 fl (7.4-10.4); Monocytes # 0.4 K/mm3 (0.1-1.0); Neutrophils # 5.4 K/mm3 (1.8-7.8); Neutrophils % 67.2 % (37.0-80.0); Platelet Count 366 K/mm3 (142-424); Red Blood Count 4.36 M/mm3 (4.20-5.40); Red Cell Distribution Width 13.4 % (11.5-17.5); White Blood Count 8.1 K/mm3 (4.8-10.8)
[2023-07-23 12:48] LABS: Chloride 102 mmol/L (98-107)
[2023-07-23 12:49] LABS: Potassium 4.5 mmoL/L (3.5-5.1); Sodium 136 mmol/L (136-145)
[2023-07-23 12:51] LABS: Alanine Aminotransferase 13 U/L (12-78); Albumin Level 3.9 g/dl (3.5-5.0); Alkaline Phosphatase 45 U/L (38-126); Anion Gap 7.5 mEq/L (5-15); Aspartate Amino Transferase 24 U/L (14-36); Bilirubin,Total 0.4 mg/dl (0.2-1.3); Blood Urea Nitrogen 9 mg/dl (7-17); Carbon Dioxide 31 mmol/L (22.0-30.0); Creatinine Clearance Estimated 62 mL/min (50-200); Estimated Glomerular Filt Rate 75 ml/min (>60); GFR (African American) 91 ML/MIN (>60)
[2023-07-23 12:52] LABS: Albumin/Globulin Ratio 1.4 (1.1-1.8); Calcium 9.4 mg/dl (8.4-10.2); Globulin 2.8 g/dL (1.3-3.2); Glucose 105 mg/dl (74-100); Magnesium 1.8 mg/dl (1.6-2.3); Total Protein,Serum 6.7 g/dl (6.3-8.2)
[2023-07-23] MEDS: 0.9 % SODIUM CHLORIDE 250 ML IV (13:17)
[2023-07-23] MEDS: DEXAMETHASONE 4MG TABLET 12 MG PO (13:17)
[2023-07-23] MEDS: mitoMYcin 20MG/40ML VIAL 15 MG IV (13:41)
[2023-07-23 13:45] VITALS: BP 143/76; PULSE 49; RESP 18; TEMP 36.6; O2SAT 100
[2023-07-23 14:13] VITALS: BP 122/80; PULSE 56; RESP 18; O2SAT 100
== END 2023-07-23 14:15 | disposition home or self-care (01) ==
LOC: INF 12:21
PROVIDERS: PCP Internal Medicine; Visit Provider Internal Medicine Medical Oncology
DX: Z51.11 Encounter for antineoplastic chemotherapy (principal); C20 Malignant neoplasm of rectum; C21.0 Malignant neoplasm of anus, unspecified
CPT/HCPCS: 80053; 83735; 85025; 96409; J9280

== ENCOUNTER 2023-07-30 11:56 | Outpatient (CLI) | payer BC, SELFPAY ==
[2023-07-30 11:59] VITALS: BMI 17.9
--- NOTE | 2023-07-30 12:03 | PC.NURSE ---
1203-collected labs via venipuncture stick in left ac with butterfly needle;pt d/c home.
[2023-07-30 12:14] LABS: Basophils % 0.9 % (0.1-2.0); Eosinophils # 0.1 K/mm3 (0.0-0.4); Hematocrit 37.3 % (37.0-47.0); Hemoglobin 12.2 g/dL (12.2-16.2); Lymphocytes # 0.9 K/mm3 (0.7-4.5); Lymphocytes % 22.3 % (10-50); Mean Corpuscular HGB Conc 32.6 g/dL (31.8-35.4); Mean Corpuscular Hemoglobin 31.9 pg (27.0-31.2); Mean Corpuscular Volume 97.8 fl (81-99); Mean Platelet Volume 7.9 fl (7.4-10.4); Monocytes # 0.1 K/mm3 (0.1-1.0); Monocytes % 3.4 % (1.7-9.3); Neutrophils # 2.8 K/mm3 (1.8-7.8); Neutrophils % 71.4 % (37.0-80.0); Platelet Count 268 K/mm3 (142-424); Red Blood Count 3.82 M/mm3 (4.20-5.40); Red Cell Distribution Width 13.7 % (11.5-17.5); White Blood Count 3.9 K/mm3 (4.8-10.8)
[2023-07-30 12:19] LABS: Chloride 108 mmol/L (98-107)
[2023-07-30 12:20] LABS: Sodium 139 mmol/L (136-145)
[2023-07-30 12:22] LABS: Alanine Aminotransferase 14 U/L (12-78); Alkaline Phosphatase 43 U/L (38-126); Aspartate Amino Transferase 23 U/L (14-36); Bilirubin,Total 0.6 mg/dl (0.2-1.3); Blood Urea Nitrogen 7 mg/dl (7-17); Carbon Dioxide 27 mmol/L (22.0-30.0); Creatinine Clearance Estimated 72 mL/min (50-200); Estimated Glomerular Filt Rate 88 ml/min (>60); GFR (African American) 106 ML/MIN (>60)
[2023-07-30 12:23] LABS: Albumin Level 3.6 g/dl (3.5-5.0); Albumin/Globulin Ratio 1.3 (1.1-1.8); Calcium 8.9 mg/dl (8.4-10.2); Globulin 2.8 g/dL (1.3-3.2); Glucose 101 mg/dl (74-100); Total Protein,Serum 6.4 g/dl (6.3-8.2)
== END 2023-07-30 12:03 | disposition home or self-care (01) ==
LOC: INF 11:56
PROVIDERS: PCP Internal Medicine; Visit Provider Internal Medicine Medical Oncology
DX: C21.0 Malignant neoplasm of anus, unspecified (principal)
CPT/HCPCS: 36415; 80053; 85025

== ENCOUNTER 2023-08-06 11:45 | Outpatient (CLI) | payer BC, SELFPAY ==
[2023-08-06 11:47] VITALS: BMI 17.9
--- NOTE | 2023-08-06 11:50 | PC.NURSE ---
1150-collected labs via venipuncture stick in left ac with butterfly needle; to call pt with results
--- NOTE | 2023-08-06 11:50 | PC.NURSE ---
1150-collected labs via venipuncture stick in left ac with butterfly needle; will review results
[2023-08-06 12:05] LABS: Basophils % 0.5 % (0.1-2.0); Eosinophils # 0.1 K/mm3 (0.0-0.4); Hematocrit 37.1 % (37.0-47.0); Lymphocytes # 0.6 K/mm3 (0.7-4.5); Lymphocytes % 22.2 % (10-50); Mean Corpuscular HGB Conc 32.5 g/dL (31.8-35.4); Mean Corpuscular Volume 98.6 fl (81-99); Mean Platelet Volume 8.2 fl (7.4-10.4); Monocytes # 0.2 K/mm3 (0.1-1.0); Monocytes % 7.9 % (1.7-9.3); Neutrophils # 1.8 K/mm3 (1.8-7.8); Neutrophils % 66.4 % (37.0-80.0); Platelet Count 119 K/mm3 (142-424); Red Blood Count 3.76 M/mm3 (4.20-5.40); Red Cell Distribution Width 13.8 % (11.5-17.5); White Blood Count 2.6 K/mm3 (4.8-10.8)
[2023-08-06 12:13] LABS: Chloride 107 mmol/L (98-107)
[2023-08-06 12:14] LABS: Potassium 3.7 mmoL/L (3.5-5.1)
[2023-08-06 12:16] LABS: Alanine Aminotransferase 17 U/L (12-78); Albumin Level 3.8 g/dl (3.5-5.0); Albumin/Globulin Ratio 1.5 (1.1-1.8); Alkaline Phosphatase 41 U/L (38-126); Aspartate Amino Transferase 27 U/L (14-36); Bilirubin,Total 0.4 mg/dl (0.2-1.3); Blood Urea Nitrogen 5 mg/dl (7-17); Calcium 9.2 mg/dl (8.4-10.2); Carbon Dioxide 26 mmol/L (22.0-30.0); Creatinine Clearance Estimated 72 mL/min (50-200); Estimated Glomerular Filt Rate 88 ml/min (>60); GFR (African American) 106 ML/MIN (>60); Globulin 2.6 g/dL (1.3-3.2); Glucose 99 mg/dl (74-100); Total Protein,Serum 6.4 g/dl (6.3-8.2)
[2023-08-06 13:55] LABS: Anion Gap 8.7 mEq/L (5-15); Sodium 138 mmol/L (136-145)
== END 2023-08-06 11:55 | disposition home or self-care (01) ==
LOC: INF 11:45
PROVIDERS: PCP Internal Medicine; Visit Provider Internal Medicine Medical Oncology
DX: D72.819 Decreased white blood cell count, unspecified (principal); D64.9 Anemia, unspecified
CPT/HCPCS: 36415; 80053; 85025

== ENCOUNTER 2023-08-13 11:24 | Outpatient (CLI) | payer BC, SELFPAY ==
[2023-08-13 11:27] VITALS: BMI 17.9
[2023-08-13 11:39] LABS: Basophils % 0.8 % (0.1-2.0); Eosinophils # 0.2 K/mm3 (0.0-0.4); Eosinophils % 3.7 % (0.1-12.0); Hematocrit 37.1 % (37.0-47.0); Hemoglobin 12.1 g/dL (12.2-16.2); Lymphocytes # 0.7 K/mm3 (0.7-4.5); Lymphocytes % 14.2 % (10-50); Mean Corpuscular HGB Conc 32.8 g/dL (31.8-35.4); Mean Corpuscular Hemoglobin 32.5 pg (27.0-31.2); Mean Corpuscular Volume 99.3 fl (81-99); Mean Platelet Volume 9.8 fl (7.4-10.4); Monocytes # 0.3 K/mm3 (0.1-1.0); Monocytes % 6.9 % (1.7-9.3); Neutrophils # 3.6 K/mm3 (1.8-7.8); Neutrophils % 74.4 % (37.0-80.0); Platelet Count 158 K/mm3 (142-424); Red Blood Count 3.74 M/mm3 (4.20-5.40); Red Cell Distribution Width 16.2 % (11.5-17.5); White Blood Count 4.8 K/mm3 (4.8-10.8)
[2023-08-13 11:45] LABS: Chloride 105 mmol/L (98-107); Sodium 138 mmol/L (136-145)
[2023-08-13 11:46] LABS: Potassium 4.5 mmoL/L (3.5-5.1)
[2023-08-13 11:48] LABS: Alanine Aminotransferase 13 U/L (12-78); Albumin Level 3.7 g/dl (3.5-5.0); Albumin/Globulin Ratio 1.3 (1.1-1.8); Alkaline Phosphatase 41 U/L (38-126); Anion Gap 7.5 mEq/L (5-15); Aspartate Amino Transferase 22 U/L (14-36); Bilirubin,Total 0.2 mg/dl (0.2-1.3); Blood Urea Nitrogen 5 mg/dl (7-17); Carbon Dioxide 30 mmol/L (22.0-30.0); Creatinine Clearance Estimated 72 mL/min (50-200); Estimated Glomerular Filt Rate 88 ml/min (>60); GFR (African American) 106 ML/MIN (>60); Globulin 2.9 g/dL (1.3-3.2); Total Protein,Serum 6.6 g/dl (6.3-8.2)
[2023-08-13 11:49] LABS: Calcium 9.3 mg/dl (8.4-10.2); Glucose 102 mg/dl (74-100)
== END 2023-08-13 11:35 | disposition home or self-care (01) ==
LOC: INF 11:24
PROVIDERS: PCP Internal Medicine; Visit Provider Internal Medicine Medical Oncology
DX: C21.0 Malignant neoplasm of anus, unspecified (principal)
CPT/HCPCS: 36415; 80053; 85025

== ENCOUNTER 2023-08-19 13:44 | Outpatient (CLI) | payer BC, SELFPAY ==
[2023-08-19 14:01] VITALS: BMI 17.9
[2023-08-19 14:09] LABS: Chloride 103 mmol/L (98-107)
[2023-08-19 14:10] LABS: Potassium 4.1 mmoL/L (3.5-5.1); Sodium 137 mmol/L (136-145)
[2023-08-19 14:12] LABS: Alanine Aminotransferase 15 U/L (12-78); Aspartate Amino Transferase 22 U/L (14-36); Blood Urea Nitrogen 7 mg/dl (7-17); Creatinine Clearance Estimated 72 mL/min (50-200); Estimated Glomerular Filt Rate 88 ml/min (>60); GFR (African American) 106 ML/MIN (>60)
[2023-08-19 14:13] LABS: Albumin Level 3.8 g/dl (3.5-5.0); Albumin/Globulin Ratio 1.3 (1.1-1.8); Alkaline Phosphatase 43 U/L (38-126); Anion Gap 8.1 mEq/L (5-15); Bilirubin,Total 0.2 mg/dl (0.2-1.3); Calcium 9.2 mg/dl (8.4-10.2); Carbon Dioxide 30 mmol/L (22.0-30.0); Glucose 103 mg/dl (74-100); Magnesium 1.6 mg/dl (1.6-2.3); Total Protein,Serum 6.8 g/dl (6.3-8.2)
[2023-08-19 14:14] LABS: Basophils % 0.9 % (0.1-2.0); Eosinophils # 0.2 K/mm3 (0.0-0.4); Eosinophils % 4.4 % (0.1-12.0); Hematocrit 36.2 % (37.0-47.0); Hemoglobin 11.8 g/dL (12.2-16.2); Lymphocytes # 0.7 K/mm3 (0.7-4.5); Lymphocytes % 15.8 % (10-50); Mean Corpuscular HGB Conc 32.5 g/dL (31.8-35.4); Mean Corpuscular Hemoglobin 32.8 pg (27.0-31.2); Mean Platelet Volume 8.4 fl (7.4-10.4); Monocytes # 0.3 K/mm3 (0.1-1.0); Monocytes % 7.2 % (1.7-9.3); Neutrophils % 71.7 % (37.0-80.0); Platelet Count 295 K/mm3 (142-424); Red Blood Count 3.58 M/mm3 (4.20-5.40); Red Cell Distribution Width 17.5 % (11.5-17.5); White Blood Count 4.2 K/mm3 (4.8-10.8)
== END 2023-08-19 14:00 | disposition home or self-care (01) ==
LOC: INF 13:44
PROVIDERS: PCP Internal Medicine; Visit Provider Internal Medicine Medical Oncology
DX: C21.1 Malignant neoplasm of anal canal (principal)
CPT/HCPCS: 36415; 80053; 83735; 85025

== ENCOUNTER 2023-08-21 12:08 | Outpatient (CLI) | payer BC, SELFPAY ==
[2023-08-21] MEDS: DEXAMETHASONE 4MG TABLET 12 MG PO (12:20)
[2023-08-21] MEDS: mitoMYcin 20MG/40ML VIAL 15 MG IV (12:47)
[2023-08-21] MEDS: 0.9 % SODIUM CHLORIDE 250 ML 500 ML IV (12:48)
[2023-08-21 12:50] VITALS: BP 108/40; PULSE 56; RESP 18; TEMP 37; O2SAT 96
[2023-08-21 13:10] VITALS: BP 124/68; PULSE 51
== END 2023-08-21 13:25 | disposition home or self-care (01) ==
LOC: INF 12:08
PROVIDERS: PCP Internal Medicine; Visit Provider Internal Medicine Medical Oncology
DX: Z51.11 Encounter for antineoplastic chemotherapy (principal); C21.1 Malignant neoplasm of anal canal; Z79.632 Long term (current) use of antitumor antibiotic
CPT/HCPCS: 96413; J9280

== ENCOUNTER 2023-08-28 11:14 | Outpatient (CLI) | payer BC, SELFPAY ==
[2023-08-28 11:17] VITALS: BMI 16.5
[2023-08-28 11:30] LABS: Basophils % 0.6 % (0.1-2.0); Eosinophils # 0.1 K/mm3 (0.0-0.4); Eosinophils % 1.9 % (0.1-12.0); Hematocrit 39.8 % (37.0-47.0); Hemoglobin 12.5 g/dL (12.2-16.2); Lymphocytes # 0.4 K/mm3 (0.7-4.5); Lymphocytes % 9.7 % (10-50); Mean Corpuscular HGB Conc 31.4 g/dL (31.8-35.4); Mean Corpuscular Hemoglobin 32.9 pg (27.0-31.2); Mean Corpuscular Volume 104.6 fl (81-99); Mean Platelet Volume 7.7 fl (7.4-10.4); Monocytes # 0.4 K/mm3 (0.1-1.0); Monocytes % 8.1 % (1.7-9.3); Neutrophils # 3.6 K/mm3 (1.8-7.8); Neutrophils % 79.6 % (37.0-80.0); Platelet Count 271 K/mm3 (142-424); Red Cell Distribution Width 20.1 % (11.5-17.5); White Blood Count 4.5 K/mm3 (4.8-10.8)
[2023-08-28 11:34] LABS: Chloride 99 mmol/L (98-107)
[2023-08-28 11:35] LABS: Potassium 4.6 mmoL/L (3.5-5.1); Sodium 132 mmol/L (136-145)
[2023-08-28 11:37] LABS: Alanine Aminotransferase 14 U/L (12-78); Aspartate Amino Transferase 26 U/L (14-36); Blood Urea Nitrogen 11 mg/dl (7-17); Creatinine Clearance Estimated 66 mL/min (50-200); Estimated Glomerular Filt Rate 88 ml/min (>60); GFR (African American) 106 ML/MIN (>60)
[2023-08-28 11:38] LABS: Albumin Level 4.3 g/dl (3.5-5.0); Albumin/Globulin Ratio 1.5 (1.1-1.8); Alkaline Phosphatase 47 U/L (38-126); Anion Gap 9.6 mEq/L (5-15); Bilirubin,Total 0.5 mg/dl (0.2-1.3); Calcium 9.6 mg/dl (8.4-10.2); Carbon Dioxide 28 mmol/L (22.0-30.0); Globulin 2.9 g/dL (1.3-3.2); Glucose 98 mg/dl (74-100); Total Protein,Serum 7.2 g/dl (6.3-8.2)
== END 2023-08-28 11:28 | disposition home or self-care (01) ==
LOC: INF 11:15
PROVIDERS: PCP Internal Medicine; Visit Provider Internal Medicine Medical Oncology
DX: C21.1 Malignant neoplasm of anal canal (principal)
CPT/HCPCS: 36415; 80053; 85025

== ENCOUNTER 2023-09-04 11:40 | Outpatient (CLI) | payer BC, SELFPAY ==
[2023-09-04 11:46] VITALS: BMI 16.5
[2023-09-04 11:56] LABS: Basophils % 0.5 % (0.1-2.0); Eosinophils # 0.1 K/mm3 (0.0-0.4); Eosinophils % 1.5 % (0.1-12.0); Hematocrit 37.5 % (37.0-47.0); Hemoglobin 12.1 g/dL (12.2-16.2); Lymphocytes # 0.4 K/mm3 (0.7-4.5); Lymphocytes % 8.6 % (10-50); Mean Corpuscular HGB Conc 32.3 g/dL (31.8-35.4); Mean Corpuscular Hemoglobin 33.8 pg (27.0-31.2); Mean Corpuscular Volume 104.5 fl (81-99); Mean Platelet Volume 9.1 fl (7.4-10.4); Monocytes # 0.4 K/mm3 (0.1-1.0); Monocytes % 8.2 % (1.7-9.3); Neutrophils # 3.6 K/mm3 (1.8-7.8); Neutrophils % 81.2 % (37.0-80.0); Platelet Count 197 K/mm3 (142-424); Red Blood Count 3.59 M/mm3 (4.20-5.40); Red Cell Distribution Width 21.7 % (11.5-17.5); White Blood Count 4.5 K/mm3 (4.8-10.8)
[2023-09-04 12:02] LABS: Chloride 100 mmol/L (98-107); Potassium 4.8 mmoL/L (3.5-5.1); Sodium 137 mmol/L (136-145)
[2023-09-04 12:04] LABS: Alanine Aminotransferase 14 U/L (12-78); Aspartate Amino Transferase 22 U/L (14-36); Blood Urea Nitrogen 9 mg/dl (7-17); Creatinine Clearance Estimated 46 mL/min (50-200); Estimated Glomerular Filt Rate 58 ml/min (>60); GFR (African American) 70 ML/MIN (>60)
[2023-09-04 12:05] LABS: Albumin Level 4.2 g/dl (3.5-5.0); Albumin/Globulin Ratio 1.2 (1.1-1.8); Alkaline Phosphatase 53 U/L (38-126); Anion Gap 12.8 mEq/L (5-15); Bilirubin,Total 0.4 mg/dl (0.2-1.3); Calcium 9.5 mg/dl (8.4-10.2); Carbon Dioxide 29 mmol/L (22.0-30.0); Globulin 3.4 g/dL (1.3-3.2); Glucose 89 mg/dl (74-100); Total Protein,Serum 7.6 g/dl (6.3-8.2)
== END 2023-09-04 11:48 | disposition home or self-care (01) ==
LOC: INF 11:41
PROVIDERS: PCP Internal Medicine; Visit Provider Internal Medicine Medical Oncology
DX: C21.1 Malignant neoplasm of anal canal (principal)
CPT/HCPCS: 36415; 80053; 85025

== ENCOUNTER 2023-09-11 12:01 | Outpatient (CLI) | payer BC, SELFPAY ==
[2023-09-11 12:04] VITALS: BMI 15.6
[2023-09-11 12:18] LABS: Basophils % 0.6 % (0.1-2.0); Eosinophils # 0.2 K/mm3 (0.0-0.4); Eosinophils % 3.3 % (0.1-12.0); Hematocrit 37.1 % (37.0-47.0); Hemoglobin 12.2 g/dL (12.2-16.2); Lymphocytes # 0.4 K/mm3 (0.7-4.5); Lymphocytes % 7.2 % (10-50); Mean Corpuscular HGB Conc 32.9 g/dL (31.8-35.4); Mean Corpuscular Volume 106.3 fl (81-99); Mean Platelet Volume 8.6 fl (7.4-10.4); Monocytes # 0.3 K/mm3 (0.1-1.0); Neutrophils # 4.2 K/mm3 (1.8-7.8); Neutrophils % 82.9 % (37.0-80.0); Platelet Count 289 K/mm3 (142-424); Red Blood Count 3.49 M/mm3 (4.20-5.40); Red Cell Distribution Width 22.2 % (11.5-17.5)
[2023-09-11 12:21] LABS: Chloride 101 mmol/L (98-107); Sodium 137 mmol/L (136-145)
[2023-09-11 12:22] LABS: Potassium 4.8 mmoL/L (3.5-5.1)
[2023-09-11 12:24] LABS: Alanine Aminotransferase 15 U/L (12-78); Albumin/Globulin Ratio 1.2 (1.1-1.8); Alkaline Phosphatase 53 U/L (38-126); Aspartate Amino Transferase 23 U/L (14-36); Bilirubin,Total 0.3 mg/dl (0.2-1.3); Blood Urea Nitrogen 13 mg/dl (7-17); Carbon Dioxide 30 mmol/L (22.0-30.0); Creatinine Clearance Estimated 40 mL/min (50-200); Estimated Glomerular Filt Rate 52 ml/min (>60); GFR (African American) 63 ML/MIN (>60); Globulin 3.3 g/dL (1.3-3.2); Total Protein,Serum 7.3 g/dl (6.3-8.2)
[2023-09-11 12:25] LABS: Anion Gap 10.8 mEq/L (5-15); Calcium 9.5 mg/dl (8.4-10.2); Glucose 117 mg/dl (74-100)
== END 2023-09-11 12:10 | disposition home or self-care (01) ==
LOC: INF 12:01
PROVIDERS: PCP Internal Medicine; Visit Provider Internal Medicine Medical Oncology
DX: C21.1 Malignant neoplasm of anal canal (principal)
CPT/HCPCS: 36415; 80053; 85025

== ENCOUNTER 2023-11-20 09:50 | Outpatient (CLI) | payer BC, SELFPAY ==
[2023-11-20 09:55] VITALS: BMI 16.0
[2023-11-20 10:13] LABS: Basophils # 0.1 K/mm3 (0-0.2); Basophils % 0.9 % (0.1-2.0); Eosinophils # 0.3 K/mm3 (0.0-0.4); Eosinophils % 4.5 % (0.1-12.0); Hematocrit 44.8 % (37.0-47.0); Hemoglobin 14.3 g/dL (12.2-16.2); Lymphocytes # 0.8 K/mm3 (0.7-4.5); Lymphocytes % 11.8 % (10-50); Mean Corpuscular HGB Conc 31.8 g/dL (31.8-35.4); Mean Corpuscular Hemoglobin 35.5 pg (27.0-31.2); Mean Corpuscular Volume 111.4 fl (81-99); Mean Platelet Volume 7.9 fl (7.4-10.4); Monocytes # 0.5 K/mm3 (0.1-1.0); Monocytes % 7.3 % (1.7-9.3); Neutrophils % 75.6 % (37.0-80.0); Platelet Count 299 K/mm3 (142-424); Red Blood Count 4.02 M/mm3 (4.20-5.40); Red Cell Distribution Width 14.3 % (11.5-17.5); White Blood Count 6.6 K/mm3 (4.8-10.8)
[2023-11-20 10:20] LABS: Albumin Level 3.8 g/dl (3.5-5.0); Chloride 100 mmol/L (98-107); Sodium 133 mmol/L (136-145)
[2023-11-20 10:21] LABS: Potassium 4.8 mmoL/L (3.5-5.1)
[2023-11-20 10:23] LABS: Alanine Aminotransferase 18 U/L (12-78); Albumin/Globulin Ratio 1.4 (1.1-1.8); Alkaline Phosphatase 44 U/L (38-126); Anion Gap 5.8 mEq/L (5-15); Aspartate Amino Transferase 26 U/L (14-36); Bilirubin,Total 0.5 mg/dl (0.2-1.3); Blood Urea Nitrogen 7 mg/dl (7-17); Carbon Dioxide 32 mmol/L (22.0-30.0); Creatinine Clearance Estimated 64 mL/min (50-200); Estimated Glomerular Filt Rate 88 ml/min (>60); GFR (African American) 106 ML/MIN (>60); Globulin 2.7 g/dL (1.3-3.2); Total Protein,Serum 6.5 g/dl (6.3-8.2)
[2023-11-20 10:24] LABS: Calcium 8.8 mg/dl (8.4-10.2); Glucose 105 mg/dl (74-100)
== END 2023-11-20 10:00 | disposition home or self-care (01) ==
LOC: INF 09:50
PROVIDERS: PCP Internal Medicine; Visit Provider Internal Medicine Medical Oncology
DX: C21.0 Malignant neoplasm of anus, unspecified (principal)
CPT/HCPCS: 36415; 80053; 85025

== ENCOUNTER 2023-11-21 09:13 | Outpatient (CLI) | payer BC, SELFPAY ==
--- NOTE | 2023-11-21 09:17 | CT_ITS ---
FINAL REPORT CLINICAL HISTORY: ANAL CANCER COMPARISON: 05/02/2023 FINDINGS: CT OF THE ABDOMEN AND PELVIS WITH CONTRAST Axial CT images of the abdomen and pelvis were obtained after the administration of oral and iv contrast. Coronal and sagittal reformatted images were also obtained and reviewed.This study was performed with techniques to keep radiation doses as low as reasonably achievable (ALARA). Individualized dose reduction techniques using automated exposure control or adjustment of mA and/or kV according to the patient's size were employed. Abdomen: The lung bases are clear. The heart is normal in size. There is a new 6 mm low-attenuation focus in the posterior inferior right hepatic lobe. This may represent a cyst, although a metastasis from the patient's known anal carcinoma cannot be excluded. The spleen is unremarkable. No adrenal mass is present. The pancreas has an unremarkable appearance. The kidneys are normal, without evidence of mass or hydronephrosis. The aorta is normal in caliber. Moderate vascular calcifications are present, and iliac stents are once again noted. There is no free fluid or adenopathy. No mass or abnormal fluid collection is seen. Pelvis: The appendix is not well-visualized. The urinary bladder is unremarkable. No inflammatory process is seen. The uterine fundus is globular in appearance, as seen on the prior CT, which may represent uterine fibroids. There is no evidence of bowel obstruction. IMPRESSION: There is a new 6 mm low-attenuation focus in the posterior inferior right hepatic lobe, which may represent a cyst versus a metastasis. Recommend continued close follow-up further evaluation. Lobular configuration of the uterine fundus, noted on the prior CT, may represent uterine fibroids. Reviewed, Interpreted and Dictated by Surendra Tate III, MD Transcribed by Richelle Cabral Authenticated and [facility]
--- NOTE | 2023-11-21 09:18 | CT_ITS ---
FINAL REPORT CLINICAL HISTORY: ANAL CANCER COMPARISON: 05/22/2023 FINDINGS: Axial CT images of the chest were obtained with contrast. Coronal and sagittal reformatted images were also obtained. This study was performed with techniques to keep radiation doses as low as reasonably achievable, (ALARA). Individualized dose reduction techniques using automated exposure control or adjustment of mA and/or KV according to the patient's size were employed. Multiple small mediastinal nodes are once again identified, stable when compared to the prior exam. No axillary mass or adenopathy is identified. Mild changes of emphysema and scarring are noted. On lung window images, the 5 mm right apical nodule seen on the prior CT is once again identified, best seen on image #11 of series 4, stable in appearance. There is a ground glass nodule immediately posterior to this measuring 7 mm in size, also stable. There is a pleural-based nodule in the right lower lobe, 5 mm in size, new since the prior CT, best seen on image #46 of series 4. There are several other less than 5 mm nodules in the right lower lobe that were not clearly seen on the prior CT exam. Calcified granulomas are present in the left lower lobe. No localized pulmonary inflammatory process is identified. Limited images of the upper abdomen reveal no mass or localized inflammatory process. IMPRESSION: There is a new pulmonary nodule in the right lower lobe, 5 mm in size, that was not seen on the prior exam. There are several other less than 5 mm in size right lower lobe nodules, new as well. Recommend 6-month follow-up CT of the chest to follow. Reviewed, Interpreted and Dictated by Surendra Tate III, MD Transcribed by Richelle Cabral Authenticated and [facility]
[2023-11-21] MEDS: BARIUM SULFATE(READI-CAT2);450ML BOTTLE 450 ML PO (09:35)
[2023-11-21] MEDS: SODIUM CHLORIDE 0.9% 10ML SYR (RAD ONLY) 10 ML IV (09:35)
[2023-11-21] MEDS: IOPAMIDOL-370 (76%);100ML BOTTLE 75 ML IV (09:35)
== END 2023-11-21 23:59 | disposition home or self-care (01) ==
LOC: RAD 09:14
PROVIDERS: PCP Internal Medicine; Visit Provider Internal Medicine Medical Oncology
DX: C21.0 Malignant neoplasm of anus, unspecified (principal)
CPT/HCPCS: 71260; 74177; Q9967

== ENCOUNTER 2024-02-25 07:52 | Outpatient (CLI) | payer BC, SELFPAY ==
--- NOTE | 2024-02-25 07:54 | CT_ITS ---
FINAL REPORT CLINICAL HISTORY: Anal cancer, follow-up COMPARISON: 11/21/2023 FINDINGS: CT OF THE ABDOMEN AND PELVIS WITH CONTRAST Axial CT images of the abdomen and pelvis were obtained after the administration of oral and iv contrast. Coronal reformatted images were also obtained and reviewed.This study was performed with techniques to keep radiation doses as low as reasonably achievable (ALARA). Individualized dose reduction techniques using automated exposure control or adjustment of mA and/or kV according to the patient's size were employed. Abdomen: The lung bases are clear. The heart is normal in size. A less than 1 cm low-attenuation focus in the right hepatic lobe is stable and favored to represent a small cyst. The spleen is unremarkable. No adrenal mass is present. The pancreas has an unremarkable appearance. The kidneys are normal, without evidence of mass or hydronephrosis. The aorta is normal in caliber. Vascular calcifications are noted. There are bilateral iliac artery stents. There is no free fluid or adenopathy. No mass or abnormal fluid collection is seen. Pelvis: The appendix is not well-visualized. The uterus has a heterogeneous and lobular appearance which is favored to represent a uterine fibroid. The urinary bladder is unremarkable. No inflammatory process is seen. There is no adenopathy. No definite anal or rectal mass is identified. There is no evidence of bowel obstruction. IMPRESSION: No evidence of metastatic disease. Stable exam. Reviewed, Interpreted and Dictated by Surendra Tate III, MD Transcribed by Jo Peoples Authenticated and [facility]
[2024-02-25 08:26] LABS: Blood Urea Nitrogen 12 mg/dl (7-17); Estimated Glomerular Filt Rate 75 ml/min (>60); GFR (African American) 91 ML/MIN (>60)
[2024-02-25] MEDS: SODIUM CHLORIDE 0.9% 10ML SYR (RAD ONLY) 10 ML IV (09:05)
[2024-02-25] MEDS: IOPAMIDOL-370 (76%);100ML BOTTLE 75 ML IV (09:05)
== END 2024-02-25 23:59 | disposition home or self-care (01) ==
PROVIDERS: PCP Internal Medicine; Visit Provider Internal Medicine Medical Oncology
DX: C21.0 Malignant neoplasm of anus, unspecified (principal)
CPT/HCPCS: 36415; 74177; 82565; 84520; Q9967

== ENCOUNTER 2024-03-02 10:59 | Outpatient (CLI) | payer BC, SELFPAY ==
--- NOTE | 2024-03-02 11:02 | CT_ITS ---
FINAL REPORT TECHNIQUE: Axial CT with contrast with 3-D MIP reconstruction This study was performed with techniques to keep radiation doses as low as reasonably achievable, (ALARA). Individualized dose reduction techniques using automated exposure control or adjustment of mA and/or kV according to the patient's size were employed. CLINICAL HISTORY: pulmonary nodules COMPARISON: None FINDINGS: Pulmonary vessels enhance in normal fashion without evidence of embolism. Thoracic aorta shows no dissection or aneurysm. The 4 mm right lower lobe nodule noted on the prior exam of November is once again seen, measuring slightly less than seen on the prior exam (was previously 5 mm). This is best seen on image #45. There is a right apical nodule measuring up to 5 mm in size, stable. No new focal masses or adenopathy are noted. Changes of emphysema are once again present. There is no significant pleural effusion. There is no significant pericardial effusion. No mediastinal or hilar adenopathy is present. IMPRESSION: There are stable presumed benign nodules when compared to the prior exam of 11/21/2023. Recommend resumption of surveillance LDCT in 6 months. Reviewed, Interpreted and Dictated by Power Cerna MD Transcribed by Richelle Cabral Authenticated and [facility]
[2024-03-02] MEDS: IOPAMIDOL-370 (76%);100ML BOTTLE 75 ML IV (11:20)
[2024-03-02] MEDS: SODIUM CHLORIDE 0.9% 10ML SYR (RAD ONLY) 10 ML IV (11:20)
== END 2024-03-02 23:59 | disposition home or self-care (01) ==
LOC: RAD 10:59
PROVIDERS: PCP Internal Medicine; Visit Provider Internal Medicine Medical Oncology
DX: C21.0 Malignant neoplasm of anus, unspecified (principal)
CPT/HCPCS: 71260; Q9967

== ENCOUNTER 2024-05-14 13:13 | Outpatient (CLI) | payer MEDICAID, SELFPAY | END 2024-05-14 23:59 | disposition home or self-care (01) | LOC: RAD 13:13 | PROVIDERS: PCP Internal Medicine; Visit Provider Nurse Practitioner Obstetrics & Gynecology | DX: Z12.31 Encounter for screening mammogram for malignant neoplasm of breast (principal) | CPT/HCPCS: 77063; 77067 ==

== ENCOUNTER 2024-07-17 11:30 | Outpatient (CLI) | payer MEDICAID, SELFPAY ==
[2024-07-17 18:33] LABS: Basophils # 0.1 K/mm3 (0-0.2); Basophils % 1.3 % (0.1-2.0); Eosinophils # 0.2 Kmm3 (0.0-0.4); Eosinophils % 4.2 % (0.1-12.0); Hematocrit 40.1 % (37.0-47.0); Hemoglobin 13.6 g/dL (12.2-16.2); Lymphocytes % 18.8 % (10-50); Mean Corpuscular HGB Conc 33.9 g/dL (31.8-35.4); Mean Corpuscular Hemoglobin 34.3 pg (27.0-31.2); Mean Platelet Volume 9.5 fl (7.4-10.4); Monocytes # 0.6 K/mm3 (0.1-1.0); Monocytes % 11.4 % (1.7-9.3); Neutrophils # 3.6 K/mm3 (1.8-7.8); Neutrophils % 64.1 % (37.0-80.0); Nucleated Red Blood Cells # 0 10^3/uL; Nucleated Red Blood Cells % 0 %; Platelet Count 314 K/mm3 (142-424); Red Blood Count 3.97 M/mm3 (4.20-5.40); Red Cell Distribution Width 13.9 % (11.5-17.5); Red Cell Distribution Width-SD 51.8 fL; White Blood Count 5.5 K/mm3 (4.8-10.8)
[2024-07-17 19:17] LABS: Chloride 101 mmol/L (98-107); Potassium 4.6 mmoL/L (3.5-5.1); Sodium 135 mmol/L (136-145)
[2024-07-17 19:19] LABS: Blood Urea Nitrogen 10 mg/dl (7-17); Estimated Glomerular Filt Rate 65 ml/min (>60); GFR (African American) 79 ML/MIN (>60)
[2024-07-17 19:20] LABS: Alanine Aminotransferase 14 U/L (12-78); Alkaline Phosphatase 54 U/L (38-126); Anion Gap 10.6 mEq/L (5-15); Aspartate Amino Transferase 22 U/L (14-36); Bilirubin,Total 0.5 mg/dl (0.2-1.3); Calcium 9.6 mg/dl (8.4-10.2); Carbon Dioxide 28 mmol/L (22.0-30.0); Cholesterol 126 mg/dl (140-200); Glucose 90 mg/dl (74-100); Iron 241 ug/dL (37-170); Total Protein,Serum 7.5 g/dl (6.3-8.2); Triglycerides 147 mg/dl (30-150); VLDL Cholesterol 29 mg/dL (0-40)
[2024-07-17 19:21] LABS: Chol/HDL Ratio 2.9 (1-3.5); HDL Cholesterol 44 mg/dl (40-60)
[2024-07-17 19:27] LABS: 25-OH Vitamin D, Total 62.5 ng/mL (30-100)
[2024-07-17 19:30] LABS: Total Iron Binding Capacity 352 ug/dL (265-497)
[2024-07-17 19:31] LABS: Direct LDL Cholesterol 51.21 mg/dL (100-129)
[2024-07-17 19:40] LABS: Albumin Level 4.9 g/dl (3.5-5.0); Albumin/Globulin Ratio 1.9 (1.1-1.8); Globulin 2.6 g/dL (1.3-3.2)
[2024-07-17 19:51] LABS: Thyroid Stimulating Hormone 3.59 uIU/mL (0.465-4.68)
[2024-07-17 19:55] LABS: Ferritin 48.9 ng/ml (11.1-264)
[2024-07-17 20:05] LABS: Hemoglobin A1C 4.9 % (4.0-6.0)
[2024-07-17 20:18] LABS: Vitamin B12 303 pg/mL (239-931)
== END 2024-07-17 23:59 | disposition home or self-care (01) ==
LOC: LAB.DROPOF 07-20 11:15
PROVIDERS: PCP Family Medicine; Visit Provider Family Medicine
DX: Z13.1 Encounter for screening for diabetes mellitus (principal); E53.8 Deficiency of other specified B group vitamins; D64.9 Anemia, unspecified; E05.90 Thyrotoxicosis, unspecified without thyrotoxic crisis or storm; I11.9 Hypertensive heart disease without heart failure; I25.118 Atherosclerotic heart disease of native coronary artery with other forms of angina pectoris; E78.5 Hyperlipidemia, unspecified; E55.9 Vitamin D deficiency, unspecified; F17.210 Nicotine dependence, cigarettes, uncomplicated
CPT/HCPCS: 80053; 80061; 82306; 82607; 82728; 83036; 83540; 83550; 84443; 85025

== ENCOUNTER 2024-12-29 11:35 | Outpatient (CLI) | payer MEDICAID, SELFPAY ==
[2024-12-29 14:57] LABS: Hematocrit 32.2 % (37.0-47.0); Hemoglobin 10.2 g/dL (12.2-16.2); Immature Granulocytes % 0.2 %; Mean Corpuscular HGB Conc 31.7 g/dL (31.8-35.4); Mean Corpuscular Hemoglobin 28.4 pg (27.0-31.2); Mean Corpuscular Volume 89.7 fl (81-99); Nucleated Red Blood Cells % 0 %; Platelet Count 409 K/mm3 (142-424); Red Blood Count 3.59 M/mm3 (4.20-5.40); Red Cell Distribution Width-SD 58.8 fL; White Blood Count 4.7 K/mm3 (4.8-10.8)
[2024-12-29 15:26] LABS: Albumin Level 3.6 g/dl (3.5-5.0); Chloride 101 mmol/L (98-107); Sodium 137 mmol/L (136-145)
[2024-12-29 15:27] LABS: Potassium 4.7 mmoL/L (3.5-5.1)
[2024-12-29 15:29] LABS: Alanine Aminotransferase 11 U/L (12-78); Albumin/Globulin Ratio 1.3 (1.1-1.8); Alkaline Phosphatase 65 U/L (38-126); Anion Gap 9.7 mEq/L (5-15); Aspartate Amino Transferase 20 U/L (14-36); Bilirubin,Total 0.2 mg/dl (0.2-1.3); Blood Urea Nitrogen 9 mg/dl (7-17); Carbon Dioxide 31 mmol/L (22.0-30.0); Creatinine,Serum 0.80 mg/dl (0.52-1.04); Estimated Glomerular Filt Rate 75 ml/min (>60); GFR (African American) 90 ML/MIN (>60); Globulin 2.8 g/dL (1.3-3.2); Total Protein,Serum 6.4 g/dl (6.3-8.2)
[2024-12-29 15:30] LABS: Calcium 9.0 mg/dl (8.4-10.2); Glucose 89 mg/dl (74-100)
--- OUTSIDE RECORDS SUMMARY | 2024-12-31 09:22 | XMS_ITS | Referral Summary ---
Author Organization [employer] ([place], [place], [place], [place]) Address [address] [place] [address] Care Team Providers Care Remote Inpatient Coder Name Role Phone Cj Daniel Kendrick HUTCHISON Primary Care Provider +1 [phone] Allergies Active Allergy Reactions Criticality Noted Date Comments Codeine Hives High 05/28/2023 Guaifenesin Hives High 05/28/2023 Hydrocodone Hives High 05/28/2023 Terbutaline Hives High 05/28/2023 Medications albuterol HFA (VENTOLIN HFA) 90 mcg/actuation inhaler Inhale 2 puffs by mouth via inhaler every 6 (six) hours as needed for Wheezing. Active aspirin 81 MG EC tablet Take 1 tablet (81 mg total) by mouth daily. Active spironolactone (ALDACTONE) 100 MG tablet Take 1 tablet (100 mg total) by mouth daily. Active atorvastatin (Lipitor) 20 MG tablet Take 1 tablet (20 mg total) by mouth nightly. Active azelastine (ASTELIN) 137 mcg (0.1 %) nasal spray 1 spray by Nasal route 2 (two) times daily Use in each nostril as directed. Active budesonide-form oteroL (SYMBICORT) 160-4.5 mcg/actuation inhaler Inhale 2 puffs by mouth via inhaler 2 (two) times daily. Active clopidogreL (PLAVIX) 75 mg tablet Take 1 tablet (75 mg total) by mouth daily. Active ferrous sulfate 325 (65 FE) MG tablet Take 2 tablets (650 mg total) by mouth 3 (three) times a week MON/WED/FRI. Active fluticasone propionate (FLONASE) 50 mcg/actuation nasal spray 2 sprays by Nasal route daily. Active metoprolol tartrate (LOPRESSOR) 50 MG tablet Take 1 tablet (50 mg total) by mouth 2 (two) times daily. Active montelukast (SINGULAIR) 10 mg tablet Take 1 tablet (10 mg total) by mouth nightly. Active traMADoL (ULTRAM) 50 mg tablet Take 1 tablet (50 mg total) by mouth every 8 (eight) hours as needed for Pain. Max Daily Amount: 150 mg Active ipratropium-alb uteroL (DUO-NEB) 0.5 mg-3 mg(2.5 mg base)/3 mL nebulizer solution Take 3 mLs by nebulization every 6 (six) hours as needed for Wheezing. Active esomeprazole (NexIUM 24HR) 20 MG capsule Take 2 capsules (40 mg total) by mouth daily. Active Active Problems Problem Noted Date Diagnosed Date Lower GI bleed 07/02/2023 Social History Tobacco Use Types Packs/Day Years Used Date Smoking Tobacco: Never Smokeless Tobacco: Never Tobacco Cessation:Counseling Given: Not Answered Alcohol Use Standard Drinks/Week Comments Never 0 (1 standard drink = 0.6 oz pur e alcohol) Food Insecurity Answer Date Recorded Food run out past 12 months Not on file 05/17 Food did not last past 12 months Not on file 06/05/2023 Employment Answer Date Recorded Help finding and keeping a job Not on file 0 06/05/2023 Family and Community Support Answer Morgan e Recorded Help with Day to Day Activities Not on file 06/05/2023 Feeling Lonely or Isolated Not on file 06/04 Educational Attainment Answer Date Macario rded Speak language other than Bahamian at home Not on file 06/05/2023 Want help with school or training Not on file 06/05/2023 Substance Use Answer Date Recorded Used prescription meds for non-medical reasons N ot on file 06/05/2023 Used illegal drugs past 12 months Not on file 06/05/2023 Comments Unknown Sex and Gender Information Value Date Recorded Sex Assigned at Female 06/11/2023 11:50 AM CDT Legal Sex Female 2:31 PM CDT Gender Identity Female 06/11/2023 11:50 AM CDT Sexual Orientation Not on file Last Filed Vital Signs Vital Sign Reading Time Taken Comments Blood Pressure 130/73 07/03/2023 8:35 AM EDT Pulse 52 07/03/2023 8:35 AM EDT Temperature 36.5 C (97.7 F) 07/03/2023 8:35 AM EDT Respiratory Rate 16 07/03/2023 8:35 AM EDT Oxygen Saturation 97% 07/03/2023 9:11 AM EDT Inhaled Oxygen Concentration - - Weight - - Height - - Body Mass Index - - Plan of Treatment Not on file Insurance [address] [facility] [id number] [facility] Advance Directives For more information, please contact: [phone] * Full Code (Latest Code Status on File) Date Activated Date Inactivated Comments 07/02/2023 4:50 AM 07/03/2023 1:39 PM -Attempt Res uscitation if person has no pulse and is not breathing. -If no pulse or not breathing attempt CPR/CODE. -Call Rapid Response if patient is in distress. Care Teams Remote Inpatient Coder Relationship Specialty Start Date End Date Daniel Corona DO PCP - General Internal Medicine 07/01/23
--- OUTSIDE RECORDS SUMMARY | 2024-12-31 09:22 | XMS_ITS | Clinical Summary ---
Author Organization [employer] ([place], [place], [place], [place]) Address [address] [place] [address] Care Team Providers Care Grain Drier Operator Name Role Phone Cj Daniel Kendrick HUTCHISON Primary Care Provider +1 [phone] Allergies Active Allergy Reactions Criticality Noted Date [...] Date Macario rded Speak language other than Bangladeshi at home Not on file 06/05/2023 Want [...] Mass Index - - Plan of Treatment Health Maintenance Due Date Last Done Comments CT Colonography 1970 Colonoscopy 1970 Colorectal Cancer Screening 1970 FOBT/FIT 1970 Fit-DNA (Cologuard) 1970 Sigmoidoscopy 1970 Depression Screening (12+) 1982 Tobacco Cessation Counseling and Screening (12+) 04/01 HIV Screening 1985 Hepatitis C Screening 1988 Pap Smear 1991 Breast Cancer Screening 2010 Lipid Panel 2015 Pneumococcal 50+ years (1 of 1 - PCV) 2020 Shingles Vaccine (Zoster) (1 of 2) 2020 COVID-19 VACCINE (1 - season) 2024 Influenza Vaccine (#1) 2024 DTAP/TDAP/TD VACCINES (2 - Td or Tdap) 07/24/[address] [facility] [place] [address] [facility] Advance Directives For more information, please contact: [phone] * Full Code (Latest Code Status on File) Date Activated Date Inactivated Comments 07/02/2023 4:50 AM 07/03/2023 1:39 PM -Attempt Res uscitation if person has no pulse and is not breathing. -If no pulse or not breathing attempt CPR/CODE. -Call Rapid Response if patient is in distress. Care Teams Grain Drier Operator Relationship Specialty Start Date End Date Daniel Corona DO PCP - General Internal Medicine 07/01/23
== END 2024-12-29 23:59 ==
LOC: LAB.DROPOF 12-31 09:10
PROVIDERS: PCP Family Medicine; Visit Provider Family Medicine
DX: C21.0 Malignant neoplasm of anus, unspecified (principal); I10 Essential (primary) hypertension; E78.5 Hyperlipidemia, unspecified
CPT/HCPCS: 80053; 85025

== ENCOUNTER 2025-01-28 11:27 | Outpatient (CLI) | payer MEDICAID, SELFPAY ==
--- OUTSIDE RECORDS SUMMARY | 2025-01-28 11:43 | XMS_ITS | Clinical Summary ---
Author Organization [employer] ([place], [place], [place], [place], [place]) Address [address] [place] [address] Care Team Providers Care Transportation Dispatch Manager Name Role Phone Daniel Corona DO Primary Care Provider +1 [phone] Allergies Active Allergy Reactions Criticality Noted Date [...] Date Macario rded Speak language other than Swedish at home Not on file 06/05/2023 Want [...] 07/24/[address] [facility] [place] [address] [facility] Advance Directives For more information, please contact: [phone] * Full Code (Latest Code Status on File) Date Activated Date Inactivated Comments 07/02/2023 4:50 AM 07/03/2023 1:39 PM -Attempt Res uscitation if person has no pulse and is not breathing. -If no pulse or not breathing attempt CPR/CODE. -Call Rapid Response if patient is in distress. Care Teams Transportation Dispatch Manager Relationship Specialty Start Date End Date Daniel Corona DO PCP - General Internal Medicine 07/01/23
--- OUTSIDE RECORDS SUMMARY | 2025-01-28 11:43 | XMS_ITS | Referral Summary ---
Author Organization [employer] ([place], [place], [place], [place], [place]) Address [address] [place] [address] Care Team Providers Care Associate Financial Planner Name Role Phone Daniel Corona DO Primary Care Provider +1 [phone] Allergies Active Allergy Reactions Criticality Noted Date [...] Date Macario rded Speak language other than Bulgarian at home Not on file 06/05/2023 Want [...] Plan of Treatment Not on file Insurance [facility] Advance Directives For more information, please contact: [phone] * Full Code (Latest Code Status on File) Date Activated Date Inactivated Comments 07/02/2023 4:50 AM 07/03/2023 1:39 PM -Attempt Res uscitation if person has no pulse and is not breathing. -If no pulse or not breathing attempt CPR/CODE. -Call Rapid Response if patient is in distress. Care Teams Associate Financial Planner Relationship Specialty Start Date End Date Daniel Corona DO PCP - General Internal Medicine 07/01/23
--- NOTE | 2025-01-28 12:00 | NM_ITS ---
APPROVED REPORT Exam: Nuclear Stress Test Indication: Chest pain, SOB, Fatigue, HTN, High cholesterol, Tobacco use, Family history, CAD Patient Location: Outpatient Stress Tech: Haylie MAHAJAN Tech:Adia Lee CAROLKenneth RT(R)(N) Ht: 5 ft 5 in Wt: 100 lbs Bra Size: 34B HR: 61 bpm BP: 169/87 mmHg BSA: 1.47 m2 TID: 1.09 BMI: 16.6 History: Chest pain, SOB, Fatigue, HTN, High cholesterol, Tobacco use, Family history, CAD Procedure: Patient received 0.4 mg of intravenous Lexiscan, resting heart rate 61 bpm, resting blood pressure 169/87 mmHg, with Lexiscan maximum heart rate achieved was 66 bpm which is % of the maximum predicted heart rate and blood pressure was 174/62 mmHg. With Lexiscan, patient denied any complaint of chest pain. Cardiac Stress and Resting SPECT Images: Cardiac Stress and Resting SPECT images were obtained using technetium 99m Myoview 32.7 mCi stress and 10.52 mCi at rest. Resting and stress imaging in supine and prone positions demonstrate no evidence of fixed or reversible perfusion defects. Gated imaging of straits normal global LV systolic function. LVEF is calculated at 55%. Conclusion: No evidence of fixed or reversible perfusion defects. Gated imaging of straits normal global LV systolic function. LVEF is calculated at 55%. Electronically signed by : Lizabeth Rizo MD 02/01/2025 14:05:21
[2025-01-28 12:40] VITALS: BP 169/87; PULSE 63; RESP 14
[2025-01-28] MEDS: ISOTOPE MYOVIEW (PER STUDY) 1 DOSE IV (13:23)
[2025-01-28] MEDS: SODIUM CHLORIDE 0.9% 10ML SYR (RAD ONLY) 10 ML IV ×2 (13:23→13:24)
--- NOTE | 2025-01-28 14:30 | CA_ITS ---
APPROVED REPORT EXAM: Comprehensive 2D, Doppler, and color-flow Echocardiogram Bookmobile Clerk: Raegan Morgan, DENISE, RVS Ht: 5 ft 5 in Wt: 100lbs BSA: 1.47 BP: 127/82 mmHg Indications: CAD, COPD, Rectal cancer-chemo,radiarion therapy, Smoker, HTN, HLD, SOB, Fatigue 2D Dimensions Left Atrium 2.04 cm LA Volume 23.00 mL LA Volume Index 15.20 mL/m2 (M/F) 16-34 EF AP4 63.40 % GL Strain -25.1 % M-Mode Dimensions RVDd 2.55 cm (0.9-2.6) LA Diam 2.57 cm (1.9-4.0) LVDd 4.43 cm (3.5-5.7) LVDs 2.35 cm (3.5-5.7) IVSd 0.74 cm (0.6-1.1) PWd 0.77 cm (0.6-1.1) EF (Teich) 78.60% EPSs 0.13 cm FS 47.00% EDV (Teich) 89.10 mL TAPSE 1.98 (<1.7) ESV (Teich) 19.10 mL LV Diastology E Decel Time 187 (160-240 msec) E/A Ratio 0.93 MED A' 9.20 cm/s LAT A' 7.80 cm/s Aortic Valve BREONNA Index 1.55 cm2/m2 AoV Peak Sarbjit. 131.0 (50-130 cm/s) AO Peak GR. 6.80 mmHg AO Mean GR. 3.50 (<5 mmHg) AO VTI 29.1 (18-25 cm) BREONNA (VTI) 2.34 (2.5-4.5 cm2) Mitral Valve MV A Velocity 97.0 (40-130 cm/s) E/A Ratio 0.93 Pulmonary Valve PV Peak Velocity 85.0 (50-150 cm/s) Tricuspid Valve TR P. Velocity 280.00 cm/s RAP Estimate 10.00 mmHg RVSP 41.40 mmHg Left Ventricle The left ventricle is normal size. Left ventricular systolic function is normal. The left ventricular ejection fraction is within the normal range. There is normal left ventricular wall thickness. There is normal LV segmental wall motion. The left ventricular diastolic function is normal. LVEF is 55% Right Ventricle The right ventricle is normal size. The right ventricular systolic function is normal. Atria The left atrium size is normal. The right atrium size is normal. There is no color Doppler evidence of interatrial shunt. Aortic Valve The aortic valve opens well. There is no hemodynamically significant aortic valvular stenosis. No aortic regurgitation is present. Mitral Valve The mitral valve is normal in structure. No evidence of mitral valve stenosis. Trace mitral regurgitation is present. Tricuspid Valve The tricuspid valve leaflets are thin and pliable. Mild tricuspid regurgitation. RVSP is normal. Pulmonic Valve The pulmonary valve is grossly normal in structure. Trace pulmonic valve regurgitation is present. Great Vessels The aortic root is normal in size. IVC is normal in size and collapses >50% with inspiration. Pericardium There is no pericardial effusion. Other Information Study Quality: Fair Conclusion Normal biventricular systolic function. Mild TR. Electronically signed by : Lizabeth Rizo MD 02/03/2025 22:52:31
== END 2025-01-28 23:59 | disposition home or self-care (01) ==
LOC: RAD 11:27
PROVIDERS: PCP Family Medicine; Visit Provider Physician Assistant
DX: I07.1 Rheumatic tricuspid insufficiency (principal); I25.10 Atherosclerotic heart disease of native coronary artery without angina pectoris; I10 Essential (primary) hypertension; E78.00 Pure hypercholesterolemia, unspecified; J44.9 Chronic obstructive pulmonary disease, unspecified; C64.9 Malignant neoplasm of unspecified kidney, except renal pelvis; Z79.69 Long term (current) use of other immunomodulators and immunosuppressants; F17.200 Nicotine dependence, unspecified, uncomplicated
CPT/HCPCS: 78452; 93017; 93018; 93306; A9502; J2785

== ENCOUNTER 2025-02-16 09:29 | Outpatient (CLI) | payer MEDICAID, SELFPAY ==
[2025-02-16 10:43] LABS: Hematocrit 37.0 % (37.0-47.0); Hemoglobin 11.3 g/dL (12.2-16.2); Immature Granulocytes % 0.2 %; Mean Corpuscular HGB Conc 30.5 g/dL (31.8-35.4); Mean Corpuscular Hemoglobin 27.0 pg (27.0-31.2); Mean Corpuscular Volume 88.5 fl (81-99); Nucleated Red Blood Cells % 0 %; Platelet Count 380 K/mm3 (142-424); Red Blood Count 4.18 M/mm3 (4.20-5.40); Red Cell Distribution Width-SD 62.8 fL; White Blood Count 6.1 K/mm3 (4.8-10.8)
[2025-02-16 11:27] LABS: Albumin Level 4.4 g/dl (3.5-5.0); Chloride 101 mmol/L (98-107)
[2025-02-16 11:28] LABS: Potassium 4.3 mmoL/L (3.5-5.1); Sodium 145 mmol/L (136-145)
[2025-02-16 11:30] LABS: Alanine Aminotransferase 11 U/L (12-78); Albumin/Globulin Ratio 1.5 (1.1-1.8); Alkaline Phosphatase 53 U/L (38-126); Anion Gap 19.3 mEq/L (5-15); Aspartate Amino Transferase 23 U/L (14-36); Bilirubin,Total 0.4 mg/dl (0.2-1.3); Blood Urea Nitrogen 11 mg/dl (7-17); Carbon Dioxide 29 mmol/L (22.0-30.0); Creatinine,Serum 0.80 mg/dl (0.52-1.04); Estimated Glomerular Filt Rate 75 ml/min (>60); GFR (African American) 90 ML/MIN (>60); Globulin 2.9 g/dL (1.3-3.2); Total Protein,Serum 7.3 g/dl (6.3-8.2)
[2025-02-16 11:31] LABS: Calcium 9.4 mg/dl (8.4-10.2); Glucose 79 mg/dl (74-100)
== END 2025-02-16 23:59 | disposition home or self-care (01) ==
LOC: LAB 09:29
PROVIDERS: PCP Family Medicine; Visit Provider Internal Medicine Medical Oncology
DX: C21.0 Malignant neoplasm of anus, unspecified (principal)
CPT/HCPCS: 36415; 80053; 85025

== ENCOUNTER 2025-02-18 07:39 | Outpatient (CLI) | payer MEDICAID, SELFPAY ==
--- OUTSIDE RECORDS SUMMARY | 2025-02-18 07:44 | XMS_ITS | Clinical Summary ---
Author Organization [employer] ([place], [place], [place], [place], [place]) Address [address] [place] [address] Care Team Providers Care Transliterator Name Role Phone Daniel Corona DO Primary Care Provider +1 [phone] Allergies Active Allergy Reactions Criticality Noted Date [...] Date Macario rded Speak language other than Vincentian at home Not on file 06/05/2023 Want [...] 07/24/[address] [facility] [place] [address] [facility] Advance Directives For more information, please contact: [phone] * Full Code (Latest Code Status on File) Date Activated Date Inactivated Comments 07/02/2023 4:50 AM 07/03/2023 1:39 PM -Attempt Res uscitation if person has no pulse and is not breathing. -If no pulse or not breathing attempt CPR/CODE. -Call Rapid Response if patient is in distress. Care Teams Transliterator Relationship Specialty Start Date End Date Daniel Corona DO PCP - General Internal Medicine 07/01/23
--- OUTSIDE RECORDS SUMMARY | 2025-02-18 07:44 | XMS_ITS | Referral Summary ---
Author Organization [employer] ([place], [place], [place], [place], [place]) Address [address] [place] [address] Care Team Providers Care Impregnator And Drier Helper Name Role Phone Daniel Corona DO Primary Care Provider +1 [phone] Allergies Active Allergy Reactions Criticality Noted Date [...] Date Macario rded Speak language other than Cook Islander at home Not on file 06/05/2023 Want [...] Plan of Treatment Not on file Insurance [facility] Advance Directives For more information, please contact: [phone] * Full Code (Latest Code Status on File) Date Activated Date Inactivated Comments 07/02/2023 4:50 AM 07/03/2023 1:39 PM -Attempt Res uscitation if person has no pulse and is not breathing. -If no pulse or not breathing attempt CPR/CODE. -Call Rapid Response if patient is in distress. Care Teams Impregnator And Drier Helper Relationship Specialty Start Date End Date Daniel Corona DO PCP - General Internal Medicine 07/01/23
--- NOTE | 2025-02-18 08:00 | CT_ITS ---
FINAL REPORT TECHNIQUE: After the administration of intravenous contrast, axial images were obtained through the abdomen and pelvis by computed tomography. The study was performed with techniques to keep radiation dose as low as reasonably achievable, (ALARA). Individual dose reduction techniques using automated exposure control or adjustment of mA and/or kV according to the patient's size were employed. CLINICAL HISTORY: anal cancer COMPARISON: 02/24/2025 FINDINGS: Abdomen: The liver parenchyma is homogeneous. There is a tiny benign cyst in the posterior right lobe of the liver. The gallbladder is present. The spleen, pancreas, adrenals and kidneys appear unremarkable. The aorta is normal in caliber. There is no free fluid or adenopathy. Pelvis: The appendix is not identified. There is a moderate amount of stool in the colon. The urinary bladder is decompressed. The uterus is retroverted. There is no free fluid or adenopathy. Bilateral iliac artery stents are present. IMPRESSION: No acute intra-abdominal process. No evidence of metastatic disease. Reviewed, Interpreted and Dictated by Choco Echols MD Transcribed by Katelin William Authenticated and [facility]
--- NOTE | 2025-02-18 08:00 | CT_ITS ---
FINAL REPORT TECHNIQUE: Routine axial images were obtained from the lung apices to below the diaphragm following IV contrast administration. Individualized dose reduction techniques using automated exposure control or adjustment of the mA and/or kV according to the patient size were employed. CLINICAL HISTORY: anal cancer COMPARISON: 03/02/2025 FINDINGS: Mediastinal vasculature is adequately opacified. The ascending aorta is normal in size with no evidence of dissection or aneurysm. No pleural or pericardial effusion is seen. There are moderate changes of centrilobular emphysema. There is a small nodule at the right lung apex measuring 5 mm, stable. A second nodule measuring 5 mm in the posterior right apex on image 52 series 2 is also stable. IMPRESSION: Stable nodular densities right lung apex favored to be postinflammatory. Changes of centrilobular emphysema. No evidence of metastatic disease. Reviewed, Interpreted and Dictated by Choco Echols MD Transcribed by Katelin William Authenticated and [facility]
[2025-02-18] MEDS: SODIUM CHLORIDE 0.9% 10ML SYR (RAD ONLY) 10 ML IV (08:02)
[2025-02-18] MEDS: IOPAMIDOL-370 (76%);100ML BOTTLE 75 ML IV (08:02)
== END 2025-02-18 23:59 | disposition home or self-care (01) ==
LOC: RAD 07:40
PROVIDERS: PCP Family Medicine; Visit Provider Internal Medicine Medical Oncology
DX: C21.0 Malignant neoplasm of anus, unspecified (principal); C20 Malignant neoplasm of rectum; D12.6 Benign neoplasm of colon, unspecified; J43.2 Centrilobular emphysema; R91.8 Other nonspecific abnormal finding of lung field
CPT/HCPCS: 71260; 74177; Q9967

== ENCOUNTER 2025-03-01 12:39 | Outpatient (CLI) | payer MEDICAID, SELFPAY ==
[2025-03-01] MEDS: ALBUTEROL 0.083% 2.5 MG/3 ML NEB IH (13:35)
[2025-03-01 13:45] VITALS: PULSE 55; PULSE 58
== END 2025-03-01 23:59 | disposition home or self-care (01) ==
LOC: RT 12:40
PROVIDERS: PCP Family Medicine; Visit Provider Internal Medicine Pulmonary Disease
DX: J44.9 Chronic obstructive pulmonary disease, unspecified (principal); R94.2 Abnormal results of pulmonary function studies
CPT/HCPCS: 94060; 94618; 94640; 94726; 94729

== ENCOUNTER → 2025-03-03 07:36 | Outpatient (CLI) | payer MEDICAID, SELFPAY ==
--- OUTSIDE RECORDS SUMMARY | 2025-03-03 07:39 | XMS_ITS | Clinical Summary ---
Author Organization [employer] ([place], [place], [place], [place], [place]) Address [address] [place] [address] Care Team Providers Care Derrick Worker Name Role Phone Daniel Corona DO Primary Care Provider +1 -[phone] Allergies Active Allergy Reactions Criticality Noted Date [...] Date Macario rded Speak language other than Jamaican at home Not on file 06/05/2023 Want [...] [address] [facility] [place] [address] [facility] [place] [address] Advance Directives For more information, please contact: [phone] * Full Code (Latest Code Status on File) Date Activated Date Inactivated Comments 07/02/2023 4:50 AM 07/03/2023 1:39 PM -Attempt Res uscitation if person has no pulse and is not breathing. -If no pulse or not breathing attempt CPR/CODE. -Call Rapid Response if patient is in distress. Care Teams Derrick Worker Relationship Specialty Start Date End Date Daniel Corona DO PCP - General Internal Medicine 07/01/23
--- OUTSIDE RECORDS SUMMARY | 2025-03-03 07:39 | XMS_ITS | Referral Summary ---
Author Organization [employer] ([place], [place], [place], [place], [place]) Address [address] [place] [address] Care Team Providers Care Cyber Security Architect Name Role Phone Daniel Corona DO Primary Care Provider +1 -[phone] Allergies Active Allergy Reactions Criticality Noted Date [...] Date Macario rded Speak language other than Cay[place] Islander at home Not on file 06/05/2023 [...] Plan of Treatment Not on file [facility] Advance Directives For more information, please contact: [phone] * Full Code (Latest Code Status on File) Date Activated Date Inactivated Comments 07/02/2023 4:50 AM 07/03/2023 1:39 PM -Attempt Res uscitation if person has no pulse and is not breathing. -If no pulse or not breathing attempt CPR/CODE. -Call Rapid Response if patient is in distress. Care Teams Cyber Security Architect Relationship Specialty Start Date End Date Daniel Corona DO PCP - General Internal Medicine 07/01/23
--- NOTE | 2025-03-03 08:00 | CT_ITS ---
FINAL REPORT CLINICAL HISTORY: lung cancer screening current smoker 1ppd x40 years COMPARISON: 02/18/2025 FINDINGS: CT CHEST LOW DOSE SCREENING HISTORY: Screening exam for lung cancer. 56-year-old female, current smoker, [id number] history. DOSE: CTDI vol: 2.90 mGy, DLP: 109.42 mGy*cm TECHNIQUE: Axial CT without IV contrast administration using low dose protocol. This study was performed with techniques to keep radiation doses as low as reasonably achievable, (ALARA). Individualized dose reduction techniques using automated exposure control or adjustment of mA and/or kV according to the patient's size were employed. There is a small spiculated density best seen on image #13 in the right apex, stable when compared to the prior LDCT and consistent with scar. There is a 3 mm right lower lobe nodule best seen on image #64, also stable. Old calcified granulomas are identified. No pulmonary lesions are seen suspicious for neoplasm. No pleural or pericardial effusion is seen. No adenopathy or mass lesion is present. IMPRESSION: Stable nodules as described. LUNG RADS CATEGORY 2 RECOMMENDATION: 12 month LDCT follow up Reviewed, Interpreted and Dictated by Power Cerna MD Transcribed by Richelle Cabral Authenticated and [facility]
== END ==
LOC: RAD 07:37
PROVIDERS: PCP Family Medicine; Visit Provider Internal Medicine Pulmonary Disease
DX: Z12.2 Encounter for screening for malignant neoplasm of respiratory organs (principal); F17.210 Nicotine dependence, cigarettes, uncomplicated; R91.8 Other nonspecific abnormal finding of lung field; J98.4 Other disorders of lung
CPT/HCPCS: 71271